=== PATIENT | male | born 1990 | race Caucasian/White ===

== ENCOUNTER 2021-06-29 15:40 | Emergency (ER) | payer OTHER, MEDICARE, SELFPAY ==
--- NOTE | ~2021-06-29 | XR_ITS ---
EXAMINATION: XR FOOT, LEFT CLINICAL INFORMATION: Subacute trauma with pain dorsal lateral foot COMPARISON: None TECHNIQUE: AP, lateral, and oblique views of the left foot. FINDINGS: The bones and soft tissues are normal. No fracture. Alignment is anatomic. Joint spaces are maintained. XR/XR foot LT min 3V IMPRESSION: Normal left foot.
[2021-06-29 17:43] VITALS: BP 135/65; PULSE 135; RESP 22; TEMP 36.6; O2SAT 98; BMI 28.5
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
[2021-06-29 18:33] LABS: MANUAL DIFF FLAG NO
[2021-06-29 18:53] LABS: Anion Gap 9 (12-20); Blood Urea Nitrogen 17 mg/dL (9-16); Calcium 9.1 mg/dL (8.4-10.2); Carbon Dioxide 27 mmol/L (22-29); Chloride 109 mmol/L (96-108); Creatinine Clr Calc Pharmacy 125.7; Estimated Glomerular Filt Rate > 60; Glucose Random 107 mg/dL (60-115); Potassium 3.5 mmol/L (3.3-5.1); Sodium 141 mmol/L (135-145)
[2021-06-29 18:56] LABS: Basophils Percent Auto 0.2 % (0-2); Eosinophils Absolute Auto 0.1 X10*3/uL (0.0-0.4); Eosinophils Percent Auto 0.4 % (0-4); Hematocrit 42.5 % (42.0-52.0); Hemoglobin 14.8 g/dl (14.0-18.0); Imm Gran Abs Auto 0.11 X10*3/uL (0.00-0.03); Imm Gran Pct Auto 0.8 % (0.0-0.4); Lymphocytes Absolute Auto 0.9 X10*3/uL (1.2-4.9); Lymphocytes Percent Auto 6.7 % (20-40); Mean Corpuscular HGB Conc 34.8 g/dl (31.0-36.0); Mean Corpuscular Hemoglobin 31.4 pg (27.0-33.0); Mean Corpuscular Volume 90.2 fL (80.0-98.0); Mean Platelet Volume 9.8 fL (9.4-12.4); Monocytes Absolute Auto 0.3 X10*3/uL (0.1-1.2); Neutrophils Absolute Auto 11.7 x10*3/uL (2.0-8.3); Neutrophils Percent Auto 89.9 % (45-73); Platelet Count 160 X10*3/uL (160-400); Red Blood Count 4.71 X10*6/uL (4.60-5.80); Red Cell Distribution Width 12.5 % (11.0-16.0); Troponin-I High Sensitivity < 3.5 ng/L (<3.5-35.0)
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
[2021-06-29 23:23] VITALS: BP 106/52; PULSE 95; RESP 15; TEMP 37.1; O2SAT 98
[2021-06-29] MEDS: 0.9 % Sodium Chloride 1,000 ML 999 ML IV (23:34)
[2021-06-29] MEDS: clonazePAM 1 MG TABLET PO (23:36)
[2021-06-30] LABS: COVID-19 Test Negative (Negative)
[2021-06-30 00:14] VITALS: BP 109/53; PULSE 95; RESP 18; O2SAT 96
== END 2021-06-30 01:36 | disposition home or self-care (01) ==
LOC: HO.ED 06-30 00:54
PROVIDERS: Emergency Provider Emergency Medicine
DX: S93.602A Unspecified sprain of left foot, initial encounter (principal); R11.0 Nausea; X58.XXXA Exposure to other specified factors, initial encounter; Y93.9 Activity, unspecified; Y92.9 Unspecified place or not applicable; Y99.9 Unspecified external cause status; Z79.899 Other long term (current) drug therapy; Z20.822 Contact with and (suspected) exposure to COVID-19
CPT/HCPCS: 36415; 73630; 80048; 82550; 84484; 85025; 87635; 93005; 96360; 99284; 99285

== ENCOUNTER 2023-10-17 09:22 | Emergency (ER) | payer OTHER, SELFPAY ==
--- NOTE | ~2023-10-17 | XR_ITS ---
EXAMINATION: XR ANKLE, LEFT CLINICAL INFORMATION: Left ankle injury and pain COMPARISON: None available. TECHNIQUE: AP, lateral, and mortise views of the left ankle. FINDINGS: BONES: A small avulsion fracture is seen at the tip of left medial malleolus. Additional vertical radiolucency is seen in anterior distal left tibia extending from the articular plafond into distal left tibial shaft. JOINTS: Alignment of joints is normal. SOFT TISSUE: Soft tissue is normal. No radiopaque foreign body or abnormal air collection is seen. XR/XR ankle LT min 3V IMPRESSION: 1. Small avulsion fracture at the tip of left medial malleolus. 2. Vertical radiolucency in anterior distal left tibia extending from the articular plafond into distal left tibial shaft. This may represent an additional fracture.
--- NOTE | ~2023-10-17 | XR_ITS ---
STUDY: Left tibia and fibula and left foot INDICATION: Left leg pain after jumping injury COMPARISON: Same day left ankle FINDINGS: Visualized knee joint is intact. No proximal or mid tibial or fibular fracture identified. Visualized tarsal bones are intact. Alignment is maintained. On AP view, medial malleolar whitening not excluded. Ankle soft tissues appear prominent. Medial malleolar and avulsion is partially visualized. Distal tibial fracture questioned on same day ankle radiograph not reproduced with certainty on current radiograph. XR/XR foot LT min 3V IMPRESSION: No additional fractures recognized. Please see separately reported same day left ankle study for description of ankle fractures.
--- NOTE | ~2023-10-17 | XR_ITS ---
STUDY: Left tibia and fibula and left foot INDICATION: Left leg pain after jumping injury COMPARISON: Same day left ankle FINDINGS: Visualized knee joint is intact. No proximal or mid tibial or fibular fracture identified. Visualized tarsal bones are intact. Alignment is maintained. On AP view, medial malleolar whitening not excluded. Ankle soft tissues appear prominent. Medial malleolar and avulsion is partially visualized. Distal tibial fracture questioned on same day ankle radiograph not reproduced with certainty on current radiograph. XR/XR tibia fibula LT 2V IMPRESSION: No additional fractures recognized. Please see separately reported same day left ankle study for description of ankle fractures.
[2023-10-17 09:45] VITALS: BP 142/77; PULSE 90; RESP 20; TEMP 36.5; O2SAT 98; BMI 28.2
--- NOTE | 2023-10-17 13:14 | ED.LOWEXIN ---
HPI - Extremity Injury (Lower) General Chief Complaint: Extremity Injury, Lower Stated Complaint: broken ankle ? Time Seen by Provider: 10/17/23 12:45 Source: patient and RN notes reviewed Mode of arrival: ambulatory Limitations: no limitations History of Present Illness HPI Narrative: This is a 33-year-old male, with no known medical problems, who presents emergency department with complaints of left foot and left ankle pain since last night. Patient states that he jumped off a porch, which was approximately 6 ft high, landed on his feet. He immediately felt pain in his left ankle. He states that the pain is much worse with ambulation. He denies hitting his head or loss of consciousness. He denies taking any medications prior to his arrival. Denies injuring this foot and ankle in the past. No other complaints or concerns at this time. MD complaint: ankle injury and foot injury Onset (ago): day(s) Place: home Severity: moderate Relieving factors: nothing Exacerbating factors: weight bearing, movement and palpation Context: fall Related Data Previous Rx's ?Medication ?Instructions ?Recorded ondansetron 4 mg disintegrating 4 mg PO Q6H PRN nausea and 06/30/21 tablet vomiting #10 tabs acetaminophen 500 mg tablet 500 mg PO Q6H PRN pain #30 tabs 10/17/23 (Tylenol Extra Strength) ibuprofen 600 mg tablet 600 mg PO Q6H PRN pain #30 tabs 10/17/23 morphine 15 mg immediate release 15 mg PO Q6H PRN pain #7 tabs 10/17/23 tablet Allergies Allergy/AdvReac Type Severity Reaction Status Date / Time No Known Allergies Allergy Unknown UNKNOWN Verified 10/17/23 09:47 [NO KNOWN ALLERGIES] Review of Systems Review of Systems: Yes all other systems are reviewed and are negative Constitutional: Constitutional: Reports as per [facility] Past Medical History Attestation statement: The following information was validated with the patient. Medical History PTSD (post-traumatic stress disorder) Anxiety Anxiety Social History Social History Alcohol intake: never Patient Tobacco Use Status: Current everyday Tobacco user Substance Use Type: Painkillers Physical Exam Vital Signs: Vital Signs: Last Vital Signs Temp 98.0 F 10/17/23 16:32 Pulse 71 10/17/23 16:32 Resp 18 10/17/23 16:32 BP 121/74 10/17/23 16:32 Pulse Ox 97 10/17/23 16:32 O2 Del Method Room Air 10/17/23 16:32 BMI result Body Mass Index 28.2 Const: General: cooperative, comfortable and no acute distress Orientation/consciousness: patient oriented x3 Limitations: no limitations HEENT: Head: Yes normal to inspection, Yes normocephalic and Yes atraumatic Ears: hearing grossly normal bilaterally General nose exam: Normal external nose present Face and sinus: Yes normal facial exam Mouth: Normal oral and palatal mucosa present, oropharynx normal and moist mucous membranes Throat: Yes posterior oropharynx normal Eyes: General: appearance normal, both eyes and all related structures Eyelids: Yes eyelids normal Conjunctivae: conjunctivae normal Sclerae: sclerae normal Pupils: Equal, round and reactive pupils present EOM: EOMs intact bilaterally Neck: Neck: Yes normal visual inspection, Yes full ROM and Yes no lymphadenopathy Lymphatic: no lymphadenopathy noted Chest: Chest palpation & inspection: normal inspection of the chest Resp: Effort & Inspection: normal respiratory effort and able to speak in complete sentences Auscultation: clear to auscultation bilaterally, no crackles, no rales, no rhonchi and no wheezes Cardio: Rate: regular rate Rhythm: regular rhythm Heart sounds: S1 normal heart sound present and S2 normal heart sound present GI: Inspection: Yes normal to inspection Skin: General skin exam: no rashes or lesions noted Trauma: no lacerations or abrasions Wounds: no wounds Neuro: General: patient oriented x3 and moves all extremities Cranial nerves: Yes Equal, round and reactive pupils present Extrem: Other: Left ankle with moderate edema and ecchymosis seen in the lateral aspect with tenderness palpation overlying the medial and lateral malleolus. Tenderness palpation along the mid tibia and distal tibia. DP pulse 2 +. No open wounds. Distal sensation circulation intact. Limited range of motion secondary to the pain. General: Yes normal to inspection Right upper extremity: normal to inspection Left upper extremity: normal to inspection Right lower extremity: normal to inspection Left lower extremity: normal to inspection Course Reevaluation(s) Reevaluation #1: X-rays were reviewed revealing motion fracture at the tip of the left medial malleolus as well as vertical radiolucency in the anterior distal left tibia extending from the articular plafond into distal left tibial shaft. Patient does have tenderness overlying this region, will treat as a fracture. Discussed case with orthopedic PA, recommending posterior and stirrup splint, nonweightbearing. Patient given orthopedic follow-up, advised on return precautions. He understands and agrees with plan. Patient stable for discharge. Medications Administered Discontinued Medications Generic Name Dose Route Start Last Admin Trade Name Jaylenq PRN Reason Stop Dose Admin Morphine Sulfate 15 mg 10/17/23 13:23 10/17/23 13:47 Morphine Sulfate Immed Release 15 Mg Tablet PO 10/17/23 13:24 15 mg ONCE ONE Administration Medical Decision Making Medical Decision Making MDM Narrative: This is a 33-year-old male, with no known medical problems, presents to the emergency department with complaints of left ankle pain since yesterday. Patient states that he jumped off a deck which was approximately 6 ft up and landed directly on his feet. He states that he immediately had pain in his left ankle and foot. Differential diagnoses include fracture, contusion, sprain, strain. On arrival, blood pressure mildly elevated 142/77. Physical exam findings concerning for fracture, obtain x-rays for further evaluation. Plan: X-ray Differential Diagnosis Differential Diagnoses: The differential diagnosis associated with the presentation includes See above Admission/Observation Consideration of admission/observation: Escalation of care including admission/observation considered Escalation of care including admission/observation considered however given workup today not warranted at this time. Consult Healthcare Provider Management of the patient was discussed with: Keyboard Instrument Repairer Aicha Jurado PA-C Radiology Impression Discussion of test interpretation with radiology: I have reviewed the radiologist's reading. Radiologist Impression: XR/XR ankle LT min 3V IMPRESSION: 1. Small avulsion fracture at the tip of left medial malleolus. 2. Vertical radiolucency in anterior distal left tibia extending from the articular plafond into distal left tibial shaft. This may represent an additional fracture. Dictated By: Lalo Proctor Signed By: <Electronically sign Procedures Orthopedic Splinting/Casting Injury #1: Side: left Lower Extremity Immobilizer: posterior splint and stirrup splint Other Orthopedic Equipment: crutches Discharge Plan Discharge Clinical Impression: Ankle fracture, right, Fracture of tibial plafond Patient Disposition: Home, Self-Care Instructions: Ankle Fracture (ED), Leg Fracture (ED), Crutch Instructions (ED) Additional Instructions: Your seen in the emergency department and you have a fracture along her medial malleolus (inner ankle) You also have a fracture along your distal tibia. Please wear splint until you follow-up with Orthopedics. Call today to make an appointment. Take ibuprofen and Tylenol as needed for pain. I am also prescribing her stronger pain medication also known as morphine. Only take this for severe pain only. We are unable to refill this medication from the emergency room. If any new or worsening symptoms occur including but not limited to severe pain, chest pain, shortness for breath, numbness and tingling into your toes, please return for re-evaluation. Prescriptions: New ibuprofen 600 mg tablet 600 mg PO Q6H PRN (Reason: pain) Qty: 30 0RF acetaminophen [Tylenol Extra Strength] 500 mg tablet 500 mg PO Q6H PRN (Reason: pain) Qty: 30 0RF morphine 15 mg tablet 15 mg PO Q6H PRN (Reason: pain) Qty: 7 0RF Rx Instructions: Partial Fill upon patient request. No Action ondansetron 4 mg tablet,disintegrating 4 mg PO Q6H PRN (Reason: nausea and vomiting) Qty: 10 0RF Referrals: [facility] [place] Orthopedic Surgeons [Provider Group] Interventions: ED Discharge Assessment Last Done: 10/17/23 16:32 Discharge Date/Time: 10/17/23 16:33 Print Language: [place]an
[2023-10-17] MEDS: Morphine Sulfate Immed Release 15 MG TABLET PO (13:47)
[2023-10-17 13:48] VITALS: BP 124/59; PULSE 59; RESP 18; TEMP 36.6; O2SAT 97
[2023-10-17 16:32] VITALS: BP 121/74; PULSE 71; RESP 18; TEMP 36.7; O2SAT 97
== END 2023-10-17 16:33 | disposition home or self-care (01) ==
PROVIDERS: Emergency Provider Emergency Medicine
DX: S82.891A Other fracture of right lower leg, initial encounter for closed fracture (principal); M79.605 Pain in left leg; M25.572 Pain in left ankle and joints of left foot; W01.0XXA Fall on same level from slipping, tripping and stumbling without subsequent striking against object, initial encounter; Y93.9 Activity, unspecified; Y92.9 Unspecified place or not applicable; Y99.8 Other external cause status
CPT/HCPCS: 29505; 73590; 73610; 73630; 99284

== ENCOUNTER 2023-10-26 08:37 | Outpatient (AMB) | payer OTHER, SELFPAY ==
--- NOTE | 2023-10-26 08:38 | MHC.OFFVIS ---
Vital Signs 10/26/23 08:43 Height 6 ft Weight 208 lb BMI 28.2 Intake Visit Reasons: F/C ED follow up RT ankle fx 10/17/23 Intake Note: Angelito a 33 year old male who presents today for an ER follow up of left ankle fracture, DOI 10/16/23. Patient states that he jumped off his porch, which was approximately 7 ft high, landing on his feet. He immediately felt pain in his left ankle, he presented to [facility] the following day where xrays were taken and placed in a splint. Currently his pain level is 7 out of 10. States throbbing pain and at times shooting pain up his leg. Denies numbness or tingling. Allergies No Known Allergies [NO KNOWN ALLERGIES] Allergy (Unknown, Verified 10/26/23 08:48) UNKNOWN Medication List - Last Reconciled 10/26/23 by XIOMARA Sweet-Daniel acetaminophen (Tylenol Extra Strength) 500 mg PO Q6H PRN dextroamphetamine-amphetamine 20 mg (Adderall) 40 mg PO DAILY ibuprofen 600 mg PO Q6H PRN morphine 15 mg PO Q6H PRN ondansetron 4 mg PO Q6H PRN HPI HPI F/C ED follow up RT ankle fx 10/17/23: Details: 33-year-old male who presents to the office today for an ED follow-up of right ankle injury after he jumped off a porch which was approx. 7 feet high and landing on his feet, 10/16/23. He reports he immediately felt pain in his left ankle and was presented to ED the following day where x-rays were performed and he was placed in a splint. He currently states he has throbbing pain in his ankle and experiences occasional throbbing pain up his leg. He rates the pain as 7 on the scale of 0-10. He denies any numbness or tingling. [facility] Medical History PTSD (post-traumatic stress disorder) Anxiety Anxiety Social History (Updated 10/26/23 @ 08:52 by DAVID Sosa) Alcohol intake: never Patient Tobacco Use Status: Former Tobacco user Substance Use Type: Painkillers Current occupational status: student Review of Systems Const All systems reviewed & are unremarkable except as noted in HPI and below Physical Exam Vital Signs: BMI result Body Mass Index 28.2 Const General: cooperative, healthy appearing, comfortable, no acute distress, well developed and alert Orientation/consciousness: patient oriented x3 HEENT Head: Yes normal to inspection, Yes normocephalic and Yes atraumatic Eyes General: appearance normal, both eyes and all related structures Resp Effort & Inspection: normal respiratory effort and able to speak in complete sentences Cardio Rate: regular rate Peripheral pulses: Peripheral pulses 2+ throughout GI Palpation (GI): Soft to palpation Skin Lesions: no lesions Rashes: no rashes Neuro General: patient oriented x3 Extrem Other: Left ankle: Normal to inspection. He does have some tenderness over the anterior aspect of the talus and also to the medial malleolus. No significant swelling, no ecchymosis. Sensation is intact pulses are present. Office Procedures Casting/Splints [id number] Leg Cast Application Procedure code (CPT) selection complete Results Reviewed Results Reviewed: X-rays of the left ankle obtained in the office today show an evulsion fracture through the medial malleolus and fracture through the anterior portion of the tibia which maybe extending to the articular surfaces. Assessment & Plan Assessment & Plan (1) Medial malleolar fracture: Code(s): S82.53XA - Displaced fracture of medial malleolus of unspecified tibia, initial encounter for closed fracture Category: Medical Qualifiers: Encounter type: initial encounter Fracture type: closed Fracture alignment: nondisplaced Laterality: left Qualified Code(s): S82.55XA - Nondisplaced fracture of medial malleolus of left tibia, initial encounter for closed fracture (2) Fracture of distal end of tibia: Code(s): S82.309A - Unspecified fracture of lower end of unspecified tibia, initial encounter for closed fracture Category: Medical Qualifiers: Encounter type: initial encounter Fracture type: closed Fracture morphology: unspecified fracture morphology Laterality: left Qualified Code(s): S82.302A - Unspecified fracture of lower end of left tibia, initial encounter for closed fracture Plan He was placed in a short leg cast. He will remain non weight bearing. A CT scan of the left ankle was ordered to further evaluate the extent of fracture. Once the scan is complete, he will see us back to discuss the next step in his treatment. Fracture code not billed at this time-will re-evaluate after CT scan Orders: Orders XR ankle LT min 3V Today M25.572 - Pain in left ankle and joints of left foot CT ankle LT wo IV con Today S82.53XA - Displaced fracture of medial malleolus of unspecified tibia, initial encounter for closed fracture, S92.102A - Unspecified fracture of left talus, initial encounter for closed fracture Patient Instructions: Scribed for Aicha Jurado PA-C, by Yousif Van medical technologist prn, on 10/26/2023 at 9:00 AM EST. IAicha PA-C, have personally reviewed and agree with the information entered by the scribe. Coding Level of Care Code New Pt Level 3 (82116) Diagnoses Closed nondisplaced fracture of medial malleolus of left tibia, initial encounter S82.55XA Encounter type: initial encounter Fracture type: closed Fracture alignment: nondisplaced Laterality: left Closed fracture of distal end of left tibia, unspecified fracture morphology, initial encounter S82.302A Encounter type: initial encounter Fracture type: closed Fracture morphology: unspecified fracture morphology Laterality: left CPT Codes Casting - CPT: 37343-Eaux[employer] Leg Cast Application ([id number])
[2023-10-26 08:43] VITALS: BMI 28.2
== END 2023-10-26 09:51 | disposition home or self-care (01) ==
PROVIDERS: Visit Provider Physician Assistant
DX: S82.55XA Nondisplaced fracture of medial malleolus of left tibia, initial encounter for closed fracture (principal)
CPT/HCPCS: 27760; 29405; 99203

== ENCOUNTER 2023-10-26 09:12 | Outpatient (REF) | payer OTHER, SELFPAY ==
--- NOTE | ~2023-10-26 | XR_ITS ---
EXAMINATION: XR ANKLE, LEFT CLINICAL INFORMATION: Pain in the left ankle and left foot. COMPARISON: None available. TECHNIQUE: AP, lateral, and mortise views of the left ankle. FINDINGS: Persistent intra-articular fracture the distal tibia nondisplaced or minimally displaced unchanged compared to prior. No effusion. [place] distal to the medial malleolus. Remaining bones and joints visualized are unremarkable. XR/XR ankle LT min 3V IMPRESSION: Persistent intra-articular fracture of the distal tibia unchanged compared to prior.
== END 2023-10-26 09:13 | disposition home or self-care (01) ==
LOC: HO.HOSX 09:12
PROVIDERS: Visit Provider Physician Assistant
DX: S82.55XA Nondisplaced fracture of medial malleolus of left tibia, initial encounter for closed fracture (principal); S92.102A Unspecified fracture of left talus, initial encounter for closed fracture; W13.8XXA Fall from, out of or through other building or structure, initial encounter; Y93.9 Activity, unspecified; Y92.9 Unspecified place or not applicable; Y99.9 Unspecified external cause status
CPT/HCPCS: 27760; 29405; 73610; 99202

== ENCOUNTER 2023-12-07 12:20 | Outpatient (REF) | payer OTHER, SELFPAY ==
--- NOTE | ~2023-12-07 | XR_ITS ---
EXAMINATION: XR ANKLE, LEFT CLINICAL INFORMATION: Pain in left ankle and joints of left foot. COMPARISON: 10/26/2023 left ankle, 10/17/2023 left ankle and foot. TECHNIQUE: AP, lateral, and mortise views of the left ankle. FINDINGS: Redemonstration of intra-articular fracture of the distal tibia with minimal displacement, alignment maintained. Fracture line is still visible, but less conspicuous suggesting some interval bridging callus formation. Redemonstration of ossicle distal to the medial malleolus. Decreased soft tissue swelling. XR/XR ankle LT min 3V IMPRESSION: Redemonstration of intra-articular fracture of the distal tibia with minimal displacement, alignment maintained. Fracture line is still visible, but less conspicuous suggesting some interval bridging callus formation. Redemonstration of ossicle distal to the medial malleolus.
== END 2023-12-07 12:21 | disposition home or self-care (01) ==
LOC: HO.HOSX 12:20
PROVIDERS: Visit Provider Physician Assistant
DX: S82.55XD Nondisplaced fracture of medial malleolus of left tibia, subsequent encounter for closed fracture with routine healing (principal)
CPT/HCPCS: 73610; 99212

== ENCOUNTER 2023-12-07 12:25 | Outpatient (AMB) | payer OTHER, SELFPAY ==
--- NOTE | 2023-12-07 12:56 | A.OFFVIS_ITS ---
Intake Visit Reasons: O/V FX of left talus, Medial malleolar fx 10/17/23 Intake Note: Angelito a 33 year old male who presents today for a CT review of his left ankle fracture, DOI 10/16/23. Patient reports his pain is mostly at night but he is taking ibuprofen that is helpful. Allergies No Known Allergies [NO KNOWN ALLERGIES] Allergy (Unknown, Verified 12/07/23 12:57) UNKNOWN HPI HPI O/V FX of left talus, Medial malleolar fx 10/17/23: Details: 33-year-old male who returns to the office today for a CT scan review of left ankle fracture, 10/16/23. He states he has improvement in his pain however he continues to have pain mostly at night. He finds relief with ibuprofen. [facility] Medical History PTSD (post-traumatic stress disorder) Anxiety Anxiety Social History (Updated 10/26/23 @ 08:52 by Candi Mathias [facility]) Alcohol intake: never Patient Tobacco Use Status: Former Tobacco user Substance Use Type: Painkillers Current occupational status: student Review of Systems Const All systems reviewed & are unremarkable except as noted in HPI and below Physical Exam Const General: cooperative, healthy appearing, comfortable, no acute distress, well d eveloped and alert Orientation/consciousness: patient oriented x3 HEENT Head: Yes normal to inspection, Yes normocephalic and Yes atraumatic Eyes General: appearance normal, both eyes and all related structures Resp Effort & Inspection: normal respiratory effort and able to speak in complete sentences Cardio Rate: regular rate Peripheral pulses: Peripheral pulses 2+ throughout GI Palpation (GI): Soft to palpation Skin Lesions: no lesions Rashes: no rashes Neuro General: patient oriented x3 Extrem Other: Left ankle: Normal to inspection. He does have some tenderness over the anterior aspect of the talus and also to the medial malleolus. No significant swelling, no ecchymosis. Sensation is intact pulses are present. Results Reviewed Results Reviewed: X-rays of the left ankle obtained in the office today show an evulsion fracture through the medial malleolus and fracture through the anterior portion of the tibia which may be extending to the articular surfaces. Assessment & Plan Assessment & Plan (1) Medial malleolar fracture: Code(s): S82.53XA - Displaced fracture of medial malleolus of unspecified tibia, initial encounter for closed fracture Category: Medical Qualifiers: Encounter type: initial encounter Fracture alignment: nondisplaced Fracture type: closed Laterality: left Qualified Code(s): S82.55XA - Nondisplaced fracture of medial malleolus of left tibia, initial encounter for closed fracture (2) Fracture of distal end of tibia: Code(s): S82.309A - Unspecified fracture of lower end of unspecified tibia, initial encounter for closed fracture Category: Medical Qualifiers: Encounter type: initial encounter Fracture morphology: unspecified fracture morphology Fracture type: closed Laterality: left Qualified Code(s): S82.302A - Unspecified fracture of lower end of left tibia, initial encounter for closed fracture Plan The skin was a bit macerated along the heel therefore we will hold off on cast at this time. He will be placed in a tall boot non weight bearing. I did explain the importance of non-weight bearing. He can get out of the boot for stretching exercises and allow the skin to dry out. If he has any concerns of skin breakdown, foul odor or infection, he will contact the office, otherwise he will see me back in 3 weeks with new x-rays, sooner if needed. Orders: Orders XR ankle LT min 3V Today M25.572 - Pain in left ankle and joints of left foot Patient Instructions: Scribed for Aicha Jurado PA-C, by Yousif Van medical genetics director, on 12/07/2023 at 12:30 PM EST.? I, Aicha Jurado PA-C, have personally reviewed and agree with the information entered by the scribe. Coding Level of Care Code Global (49735) Diagnoses Closed nondisplaced fracture of medial malleolus of left tibia, initial enco unter S82.55XA Encounter type: initial encounter Fracture alignment: nondisplaced Fracture type: closed Laterality: left Closed fracture of distal end of left tibia, unspecified fracture morphology, initial encounter S82.302A Encounter type: initial encounter Fracture morphology: unspecified fracture morphology Fracture type: closed Laterality: left
== END 2023-12-07 13:24 | disposition home or self-care (01) ==
PROVIDERS: Visit Provider Physician Assistant
DX: S82.55XA Nondisplaced fracture of medial malleolus of left tibia, initial encounter for closed fracture (principal); S82.302A Unspecified fracture of lower end of left tibia, initial encounter for closed fracture
CPT/HCPCS: 99024

== ENCOUNTER 2024-01-04 12:25 | Outpatient (REF) | payer OTHER, SELFPAY ==
--- NOTE | ~2024-01-04 | XR_ITS ---
EXAMINATION: XR ANKLE, LEFT CLINICAL INFORMATION: Pain in left ankle and joints of left foot. COMPARISON: December 07, 2023 TECHNIQUE: AP, lateral, and mortise views of the left ankle. FINDINGS: Intra-articular fracture of the distal fibula with minimal displacement redemonstrated. Fracture line is less visible suggesting interval bridging callus formation. Redemonstration of ossicle distal to the medial malleolus with possible mild interval bridging callus formation. XR/XR ankle LT min 3V IMPRESSION: 1. Intra-articular fracture of the distal fibula with minimal displacement redemonstrated. Fracture line is less visible suggesting interval bridging callus formation. 2. Redemonstration of ossicle distal to the medial malleolus with possible mild interval bridging callus formation.
== END 2024-01-04 12:26 | disposition home or self-care (01) ==
LOC: HO.HOSX 12:25
PROVIDERS: Visit Provider Physician Assistant
DX: M25.572 Pain in left ankle and joints of left foot (principal); S92.102D Unspecified fracture of left talus, subsequent encounter for fracture with routine healing; S82.55XD Nondisplaced fracture of medial malleolus of left tibia, subsequent encounter for closed fracture with routine healing; X58.XXXD Exposure to other specified factors, subsequent encounter
CPT/HCPCS: 73610; 99212

== ENCOUNTER 2024-01-04 13:22 | Outpatient (AMB) | payer OTHER, SELFPAY ==
--- NOTE | 2024-01-04 13:39 | MHC.OFFVIS ---
Vital Signs 01/04/24 13:44 Height 6 ft Weight 210 lb BMI 28.5 Intake Visit Reasons: OV- FX of left talus, Medial malleolar fx 10/17/23 Intake Note: Angelito is a 33 year old male who presents today ,using crutches, for a follow up s/p left ankle fracture, DOI 10/16/23. Patient reports he has been doing home exercises as ordered and staying off his foot as much as possible. He expresses improvement is his pain level and has no major concerns today. Allergies No Known Allergies [NO KNOWN ALLERGIES] Allergy (Unknown, Verified 01/04/24 13:45) UNKNOWN HPI HPI OV- FX of left talus, Medial malleolar fx 10/17/23: Details: 33-year-old male who returns to the office today with crutches for a follow-up of left foot fracture, 10/17/23. He states he has improvement in his pain and is doing well overall. He reports he has been doing home exercises as instructed and non-weight bearing as much as possible. He has no other concerns today. [facility] Medical History PTSD (post-traumatic stress disorder) Anxiety Anxiety Social History Alcohol intake: never Patient Tobacco Use Status: Former Tobacco user Substance Use Type: Painkillers Current occupational status: student Review of Systems Const All systems reviewed & are unremarkable except as noted in HPI and below Physical Exam Vital Signs: BMI result Body Mass Index 28.5 Const General: cooperative, healthy appearing, comfortable, no acute distress, well developed and alert Orientation/consciousness: patient oriented x3 HEENT Head: Yes normal to inspection, Yes normocephalic and Yes atraumatic Eyes General: appearance normal, both eyes and all related structures Resp Effort & Inspection: normal respiratory effort and able to speak in complete sentences Cardio Rate: regular rate Peripheral pulses: Peripheral pulses 2+ throughout GI Palpation (GI): Soft to palpation Skin Lesions: no lesions Rashes: no rashes Neuro General: patient oriented x3 Extrem Other: Left ankle: Normal to inspection. He does have some tenderness over the anterior aspect of the talus and . No significant swelling, no ecchymosis. Sensation is intact pulses are present. Results Reviewed Results Reviewed: X-rays of the left ankle obtained in the office today show an avulsion fracture through the medial malleolus and fracture through the anterior portion of the tibia which may be extending to the articular surfaces with interval healing and stability Assessment & Plan Assessment & Plan (1) Fracture of left talus: Code(s): S92.102A - Unspecified fracture of left talus, initial encounter for closed fracture Category: Medical Qualifiers: Encounter type: subsequent encounter Fracture type: closed Talus location: unspecified portion of talus Fracture alignment: nondisplaced Fracture healing: with routine healing Qualified Code(s): S92.102D - Unspecified fracture of left talus, subsequent encounter for fracture with routine healing (2) Medial malleolar fracture: Code(s): S82.53XA - Displaced fracture of medial malleolus of unspecified tibia, initial encounter for closed fracture Category: Medical Qualifiers: Encounter type: subsequent encounter Fracture alignment: nondisplaced Fracture type: closed Laterality: left Fracture healing: with routine healing Qualified Code(s): S82.55XD - Nondisplaced fracture of medial malleolus of left tibia, subsequent encounter for closed fracture with routine healing (3) Fracture of distal end of tibia: Code(s): S82.309A - Unspecified fracture of lower end of unspecified tibia, initial encounter for closed fracture Category: Medical Qualifiers: Encounter type: subsequent encounter Fracture morphology: unspecified fracture morphology Fracture type: closed Laterality: left Fracture healing: with routine healing Qualified Code(s): S82.302D - Unspecified fracture of lower end of left tibia, subsequent encounter for closed fracture with routine healing Plan He was transitioned to a lace up ankle brace weight bearing as tolerated. I strongly recommend he discontinues the boot along with the crutches. He will begin a course of physical therapy to work on ROM, gait training, strengthening and proprioceptive training. He will wear the brace when he is out and avoid impact activities for 4 weeks and he will gradually increase activities with physical therapy. If symptoms persist or worsen, patient will contact the office, otherwise follow-up as needed. Orders: Orders PT Evaluation and Treatment Today S82.302A - Unspecified fracture of lower end of left tibia, initial encounter for closed fracture, S82.55XA - Nondisplaced fracture of medial malleolus of left tibia, initial encounter for closed fracture, S92.102A - Unspecified fracture of left talus, initial encounter for closed fracture XR ankle LT min 3V Today M25.572 - Pain in left ankle and joints of left foot Patient Instructions: Scribed for Aicha Jurado PA-C, by Yousif Van lpn medical assistant, on 01/04/2024 at 1:15 PM EST.? I, Aicha Jurado PA-C, have personally reviewed and agree with the information entered by the scribe. Coding Level of Care Code Global (09679) Diagnoses Closed nondisplaced fracture of left talus with routine healing, unspecified portion of talus, subsequent encounter S92.102D Encounter type: subsequent encounter Fracture type: closed Talus location: unspecified portion of talus Fracture alignment: nondisplaced Fracture healing: with routine healing Closed nondisplaced fracture of medial malleolus of left tibia with routine healing, subsequent encounter S82.55XD Encounter type: subsequent encounter Fracture alignment: nondisplaced Fracture type: closed Laterality: left Fracture healing: with routine healing Closed fracture of distal end of left tibia with routine healing, unspecified fracture morphology, subsequent encounter S82.302D Encounter type: subsequent encounter Fracture morphology: unspecified fracture morphology Fracture type: closed Laterality: left Fracture healing: with routine healing
[2024-01-04 13:44] VITALS: BMI 28.5
== END 2024-01-04 14:14 | disposition home or self-care (01) ==
LOC: HO.HOS 13:22
PROVIDERS: Visit Provider Physician Assistant
DX: S92.102D Unspecified fracture of left talus, subsequent encounter for fracture with routine healing (principal); S82.55XD Nondisplaced fracture of medial malleolus of left tibia, subsequent encounter for closed fracture with routine healing; S82.302D Unspecified fracture of lower end of left tibia, subsequent encounter for closed fracture with routine healing
CPT/HCPCS: 99024

== ENCOUNTER 2024-04-08 01:10 | Emergency (ER) | payer OTHER, SELFPAY ==
[2024-04-08 01:17] VITALS: BP 178/80; PULSE 106; O2SAT 97
--- NOTE | 2024-04-08 01:21 | PC.NURSE ---
at pts side assessing pt. Per PD, pt is under the influence of an unknown substance and in protective custody. Per PD, pt is not able to leave until he gets a medical eval. Pt calm/cooperative, speaking full sentences. Denies any medical complaints.
--- NOTE | 2024-04-08 01:24 | ED_ITS ---
HPI - General Adult General Stated complaint: drug use Time Seen by Provider: 04/08/24 01:24 Source: patient, EMS and police Mode of arrival: EMS Limitations: no limitations History of Present Illness ED Provider: DR. Bhatia HPI narrative: 33-year-old male brought in by EMS and police for evaluation of possible drug use, as per police patient was agitating acting belligerent, patient in the emergency department is AAO x3, does not want to be in the emergency department, admitted to drinking 1 beer earlier today, able to walk steadily in the emergency department, no SI, no HI, no hallucination. Patient insisted to be discharged home, patent ambulated in the ED with a steady gait patient was offered to staple 06:00 and then discharge but he wanted to be discharged now to go back home patient will be walk-in to [place]. Related Data Home Medications ?Medication ?Instructions ?Recorded ?Confirmed dextroamphetamine-amphetamine 20 40 mg PO DAILY 10/26/23 10/26/23 mg tablet (Adderall) Previous Rx's ?Medication ?Instructions ?Recorded acetaminophen 500 mg tablet 500 mg PO Q6H PRN pain #30 tabs 10/17/23 (Tylenol Extra Strength) ibuprofen 600 mg tablet 600 mg PO Q6H PRN pain #30 tabs 10/17/23 Allergies Allergy/AdvReac Type Severity Reaction Status Date / Time No Known Allergies Allergy Unknown UNKNOWN Verified 01/04/24 13:45 [NO KNOWN ALLERGIES] Review of Systems Review of Systems: all other systems are reviewed and are negative Constitutional: Reports as per HPI and Reports no additional constitutional complaints Eyes: Reports as per HPI and Reports no additional eye complaints Reports system reviewed and no additional complaints, except as documented Cardiovascular: Reports as per HPI and Reports no additional cardiovascular complaints Respiratory: Reports as per HPI and Reports no additional respiratory complaints Gastrointestinal: Reports as per HPI and Reports no additional gastrointestinal complaints Genitourinary: Reports no additional female genitourinary complaints Musculoskeletal: Reports no additional musculoskeletal complaints Skin/Breast: Reports system reviewed and no additional complaints, except as docu Psychiatric: Reports no additional psychiatric complaints Endocrine: Reports no additional endocrine complaints Hematologic/Lymphatic: Reports no additional hematologic/lymphatic complaints Allergic/Immunologic: Reports no additional allergic/immunologic complaints Reports system reviewed and no additional complaints, except as documented and Reports Abnormal speech present [facility] Past Medical History Medical History PTSD (post-traumatic stress disorder) Anxiety Anxiety Social History Social History Alcohol intake: never Patient Tobacco Use Status: Former Tobacco user Substance Use Type: Painkillers Current occupational status: student Physical Exam ED Vital Signs: Vital signs have been reviewed and appear to be correct. Blood pressure elevated. Heart rate normal. Respiratory rate normal. Temperature normal. Oxygen saturation normal. Appearance: Alert. Oriented X3. No acute distress. Head: Normal external exam. Normocephalic. Atraumatic. No Seals signs noted. No raccoon eyes noted Eyes: PERRLA. EOMI. Conjunctiva and sclera normal. Eyelids normal. ENT: TM's Normal. Pharynx normal. Uvula midline. Moist mucous membranes. No trismus noted. No drooling noted. No muffled voice noted. Neck: Normal inspection. Neck supple. FROM. No adenopathy. Thyroid Normal. No meningeal signs. No neck mass noted. CVS: Normal heart rate and rhythm. Heart sound normal. No murmurs noted. Pulses normal throughout. Respiratory: No respiratory distress. Painless inspiration. Breath sounds nor mal. No wheezes/rales/rhonchi noted. Chest nontender. No accessory muscle usage noted or decreased air movement noted. Abdomen: Soft and nontender. Bowel sounds normal in all 4 quadrants. No distent ion noted. No organomegaly noted. No visible injury noted. Back: No CVA tenderness. Full range of motion noted. Skin: Skin warm and dry. Normal skin color. Normal skin turgor. No rashes/lesions/lacerations noted. Extremities: No lower extremity edema. Extremities exhibit normal range of motion. Extremities nontender. Neuro: Oriented X 3. Cranial nerve exam: II-XII are grossly intact No motor deficit. No sensory deficit. Reflexes normal. Patient Orientation: Person, Place, Time and Situation, okay hygiene and grooming. Fair eye contact, attentive, no tics or tremors. Level of Consciousness: Awake, Appropriate and Alert Patient Behavior: Appropriate, Guarded, Cooperative and Anxious Mood Description: Constricted, Blunted and Apprehensive Affect Description: Constricted, Blunted and Apprehensive Patient Cognition Impaired: No Ability to Follow Directions: Excellent Speech Pattern: Clear, Appropriate and Spontaneous Speech, nonpressured, spontaneous with regular rate and rhythm, normal volume and prosody. No dysarthria. Memory Description: Intact, Immediate Intact and Short Term Intact Hallucinations: None Delusions: Not Present Thought Process: Intact Thought Content: positive for Intact, positive for Logical, denies Suicidal Ideation and denies Homicidal Ideation. Depressive Symptoms: Not present. Judgement and Insight: Limited but adequate. Course Reevaluation(s) Reevaluation #1: AAO x3, no evidence of mental issue, patient is calm, polite, no SI, no HI, refused to be in the emergency department and insist to be discharged home. Time: 01:30 Medical Decision Making Differential Diagnosis Differential Diagnoses: The differential diagnosis associated with the presentation includes ( Medical screening exam.) Discharge Plan Discharge Clinical Impression: Encounter for medical screening examination Patient Disposition: Home, Self-Care Instructions: Normal Exam (ED) Prescriptions: No Action ibuprofen 600 mg tablet 600 mg PO Q6H PRN (Reason: pain) Qty: 30 0RF acetaminophen [Tylenol Extra Strength] 500 mg tablet 500 mg PO Q6H PRN (Reason: pain) Qty: 30 0RF dextroamphetamine-amphetamine [Adderall] 20 mg tablet 40 mg PO DAILY Print Language: Hungarian
[2024-04-08 01:34] VITALS: BP 157/87; PULSE 64; RESP 16; O2SAT 98; BMI 27.1
[2024-04-08 01:40] VITALS: BP 0/0; PULSE 0; RESP 0; TEMP -17.7; TEMP 0; O2SAT 0
== END 2024-04-08 01:40 | disposition home or self-care (01) ==
PROVIDERS: Emergency Provider Emergency Medicine
DX: F91.8 Other conduct disorders (principal); Z87.891 Personal history of nicotine dependence
CPT/HCPCS: 99282

== ENCOUNTER 2024-06-04 03:58 | Emergency (ER) | payer OTHER, SELFPAY ==
[2024-06-04 04:01] VITALS: BP 152/80; PULSE 125; O2SAT 98
[2024-06-04 04:04] VITALS: BMI 27.1
--- NOTE | 2024-06-04 04:17 | PC.NURSE ---
Pt states would like to be discharged. Not on a section.
[2024-06-04 04:18] VITALS: BP 147/83; PULSE 104; RESP 18; TEMP 36.9; O2SAT 96
--- NOTE | 2024-06-04 04:18 | ED_ITS ---
HPI - General Adult General Chief complaint: ETOH/Substance Use Stated complaint: ETOH, COCAINE USE Time Seen by Provider: 06/04/24 04:18 Source: patient and EMS Mode of arrival: EMS Limitations: no limitations History of Present Illness ED Provider: HPI narrative: Patient's history of cocaine alcohol abuse was at home using cocaine and alcohol patient's roommate called the EMS as he was breaking things and has hallucinating patient declines this on arrival patient is sober without any hallucinations or delusions patient does not want any detox Related Data Home Medications ?Medication ?Instructions ?Recorded ?Confirmed dextroamphetamine-amphetamine 20 40 mg PO DAILY 10/26/23 10/26/23 mg tablet (Adderall) Previous Rx's ?Medication ?Instructions ?Recorded acetaminophen 500 mg tablet 500 mg PO Q6H PRN pain #30 tabs 10/17/23 (Tylenol Extra Strength) ibuprofen 600 mg tablet 600 mg PO Q6H PRN pain #30 tabs 10/17/23 Allergies Allergy/AdvReac Type Severity Reaction Status Date / Time No Known Allergies Allergy Unknown UNKNOWN Verified 06/04/24 04:11 [NO KNOWN ALLERGIES] Review of Systems Review of Systems: Yes all other systems are reviewed and are negative PMF Past Medical History Medical History PTSD (post-traumatic stress disorder) Anxiety Anxiety Social History Social History Alcohol intake: current Patient Tobacco Use Status: Former Tobacco user Smoked in Last 30 Days: No Substance Use Type: Crack/Cocaine Advance Directives: No Do you have a plan to hurt others: No Plan Current occupational status: student Physical Exam ED Vital Signs: Vital Signs - 24 hr 06/04/24 04:18 06/04/24 04:40 Temperature 98.5 F 98.5 F Pulse Rate 104 H 104 H Respiratory Rate 18 18 Blood Pressure 147/83 H 147/83 H Pulse Oximetry 96 96 Oxygen Delivery Method Room Air Room Air BMI result Body Mass Index 27.1 Appearance: Alert. Oriented X3. No acute distress. Eyes: PERRLA, No Nystagmus ENT: Pharynx normal. Oral Mucosa moist Neck: Normal inspection. Neck supple. CVS: Normal heart rate and rhythm. Pulses normal. Respiratory: No respiratory distress. Equal air entry bilateral, no wheezing/rales/rhonchi Abdomen: Soft and nontender. Bowel sounds are present, no mass palpable, no CVA tenderness Skin: Skin warm and dry. Normal skin color. Normal skin turgor. Extremities: No lower extremity edema. No calf tenderness Neuro: Oriented X 3. No motor deficit. No sensory deficit.No cerebellar signs , cranial nerves II-XII intact Medical Decision Making Medical Decision Making MDM Narrative: Patient's polysubstance abuse alert oriented x3 with stable mood does not want any help will discharge patient home Discharge Plan Discharge Clinical Impression: Polysubstance abuse Patient Disposition: Home, Self-Care Instructions: Polysubstance Abuse (ED) Additional Instructions: Stop using cocaine alcohol Follow detox if needed Prescriptions: No Action ibuprofen 600 mg tablet 600 mg PO Q6H PRN (Reason: pain) Qty: 30 0RF acetaminophen [Tylenol Extra Strength] 500 mg tablet 500 mg PO Q6H PRN (Reason: pain) Qty: 30 0RF dextroamphetamine-amphetamine [Adderall] 20 mg tablet 40 mg PO DAILY Interventions: ED Discharge Assessment Last Done: 06/04/24 04:40 Discharge Date/Time: 06/04/24 04:41 Print Language: Marshallese
[2024-06-04 04:40] VITALS: BP 147/83; PULSE 104; RESP 18; TEMP 36.9; O2SAT 96
== END 2024-06-04 04:41 | disposition home or self-care (01) ==
PROVIDERS: Emergency Provider Internal Medicine
DX: F19.10 Other psychoactive substance abuse, uncomplicated (principal)
CPT/HCPCS: 99284

== ENCOUNTER 2024-10-05 19:23 | Inpatient (IN) | payer OTHER, SELFPAY ==
[2024-10-05] VITALS (7 sets, daily range): BP systolic 137–163; BP diastolic 74–80; PULSE 84–127; RESP 18–26; TEMP 36.6–38.4; O2SAT 95–99; BMI 29.2
--- NOTE | ~2024-10-05 | XR_ITS ---
CLINICAL HISTORY: pain, swelling 3 view right hand Comparison: None Findings: No fractures or dislocations. No significant arthritic change. No erosions. No radiopaque foreign body. IMPRESSION: 1. No acute osseous injury. No significant degenerative disease. This document has been electronically signed by: Logan Duffy MD on 10/05/2024 21:21:11
--- NOTE | 2024-10-05 19:51 | ED.GENADULT ---
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 [employer] does not remember anything injuring him at that time but noticed slight pain and when he woke up today pain got worse with increased swelling of the finger patient does have history of IVDU and MRSA no paresthesia pain is spreading from middle finger to the palm Related Data Home Medications ?Medication ?Instructions ?Recorded ?Confirmed dextroamphetamine-amphetamine 20 40 mg PO DAILY 10/26/23 10/26/23 mg tablet (Adderall) Previous Rx's ?Medication ?Instructions ?Recorded acetaminophen 500 mg tablet 500 mg PO Q6H PRN pain #30 tabs 10/17/23 (Tylenol Extra Strength) ibuprofen 600 mg tablet 600 mg PO Q6H PRN pain #30 tabs 10/17/23 Allergies Allergy/AdvReac Type Severity Reaction Status Date / Time No Known Allergies Allergy Unknown UNKNOWN Verified 10/05/24 19:55 [NO KNOWN ALLERGIES] Review of Systems Review of Systems: Yes all other systems are reviewed and are negative PMFSH Past Medical History Medical History Hepatitis C IVDU (intravenous drug user) PTSD (post-traumatic stress disorder) Anxiety Anxiety Social History Social History Alcohol intake: current Patient Tobacco Use Status: Former Tobacco user Use of substances other than those prescribed or required for medical reasons: Yes Substance Use Type: Heroin Substance Use Frequency: Chronic Longstanding Substance Use Frequency Other:: Patient states not using at this time Last Used Substance: Unknown Advance Directives: No Advance Directives Information Provided: Yes Do you have a plan to hurt others: No Plan Nutrition Risks: No Nutritional Risk Current occupational status: student Physical Exam ED Vital Signs: Vital Signs - 24 hr 10/05/24 19:52 10/05/24 20:00 10/05/24 21:16 Temperature 101.1 F H 98.8 F Pulse Rate 127 H 84 87 Respiratory Rate 18 18 26 H Blood Pressure 161/78 H 155/74 H 137/78 Pulse Oximetry 96 97 95 Oxygen Delivery Method Room Air Room Air Room Air 10/05/24 21:42 10/05/24 22:00 10/05/24 22:37 Temperature 100.1 F Pulse Rate 107 H 88 85 Respiratory Rate 20 20 20 Blood Pressure 163/79 H 147/80 H 150/75 H Pulse Oximetry 99 98 98 Oxygen Delivery Method Room Air Room Air Room Air 10/05/24 23:04 Temperature 97.9 F Pulse Rate 90 Respiratory Rate 20 Blood Pressure 153/74 H Pulse Oximetry 98 Oxygen Delivery Method Room Air BMI result Body Mass Index 29.2 Appearance: Alert. Oriented X3. In moderate distress Eyes: PERRLA, No Nystagmus ENT: Pharynx normal. Oral Mucosa moist Neck: Normal inspection. Neck supple. CVS: Normal heart rate and rhythm. Pulses normal. Respiratory: No respiratory distress. Equal air entry bilateral, no wheezing/rales/rhonchi Abdomen: Soft and nontender. Bowel sounds are present, no mass palpable, no CVA tenderness Skin: Skin warm and dry. Normal skin color. Normal skin turgor. Extremities: No lower extremity edema. No calf tenderness right middle finger swelling with oozing serous fluid on the medial aspect no foreign body palpable or seen pain is all the way to the palm Neuro: Oriented X 3. No motor deficit. No sensory deficit.No cerebellar signs , cranial nerves II-XII intact Course Course Course Narrative: RME performed by Laney Neely PA-C. Patient is a 34 year old assigned male at presenting to the emergency department with a right middle finger injury. Patient states he has a splinter from working at [employer] and his hand just progressively gotten more swollen. Patient states that he a history of IVDU and MRSA. 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 Labs and imaging ordered. 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 Medications Administered Generic Name Dose Route Start Last Admin Trade Name Freq PRN Reason Stop Dose Admin Vancomycin HCl 1,000 mg/ 270 mls @ 270 mls/hr 10/06/24 00:15 10/06/24 00:19 Sodium Chloride IV 10/06/24 01:14 270 mls/hr ONCE ONE Administration Oxycodone HCl 5 mg 10/05/24 23:35 10/06/24 00:32 Oxycodone Hcl Immed Release 5 Mg Tablet PO 5 mg Q6H PRN Administration Pain, Moderate(Pain Scale 4-6) Sodium Chloride 3 ml 10/06/24 00:00 10/06/24 00:19 0.9 % Sodium Chloride Flush 3 Ml Syringe IVFLUSH 3 ml QSHIFT SHANNEN Administration Discontinued Medications Generic Name Dose Route Start Last Admin Trade Name Freq PRN Reason Stop Dose Admin Hydromorphone HCl 2 mg 10/05/24 20:29 10/05/24 20:46 Hydromorphone Hcl 2 Mg/Ml Vial IVPUSH 10/05/24 20:30 2 mg ONCE ONE Administration Protocol Vancomycin HCl 1,000 mg/ 270 mls @ 270 mls/hr 10/05/24 20:10 10/05/24 22:26 Sodium Chloride IV 10/05/24 21:09 Infused ONCE ONE Infusion Piperacillin Sod/Tazobactam 50 mls @ 100 mls/hr 10/05/24 20:10 10/05/24 21:14 Sod 3.375 gm/ Sodium Chloride IV 10/05/24 20:39 Infused ONCE ONE Infusion Sodium Chloride 1,000 mls @ 999 mls/hr 10/05/24 20:29 10/05/24 21:12 Ns IV 10/05/24 21:29 Infused .Q1H1M ONE Infusion Sodium Chloride 1,000 mls @ 999 mls/hr 10/05/24 21:07 10/05/24 22:34 Ns IV 10/05/24 22:07 Infused .Q1H1M ONE Infusion Ketorolac Tromethamine 30 mg 10/05/24 23:25 10/05/24 23:30 Ketorolac Tromethamine 30 Mg/Ml Vial IVPUSH 10/05/24 23:26 30 mg ONCE ONE Administration Lidocaine HCl 5 ml 10/05/24 23:21 10/05/24 23:31 Lidocaine Hcl 1 % Mpf 5 Ml Vial INFILTRATI 10/05/24 23:22 5 ml ONCE ONE Administration Morphine Sulfate 4 mg 10/05/24 23:25 10/05/24 23:29 Morphine Sulfate 4 Mg/Ml Cartridge IVPUSH 10/05/24 23:26 4 mg ONCE ONE Administration Protocol Ondansetron HCl 4 mg 10/05/24 20:29 10/05/24 20:46 Ondansetron Hcl 4 Mg/2 Ml Vial IVPUSH 10/05/24 20:30 4 mg ONCE ONE Administration Procedures Abscess I/D Site: hand (Third finger) Side (if applicable): right Local Anesthetic: lidocaine 1% Amount of anesthesia used (mL): 5 Technique: needle aspiration Amount of fluid expressed (mL): 0 Medical Decision Making Medical Decision Making [facility] Narrative: Patient with increased swelling of the right middle finger from questionable splinter injury no foreign body seen me patient has a disproportionately increased pain as compared to the injury likely possible tenosynovitis no paresthesia pain is well swelling and pain is spreading to the palm Under finger block needle aspiration was done at 2 places on the palmar aspect of the right middle finger no pus drain no fluid drainage Case discussed with ortho XIOMARA Holcomb will see the patient in am Differential Diagnosis Differential Diagnoses: The differential diagnosis associated with the presentation includes Cellulitis/tenosynovitis Admission/Observation Consideration of admission/observation: Escalation of care including admission/observation considered Consult Healthcare Provider Management of the patient was discussed with: Hospitalist Lab Data [facility] Lab Attestation statement: I reviewed the patient's lab results. 10/05/24 20:06 10/05/24 20:06 Labs: Lab Results 10/05/24 Range/Units 20:06 WBC 24.0 H (4.8-10.8) X10*3/uL RBC 4.99 (4.60-5.80) X10*6/uL Hgb 15.6 (14.0-18.0) g/dl Hct 44.2 (42.0-52.0) % MCV 88.6 (80.0-98.0) fL MCH 31.3 (27.0-33.0) pg MCHC 35.3 (31.0-36.0) g/dl RDW 13.1 (11.0-16.0) % Plt Count 260 D (160-400) X10*3/uL MPV 9.8 (9.4-12.4) fL Immature Gran % (Auto) 0.6 H (0.0-0.4) % Neut % (Auto) 85.7 H (45-73) % Lymph % (Auto) 5.7 L (20-40) % [place] % (Auto) 7.7 (2-11) % Eos % (Auto) 0.0 (0-4) % Baso % (Auto) 0.3 (0-2) % Lymph # (Auto) 1.4 (1.2-4.9) X10*3/uL [place] # (Auto) 1.9 H (0.1-1.2) X10*3/uL Eos # (Auto) 0.0 (0.0-0.4) X10*3/uL Baso # (Auto) 0.1 (0.0-0.2) X10*3/uL Abs Immat Gran (auto) 0.14 H (0.00-0.03) X10*3/uL Absolute Neuts (auto) 20.5 H (2.0-8.3) x10*3/uL Absolute Nucleated RBC 0.000 (0.0-0.012) X10*3/uL Nucleated RBC % (auto) 0.0 (0.0-0.2) /100WBC Smear Tech's Comments VERIFIED ESR 2 (0-15) MM/HR Sodium 135 (135-145) mmol/L Potassium 3.9 (3.3-5.1) mmol/L Chloride 102 (96-108) mmol/L Carbon Dioxide 22 (22-29) mmol/L Anion Gap 15 (12-20) BUN 20 H (9-16) mg/dL Creatinine 1.24 (0.5-1.4) mg/dL Estim Creat Clear Calc 100.7 Estimated GFR > 60 Random Glucose 124 H (60-115) mg/dL Lactic Acid 1.1 (0.5-2.0) mmol/L Calcium 9.4 (8.4-10.2) mg/dL Magnesium 1.8 (1.6-2.6) mg/dL Total Bilirubin 0.5 (0.0-1.0) mg/dL AST 55 H (5-37) U/L ALT 44 H (0-40) U/L Alkaline Phosphatase 82 (39-117) U/L C-Reactive Protein 7.28 H (< or = 0.50) mg/dL Total Protein 7.7 (6.5-8.0) g/dL Albumin 4.4 (3.5-5.0) g/dL Discharge Plan Discharge Clinical Impression: Tenosynovitis of fingers Patient Disposition: Admitted As Inpatient
[2024-10-05] MEDS: 0.9 % Sodium Chloride 1,000 ML 999 ML IV ×2 (20:08→21:13)
--- OUTSIDE RECORDS SUMMARY | 2024-10-05 20:15 | XMS_ITS | Clinical Summary ---
Author Organization [facility] Facility Address [address] [address] Care Team Providers Care Biological Inspector Name Role Phone Nelda Lawson MD Primary Care Provider + [phone] Social History Tobacco Use Types Packs/Day Years Used Date Smoking Tobacco: Never Assessed Sex and Gender Information Value Date Recorded Sex Assigned at Not on file Legal Sex Male 10:25 AM EDT Gender Identity Not on file Sexual Orientation Not on file Plan of Treatment Health Maintenance Due Date Last Done Comments Hepatitis B Vaccine (1 of 3 - 19+ 3-dose series) 2008 Influenza Vaccine (Season Ended) 2025 Pneumococcal Vaccine: Pediat rics (0 to 5 Years) and At-Risk Patients (6 to 64 Years) Aged Out No longer eligi ble based on patient's age to complete this topic [place] [address] [address] [address] [employer] 1,2,3 (VAC[employer]) Care Teams Biological Inspector Relationship Specialty Start Date End Date Nelda Lawson MD [address] [place] [id number] PCP - General Family Medicine 01/23/22
[2024-10-05 20:20] LABS: Basophils Absolute Auto 0.1 X10*3/uL (0.0-0.2); Basophils Percent Auto 0.3 % (0-2); Hematocrit 44.2 % (42.0-52.0); Hemoglobin 15.6 g/dl (14.0-18.0); Imm Gran Abs Auto 0.14 X10*3/uL (0.00-0.03); Imm Gran Pct Auto 0.6 % (0.0-0.4); Lymphocytes Absolute Auto 1.4 X10*3/uL (1.2-4.9); Lymphocytes Percent Auto 5.7 % (20-40); MANUAL DIFF FLAG SCAN; Mean Corpuscular HGB Conc 35.3 g/dl (31.0-36.0); Mean Corpuscular Hemoglobin 31.3 pg (27.0-33.0); Mean Corpuscular Volume 88.6 fL (80.0-98.0); Mean Platelet Volume 9.8 fL (9.4-12.4); Monocytes Absolute Auto 1.9 X10*3/uL (0.1-1.2); Monocytes Percent Auto 7.7 % (2-11); Neutrophils Absolute Auto 20.5 x10*3/uL (2.0-8.3); Neutrophils Percent Auto 85.7 % (45-73); Platelet Count 260 X10*3/uL (160-400); Red Blood Count 4.99 X10*6/uL (4.60-5.80); Red Cell Distribution Width 13.1 % (11.0-16.0); SCAN SMEAR FLAG 1
[2024-10-05] MEDS: Piperacillin Sodium/Tazobactam 3.375 GM in 0.9 % Sodium Chloride 50 ML IV (20:31)
[2024-10-05 20:37] LABS: Lactic Acid 1.1 mmol/L (0.5-2.0)
[2024-10-05 20:41] LABS: Alanine Aminotransferase 44 U/L (0-40); Albumin Level 4.4 g/dL (3.5-5.0); Alkaline Phosphatase 82 U/L (39-117); Anion Gap 15 (12-20); Aspartate Amino Transferase 55 U/L (5-37); Bilirubin Total 0.5 mg/dL (0.0-1.0); Blood Urea Nitrogen 20 mg/dL (9-16); C Reactive Protein 7.28 mg/dL (< or = 0.50); Calcium 9.4 mg/dL (8.4-10.2); Carbon Dioxide 22 mmol/L (22-29); Chloride 102 mmol/L (96-108); Creatinine Clr Calc Pharmacy 100.7; Estimated Glomerular Filt Rate > 60; Glucose Random 124 mg/dL (60-115); Magnesium 1.8 mg/dL (1.6-2.6); Potassium 3.9 mmol/L (3.3-5.1); SLIDE REVIEW VERIFIED; Sodium 135 mmol/L (135-145); Total Protein 7.7 g/dL (6.5-8.0)
[2024-10-05] MEDS: HYDROmorphone HCl 2 MG/ML VIAL IVPUSH (20:46)
[2024-10-05] MEDS: ondansetron HCL 4 MG/2 ML VIAL IVPUSH (20:46)
[2024-10-05] MEDS: vancomycin HCL 1,000 MG in 0.9 % Sodium Chloride 250 ML 270 MG IV (21:15)
[2024-10-05 21:18] LABS: Erythrocyte Sedimentation Rate 2 MM/HR (0-15)
[2024-10-05] MEDS: Morphine Sulfate 4 MG/ML CARTRIDGE IVPUSH (23:29)
[2024-10-05] MEDS: Ketorolac Tromethamine 30 MG/ML VIAL IVPUSH (23:30)
[2024-10-05] MEDS: Lidocaine HCl 1 % MPF 5 ML VIAL INFILTRATI (23:31)
[2024-10-06] VITALS (12 sets, daily range): BP systolic 123–160; BP diastolic 56–76; PULSE 69–85; RESP 14–20; TEMP 36.4–37.1; O2SAT 95–100
[2024-10-06] MEDS: 0.9 % Sodium Chloride Flush 3 ML SYRINGE IVFLUSH ×3 (00:19→18:10)
[2024-10-06] MEDS: vancomycin HCL 1,000 MG in 0.9 % Sodium Chloride 250 ML 270 MG IV (00:19)
[2024-10-06] MEDS: oxyCODONE HCl Immed Release 5 MG TABLET PO ×2 (00:32→11:19)
--- NOTE | 2024-10-06 00:45 | P.HPHOSP_ITS ---
History of Present Illness Date of Service: 10/05/24 Attending physician on admission: Josue Ramos Chief Complaint: right hand pain Patient is a 34-year-old male with a past medical history significant for history IV drug use, MRSA, mood disorder and hepatitis-C, who presented to the ED due to right middle finger swelling, redness and streaking. He reports that he works at [employer] and last night splinting his finger on something, possibly would or fiberglass. Afterwards it felt sore but he continued to work. This morning he woke with severe pain in the right middle finger with redness and streaking down the forearm. He reported 7/10 pain however now is 4/10 after some pain management and numbing. He reports it was draining earlier today, purulent fluid. He has had chills and a fever but denies any nausea or vomiting. Review of Systems 2 Constitutional: Constitutional: Denies body ache(s), Reports chills, Denies fatigue, Reports fever(s) and Denies headache(s) Eyes: Eyes: Denies change in vision and Denies photophobia ENT: Denies headache(s), Denies nasal congestion, Denies nasal discharge and Denies sore throat Cardiovascular: Cardiovascular: Denies chest pain, Denies rapid heart rate, Denies leg edema, Denies lightheadedness and Denies dyspnea Respiratory: Respiratory: Denies chest congestion, Denies cough, Denies dyspnea and Denies wheezing Gastrointestinal: Gastrointestinal: Denies abdominal pain, Denies diarrhea, Denies nausea and Denies vomiting Genitourinary: Genitourinary: Denies dysuria, Denies urinary hesitancy and Denies urinary urgency Musculoskeletal: Musculoskeletal: Reports as per HPI and Reports myalgias Integumentary/Breasts: Skin/Breast: Reports as per HPI Neurologic: Denies confusion and Denies headache(s) Psychiatric: Psychiatric: Denies confusion Endocrine: Endocrine: Denies fatigue Hematologic/Lymphatic: Hematologic/Lymphatic: Denies easy bleeding and Denies easy bruising Allergic/Immunologic: Allergic/Immunologic: Denies wheezing PMFSH Medical History Hepatitis C IVDU (intravenous drug user) PTSD (post-traumatic stress disorder) Anxiety Anxiety Functional capacity: independent ambulation Social History Alcohol intake: current Patient Tobacco Use Status: Former Tobacco user Use of substances other than those prescribed or required for medical reasons: Yes Substance Use Type: Heroin Substance Use Frequency: Chronic Longstanding Substance Use Frequency Other:: Patient states not using at this time Last Used Substance: Unknown Advance Directives: No Advance Directives Information Provided: Yes Do you have a plan to hurt others: No Plan Nutrition Risks: No Nutritional Risk Current occupational status: student Narrative: No smoking or alcohol. On methadone, rare additional IV drug use, last used about 1 month ago. Meds Allergies Allergy/AdvReac Type Severity Reaction Status Date / Time No Known Allergies Allergy Unknown UNKNOWN Verified 10/05/24 19:55 [NO KNOWN ALLERGIES] Active Medications: Current Medications Acetaminophen (Acetaminophen 325 Mg Tablet) 975 mg PO Q6H PRN PRN Reason: Pain, Mild 1-3,fever,headache Calcium Carbonate (Calcium Carbonate 750 Mg Tab.Chew) 750 mg PO Q4H PRN PRN Reason: Heartburn Piperacillin Sod/Tazobactam (Sod 3.375 gm/ Sodium Chloride) 50 mls @ 100 mls/hr IV Q6H SHANNEN Vancomycin HCl 1,000 mg/ (Sodium Chloride) 270 mls @ 270 mls/hr IV ONCE ONE Stop: 10/06/24 01:14 Last Admin: 10/06/24 00:19 Dose: 270 mls/hr Magnesium Hydroxide (Milk Of Magnesia 30 Ml Oral.Susp) 30 ml PO DAILY PRN PRN Reason: Constipation Melatonin (Melatonin 3 Mg Tablet) 6 mg PO BEDTIME PRN PRN Reason: Insomnia Morphine Sulfate (Morphine Sulfate 4 Mg/Ml Cartridge) 2 mg IVPUSH Q4H PRN; Protocol PRN Reason: Pain, Severe (Pain Scale 7-10) Ondansetron HCl (Ondansetron Hcl 4 Mg/2 Ml Vial) 4 mg IVPUSH Q8H PRN PRN Reason: Nausea and Vomiting Oxycodone HCl (Oxycodone Hcl Immed Release 5 Mg Tablet) 5 mg PO Q6H PRN PRN Reason: Pain, Moderate(Pain Scale 4-6) Last Admin: 10/06/24 00:32 Dose: 5 mg Pharmacy Consult (Consult Rx Vancomycin Dosing) 1 each MISCELLANE DAILY PRN PRN Reason: Consult order Sodium Chloride (0.9 % Sodium Chloride Flush 3 Ml Syringe) 3 ml IVFLUSH QSHIFT SHANNEN Last Admin: 10/06/24 00:19 Dose: 3 ml Home Medications ?Medication ?Instructions ?Recorded ?Confirmed ?Last Taken ?Type dextroamphetamine-amphetamine 20 40 mg PO DAILY 10/26/23 10/26/23 Unknown History mg tablet (Adderall) Physical Exam 2 Vital Signs and Narrative: Vital Signs: Last Vital Signs Temp 98.4 F 10/06/24 00:00 Pulse 85 10/06/24 00:00 Resp 20 10/06/24 00:00 BP 150/68 H 10/06/24 00:00 Pulse Ox 100 10/06/24 00:00 O2 Del Method Room Air 10/06/24 00:00 BMI result Body Mass Index 29.2 General: AOx3, no acute distress Resp: CTA bilaterally CVS: RRR +murmur GI: +BS, NT, no distention Skin: Warm, dry. erythema and edema right middle finger with streaking down the forearm Neuro: Cranial nerves II-XII grossly intact bilaterally. Motor grossly intact bilaterally Extremities: No LE edema Psych: Appropriate affect Const: General: No confusion Orientation/consciousness: No confusion Eyes: Direct Ophthalmoscopy: No photophobia Neuro: General: No confusion Results Labs 10/05/24 20:06 10/05/24 20:06 Labs: Laboratory Results - last 24 hr 10/05/24 20:06 MCV 88.6 MCH 31.3 MCHC 35.3 RDW 13.1 Plt Count 260 D MPV 9.8 Immature Gran % (Auto) 0.6 H Neut % (Auto) 85.7 H Lymph % (Auto) 5.7 L [place] % (Auto) 7.7 Eos % (Auto) 0.0 Baso % (Auto) 0.3 Lymph # (Auto) 1.4 [place] # (Auto) 1.9 H Eos # (Auto) 0.0 Baso # (Auto) 0.1 Abs Immat Gran (auto) 0.14 H Absolute Neuts (auto) 20.5 H Absolute Nucleated RBC 0.000 Nucleated RBC % (auto) 0.0 Smear Tech's Comments VERIFIED ESR 2 Anion Gap 15 Estim Creat Clear Calc 100.7 Estimated GFR > 60 Random Glucose 124 H Lactic Acid 1.1 Calcium 9.4 Magnesium 1.8 Total Bilirubin 0.5 AST 55 H ALT 44 H Alkaline Phosphatase 82 C-Reactive Protein 7.28 H Total Protein 7.7 Albumin 4.4 Assessment and Plan (1) Sepsis: Status: Acute (2) Flexor tenosynovitis of finger: Status: Acute (3) Elevated LFTs: Status: Acute Plan Patient is a 34-year-old male with a past medical history significant for history IV drug use, MRSA, mood disorder and hepatitis-C, who presented to the ED due to right middle finger swelling, redness and streaking. Sepsis secondary to flexor tenosynovitis right middle finger - WBC 24.0, fever 101.1, tachycardic, lactic acid normal, blood cultures x2 pending, not severe sepsis - CRP elevated at 7.28 - started on vancomycin and Zosyn in ED, continue - given 2 L NS in ED - ortho and ID consults - NPO - monitor CBC and BMP elevated LFTs - secondary to hepatitis C - continue outpatient follow-up mood disorder - continue home meds Substance use disorder - followed outpatient, on methadone full code VTE prophylaxis: pneumoboots pending possible surgery tomorrow patient with sepsis secondary to flexor tenosynovitis right middle finger, requiring admission for at least 2 midnights stay for IV antibiotics, ortho consultation and possible surgery. Quality Stroke Does the patient have a stroke diagnosis?: No VTE Prior VTE?: No VTE Risk Level:: Medical - moderate - high VTE Device Contraindication: N/A - Device Ordered VTE Drug Contraindication: Treatment Not Indicated
[2024-10-06] MEDS: Piperacillin Sodium/Tazobactam 3.375 GM in 0.9 % Sodium Chloride 50 ML IV ×3 (02:03→19:21)
[2024-10-06] MEDS: Morphine Sulfate 4 MG/ML CARTRIDGE 2 MG IVPUSH ×3 (04:24→18:07)
[2024-10-06] MEDS: clonazePAM 0.5 MG TABLET PO (05:06)
[2024-10-06] MEDS: Acetaminophen 325 MG TABLET 975 MG PO (05:06)
--- NOTE | 2024-10-06 05:08 | PC.NURSE ---
pt medicated per MAR for anxiety, pain and low grade fever 99.9, c/o fever and chills.
[2024-10-06 05:27] LABS: Anion Gap 10 (12-20); Blood Urea Nitrogen 16 mg/dL (9-16); Calcium 8.2 mg/dL (8.4-10.2); Carbon Dioxide 24 mmol/L (22-29); Chloride 104 mmol/L (96-108); Creatinine Clr Calc Pharmacy 130.1; Estimated Glomerular Filt Rate > 60; Glucose Random 97 mg/dL (60-115); Potassium 3.8 mmol/L (3.3-5.1); Sodium 134 mmol/L (135-145)
[2024-10-06 05:45] LABS: Basophils Absolute Auto 0.1 X10*3/uL (0.0-0.2); Basophils Percent Auto 0.3 % (0-2); Eosinophils Absolute Auto 0.1 X10*3/uL (0.0-0.4); Eosinophils Percent Auto 0.6 % (0-4); Hematocrit 39.7 % (42.0-52.0); Hemoglobin 13.8 g/dl (14.0-18.0); Imm Gran Abs Auto 0.08 X10*3/uL (0.00-0.03); Imm Gran Pct Auto 0.4 % (0.0-0.4); Lymphocytes Absolute Auto 2.4 X10*3/uL (1.2-4.9); Lymphocytes Percent Auto 11.8 % (20-40); Mean Corpuscular HGB Conc 34.8 g/dl (31.0-36.0); Mean Corpuscular Hemoglobin 31.4 pg (27.0-33.0); Mean Corpuscular Volume 90.2 fL (80.0-98.0); Mean Platelet Volume 9.6 fL (9.4-12.4); Monocytes Absolute Auto 2.1 X10*3/uL (0.1-1.2); Monocytes Percent Auto 10.1 % (2-11); Neutrophils Absolute Auto 15.8 x10*3/uL (2.0-8.3); Neutrophils Percent Auto 76.8 % (45-73); Platelet Count 214 X10*3/uL (160-400); Red Cell Distribution Width 13.2 % (11.0-16.0); SCAN SMEAR FLAG 1; White Blood Count 20.6 X10*3/uL (4.8-10.8)
[2024-10-06 05:47] LABS: MANUAL DIFF FLAG SCAN
[2024-10-06 06:06] LABS: SLIDE REVIEW VERIFIED
--- NOTE | 2024-10-06 06:59 | PHA.PROG ---
Admission Date/Time: October 05, 2024 23:35 Indication: skin Weight in k.8 kg Adjusted body weight in K.68 [place] body weight in K.6 Obesity Dosing Indication % IBW: 29.2 Serum Creatinine - Last 168 Hours 10/05/24 10/06/24 20:06 05:00 Creatinine 1.24 0.96 Estimated CrCl and GFR - Last 168 Hours 10/05/24 10/06/24 20:06 05:00 Estim Creat Clear Calc 100.7 130.1 Estimated GFR > 60 > 60 Vancomycin Loading Dose: 2000 mg Current Vancomycin Dosing Regimen: 1500 q12 Vancomycin Monitoring using AUC goal of 400 - 600 range with trough as surrogate marker 560/17.1: Date and Time for next Vancomycin Level to be drawn: 10/07 @0900 Pharmacist Comments on Vancomycin Plan: load given as 2 1 gram doses in ED on 10/05 and 10/06 Vancomycin dosing will take advantage of [employer] as a clinical decision support tool that uses Bayesian modeling to calculate individual patient's pharmacokinetic parameters and forecast the patient's drug concentration time course with the target goal AUC 24 range of 400 - 600 mg/L/hr.
--- NOTE | 2024-10-06 08:41 | PHA.MEDREC ---
Pharmacy Consult ? Medication Reconciliation Pharmacy has completed the medication reconciliation. Patient knew medications. Adderall matched claim history. Patient said Clonazepam 1mg bid prn but not shown on claim history but patient was sure of it so added to list. Patient also takes methadone 150mg daily
--- NOTE | 2024-10-06 08:48 | PM.CNOR ---
History of Present Illness HPI Consult date: 10/06/24 Chief complaint: Sepsis, flexor tenosynovitis Narrative: 34-year-old male with a past medical history significant for history IV drug use, MRSA, mood disorder and hepatitis-C, who presented to the ED due to right middle finger swelling, redness and streaking. He reports that he works at [employer] and 2 nights ago he developed pain and swelling in the finger possibly wood or fiberglass. Afterwards it felt sore but he continued to work. T his pain worsen in the right middle finger with redness and streaking down the forearm which prompted him to be seen in the emergency department. He denies active drug use. States he is on methadone. Patient appears to be having withdrawals at the time of interview. Review of Systems Review of Systems: Yes all other systems are reviewed and are negative PMFSH Past Medical History Medical History Hepatitis C IVDU (intravenous drug user) PTSD (post-traumatic stress disorder) Anxiety Anxiety Social History Social History Household Members: Significant Other Housing: House Do you presently have visiting nurse or other home services: No Alcohol intake: current Patient Tobacco Use Status: Current everyday Tobacco user Smoked in Last 30 Days: Yes e-Cigarette/Vaping Use: Currently Using Frequency of e-Cigarette/Vaping Use: Daily Patient Interested in Nicotine Replacement: No Use of substances other than those prescribed or required for medical reasons: Yes Substance Use Type: Marijuana Substance Use Frequency: Daily Substance Use Frequency Other:: Patient states not using at this time Last Used Substance: Unknown Currently Displaying Signs/Symptoms of Drug Intoxication Withdrawal: No Any prior treatment program specific to substance use: No Have you been hit, kicked, punched, or otherwise hurt by someone within the past year? If so, by whom?: No Do you feel safe in your current relationship?: Yes Is there a partner from a previous relationship who is making you feel unsafe now?: No Are you made to feel afraid or neglected: No Advance Directives: No Advance Directives Information Provided: Yes Do you have a plan to hurt others: No Plan Recently lost weight without trying: No Eating poorly because of decreased appetite: No Nutrition Risks: No Nutritional Risk Poor oral hygiene: No Current occupational status: student [employer] Allergies Allergy/AdvReac Type Severity Reaction Status Date / Time No Known Allergies Allergy Unknown UNKNOWN Verified 10/05/24 19:55 [NO KNOWN ALLERGIES] Active Medications: Current Medications Acetaminophen (Acetaminophen 325 Mg Tablet) 975 mg PO Q6H PRN PRN Reason: Pain, Mild 1-3,fever,headache Last Admin: 10/06/24 05:06 Dose: 975 mg Calcium Carbonate (Calcium Carbonate 750 Mg Tab.Chew) 750 mg PO Q4H PRN PRN Reason: Heartburn Piperacillin Sod/Tazobactam (Sod 3.375 gm/ Sodium Chloride) 50 mls @ 100 mls/hr IV Q6H [facility] Last Infusion: 10/06/24 08:05 Dose: Infused Vancomycin HCl 1,500 mg/ (Sodium Chloride) 500 mls @ 333.333 mls/hr IV Q12H [facility] Magnesium Hydroxide (Milk Of Magnesia 30 Ml Oral.Susp) 30 ml PO DAILY PRN PRN Reason: Constipation Melatonin (Melatonin 3 Mg Tablet) 6 mg PO BEDTIME PRN PRN Reason: Insomnia Morphine Sulfate (Morphine Sulfate 4 Mg/Ml Cartridge) 2 mg IVPUSH Q4H PRN; Protocol PRN Reason: Pain, Severe (Pain Scale 7-10) Last Admin: 10/06/24 08:34 Dose: 2 mg Ondansetron HCl (Ondansetron Hcl 4 Mg/2 Ml Vial) 4 mg IVPUSH Q8H PRN PRN Reason: Nausea and Vomiting Oxycodone HCl (Oxycodone Hcl Immed Release 5 Mg Tablet) 5 mg PO Q6H PRN PRN Reason: Pain, Moderate(Pain Scale 4-6) Last Admin: 10/06/24 00:32 Dose: 5 mg Pharmacy Consult (Consult Rx Vancomycin Dosing) 1 each MISCELLANE DAILY PRN PRN Reason: Consult order Sodium Chloride (0.9 % Sodium Chloride Flush 3 Ml Syringe) 3 ml IVFLUSH [facility] Last Admin: 10/06/24 07:21 Dose: 3 ml Home Medications ?Medication ?Instructions ?Recorded ?Confirmed ?Last Taken ?Type dextroamphetamine-amphetamine 20 40 mg PO DAILY 10/26/23 10/06/24 10/04/24 History mg tablet (Adderall) clonazepam 1 mg tablet 1 mg PO BID PRN Anxiety 10/06/24 10/06/24 10/04/24 History methadone 10 mg/mL oral concentrate 150 mg PO DAILY 10/06/24 10/04/24 History Physical Exam Vital Signs: Vital Signs: Last Vital Signs Temp 98.1 F 10/06/24 08:00 Pulse 77 10/06/24 08:00 Resp 18 10/06/24 08:00 BP 141/72 H 10/06/24 08:00 Pulse Ox 99 10/06/24 08:00 O2 Del Method Room Air 10/06/24 08:00 BMI result Body Mass Index 29.2 Const: General: cooperative and no acute distress Orientation/consciousness: patient oriented x3 Resp: Effort & Inspection: normal respiratory effort and able to speak in complete sentences Cardio: Peripheral pulses: Peripheral pulses 2+ throughout Neuro: General: patient oriented x3 Extrem: Other: Right index finger significantly swollen and tender to palpation along the flexor tendon into the deep spaces of the palm. No open wounds or active drainage. He has significant pain with passive extension. Difficulty with flexion. Sensation intact capillary refill brisk. Results Labs 10/06/24 05:41 10/06/24 05:00 Labs: Abnormal lab results 10/05/24 10/06/24 10/06/24 Range/Units 20:06 05:00 05:41 WBC 24.0 H 20.6 H (4.8-10.8) X10*3/uL RBC 4.40 L (4.60-5.80) X10*6/uL Hgb 13.8 L (14.0-18.0) g/dl Hct 39.7 L (42.0-52.0) % Immature Gran % (Auto) 0.6 H (0.0-0.4) % Neut % (Auto) 85.7 H 76.8 H (45-73) % Lymph % (Auto) 5.7 L 11.8 L (20-40) % [place] # (Auto) 1.9 H 2.1 H (0.1-1.2) X10*3/uL Abs Immat Gran (auto) 0.14 H 0.08 H (0.00-0.03) X10*3/uL Absolute Neuts (auto) 20.5 H 15.8 H (2.0-8.3) x10*3/uL Sodium 134 L (135-145) mmol/L Anion Gap 10 L (12-20) BUN 20 H (9-16) mg/dL Random Glucose 124 H (60-115) mg/dL Calcium 8.2 L D (8.4-10.2) mg/dL AST 55 H (5-37) U/L ALT 44 H (0-40) U/L C-Reactive Protein 7.28 H (< or = 0.50) mg/dL H & H 10/05/24 10/06/24 Range/Units 20:06 05:41 Hgb 15.6 13.8 L (14.0-18.0) g/dl Hct 44.2 39.7 L (42.0-52.0) % All other labs normal. Diagnostic results Wrist/Hand x-ray: image reviewed (IMPRESSION: 1. No acute osseous injury. No significant degenerative disease.) Assessment and Plan (1) Flexor tenosynovitis of finger: Status: Acute Plan I discussed with the patient the extent of his condition. I explained he may have active infection in the flexor tendon region of the finger which could possibly extend into the palmar aspect of the hand. At this time we will continue to keep him NPO in the setting he may benefit from incision and drainage of the right index finger with Dr. Velez. I discussed with him the risks benefits and alternatives to this procedure. Risks including but not limited to ongoing infection, pain, stiffness, injury to surrounding nerves and tissues. The patient is content with this plan and will proceed accordingly pending evaluation by Dr. Velez. Procedures Date of Service Date of Service: 10/06/24
--- NOTE | 2024-10-06 09:44 | MHC.CM.PN ---
Patient sustained a hand injury at work. He reports that he was able to remove a splinter. The next day ss of infection developed. He lives with his S.O. He is independent with all functional mobility. Pt is prescribed methadone. His community clinic is [facility]. DP will be dependent on the need for IV ABX. SNF for IV ABX vs Home self care. His S.O. will provide transportation home. Blood cultures are pending.
--- NOTE | 2024-10-06 10:41 | HE.PHANOTE ---
re methadone dosing: doses of 150 mg given as take home dosing from [facility] (14 doses given on 09/26/24). last dose taken 10/04/24 per pt.
--- NOTE | 2024-10-06 11:19 | HO.PM.IMPN ---
Subjective Subjective Date of Service: 10/06/24 Interval History: Complaining of severe right middle finger pain with radiation to forearm, complaining of headache, denies fever, denies shakiness, no tremors, no nausea, no vomiting. Review of Systems All other system reviewed and are negative Physical Exam Vital Signs: Vital Signs: Last Vital Signs Temp 98.1 F 10/06/24 08:00 Pulse 77 10/06/24 08:00 Resp 18 10/06/24 08:00 BP 141/72 H 10/06/24 08:00 Pulse Ox 99 10/06/24 08:00 O2 Del Method Room Air 10/06/24 08:00 BMI result Body Mass Index 29.2 Const: Other: General: AOx3, no acute distress Resp: CTA bilaterally CVS: RRR GI: Soft, nontender bowel sounds audible Skin: Warm, dry. right middle finger swollen, tender to palpation, no foreign body noted , two small puncture wounds with no drainage with streaking extending towards axilla, significant tenderness with flexion and extension Neuro: Non focal Extremities: No LE edema Psych: Appropriate affect Objective Data Active Medications Acetaminophen (Acetaminophen 325 Mg Tablet) 975 mg PO Q6H PRN PRN Reason: Pain, Mild 1-3,fever,headache Last Admin: 10/06/24 05:06 Dose: 975 mg Documented By: FANNIE Amphetamine/Dextroamphetamine (Amphetamine Mixed Salts 20 Mg Tablet) 40 mg PO DAILY SHANNEN Calcium Carbonate (Calcium Carbonate 750 Mg Tab.Chew) 750 mg PO Q4H PRN PRN Reason: Heartburn Clonazepam (Clonazepam 1 Mg Tablet) 1 mg PO BID PRN PRN Reason: Anxiety Piperacillin Sod/Tazobactam (Sod 3.375 gm/ Sodium Chloride) 50 mls @ 100 mls/hr IV Q6H SHANNEN Last Infusion: 10/06/24 08:05 Dose: Infused Documented By: NOHEMY Vancomycin HCl 1,500 mg/ (Sodium Chloride) 500 mls @ 333.333 mls/hr IV Q12H [facility] Magnesium Hydroxide (Milk Of Magnesia 30 Ml Oral.Susp) 30 ml PO DAILY PRN PRN Reason: Constipation Melatonin (Melatonin 3 Mg Tablet) 6 mg PO BEDTIME PRN PRN Reason: Insomnia Methadone HCl (Methadone Hcl 20 Mg/2 Ml Oral.Conc) 150 mg PO DAILY SHANNEN Morphine Sulfate (Morphine Sulfate 4 Mg/Ml Cartridge) 2 mg IVPUSH Q4H PRN; Protocol PRN Reason: Pain, Severe (Pain Scale 7-10) Last Admin: 10/06/24 08:34 Dose: 2 mg Documented By: STERLING Ondansetron HCl (Ondansetron Hcl 4 Mg/2 Ml Vial) 4 mg IVPUSH Q8H PRN PRN Reason: Nausea and Vomiting Oxycodone HCl (Oxycodone Hcl Immed Release 5 Mg Tablet) 5 mg PO Q6H PRN PRN Reason: Pain, Moderate(Pain Scale 4-6) Last Admin: 10/06/24 00:32 Dose: 5 mg Documented By: FANNIE Pharmacy Consult (Consult Rx Vancomycin Dosing) 1 each MISCELLANE DAILY PRN PRN Reason: Consult order Sodium Chloride (0.9 % Sodium Chloride Flush 3 Ml Syringe) 3 ml IVFLUSH QSHIFT [facility] Last Admin: 10/06/24 07:21 Dose: 3 ml Documented By: KENDELL Labs 10/06/24 05:41 10/06/24 05:00 Labs: Laboratory Results - last 24 hr 10/05/24 10/06/24 10/06/24 20:06 05:00 05:41 MCV 88.6 90.2 MCH 31.3 31.4 MCHC 35.3 34.8 RDW 13.1 13.2 Plt Count 260 D 214 MPV 9.8 9.6 Immature Gran % (Auto) 0.6 H 0.4 Neut % (Auto) 85.7 H 76.8 H Lymph % (Auto) 5.7 L 11.8 L [place] % (Auto) 7.7 10.1 Eos % (Auto) 0.0 0.6 Baso % (Auto) 0.3 0.3 Lymph # (Auto) 1.4 2.4 [place] # (Auto) 1.9 H 2.1 H Eos # (Auto) 0.0 0.1 Baso # (Auto) 0.1 0.1 Abs Immat Gran (auto) 0.14 H 0.08 H Absolute Neuts (auto) 20.5 H 15.8 H Absolute Nucleated RBC 0.000 0.000 Nucleated RBC % (auto) 0.0 0.0 Smear Tech's Comments VERIFIED VERIFIED ESR 2 Anion Gap 15 10 L Estim Creat Clear Calc 100.7 130.1 Estimated GFR > 60 > 60 Random Glucose 124 H 97 Lactic Acid 1.1 Calcium 9.4 8.2 L D Magnesium 1.8 Total Bilirubin 0.5 AST 55 H ALT 44 H Alkaline Phosphatase 82 C-Reactive Protein 7.28 H Total Protein 7.7 Albumin 4.4 Assessment and Plan (1) Elevated LFTs: Status: Acute (2) Flexor tenosynovitis of finger: Status: Acute (3) Sepsis: Status: Acute Plan 34-year-old male with a past medical history significant for history IV drug use, MRSA, mood disorder and hepatitis-C, who presented to the ED due to right middle finger swelling, redness and streaking. Sepsis secondary to flexor tenosynovitis right middle finger - WBC 24.0, fever 101.1, tachycardic, lactic acid normal, blood cultures x2 pending, not severe sepsis - CRP elevated at 7.28 - WBC trending down, no recurrent fevers - on iv vancomycin and Zosyn started for 6th Seen by ortho, kept NPO - monitor CBC, blood culture and BMP - add IV Toradol, IV Dilaudid and adjust dose of oxycodone for pain control elevated LFTs - secondary to hepatitis C, no abdominal pain - continue outpatient follow-up mood disorder - continue home meds Substance use disorder - resume methadone, check U tox full code VTE prophylaxis: pneumoboots patient with sepsis secondary to flexor tenosynovitis right middle finger, requiring continued inpatient hospitalization for IV antibiotics, and expert consultation Quality Stroke Does the patient have a stroke diagnosis?: No VTE Prior VTE?: No VTE Risk Level:: Medical - moderate - high VTE Device Contraindication: N/A - Device Ordered VTE Drug Contraindication: Treatment Not Indicated
[2024-10-06] MEDS: methADONE HCl 20 MG/2 ML ORAL.CONC 150 MG PO (11:20)
[2024-10-06] MEDS: vancomycin HCL 1,500 MG in 0.9 % Sodium Chloride 500 ML 333.33 MG IV ×2 (11:23→22:39)
[2024-10-06] MEDS: Amphetamine Mixed Salts 20 MG TABLET 40 MG PO (11:24)
--- NOTE | 2024-10-06 11:59 | PM.CNOR ---
History of Present Illness HPI Consult date: 10/06/24 Chief complaint: Sepsis, flexor tenosynovitis Narrative: Patient is a 34-year-old man with an IV drug use history. He works at [employer] and thinks he might have gotten a splinter into his right middle finger. He began to have pain only about 2 days ago with rapid worsening of pain swelling and redness. He was seen last night in the emergency department and admitted to the hospitalist service on IV antibiotics. FORMERLY [facility], [facility] Past Medical History Medical History Hepatitis C IVDU (intravenous drug user) PTSD (post-traumatic stress disorder) Anxiety Anxiety Social History Social History Household Members: Significant Other Housing: House Do you presently have visiting nurse or other home services: No Alcohol intake: current Patient Tobacco Use Status: Current everyday Tobacco user Smoked in Last 30 Days: Yes e-Cigarette/Vaping Use: Currently Using Frequency of e-Cigarette/Vaping Use: Daily Patient Interested in Nicotine Replacement: No Use of substances other than those prescribed or required for medical reasons: Yes Substance Use Type: Marijuana Substance Use Frequency: Daily Substance Use Frequency Other:: Patient states not using at this time Last Used Substance: Unknown Currently Displaying Signs/Symptoms of Drug Intoxication Withdrawal: No Any prior treatment program specific to substance use: No Have you been hit, kicked, punched, or otherwise hurt by someone within the past year? If so, by whom?: No Do you feel safe in your current relationship?: Yes Is there a partner from a previous relationship who is making you feel unsafe now?: No Are you made to feel afraid or neglected: No Advance Directives: No Advance Directives Information Provided: Yes Do you have a plan to hurt others: No Plan Recently lost weight without trying: No Eating poorly because of decreased appetite: No Nutrition Risks: No Nutritional Risk Poor oral hygiene: No Current occupational status: student Meds Allergies Allergy/AdvReac Type Severity Reaction Status Date / Time No Known Allergies Allergy Unknown UNKNOWN Verified 10/05/24 19:55 [NO KNOWN ALLERGIES] Active Medications: Current Medications Acetaminophen (Acetaminophen 325 Mg Tablet) 975 mg PO Q6H PRN PRN Reason: Pain, Mild 1-3,fever,headache Last Admin: 10/06/24 05:06 Dose: 975 mg Amphetamine/Dextroamphetamine (Amphetamine Mixed Salts 20 Mg Tablet) 40 mg PO DAILY [facility] Last Admin: 10/06/24 11:24 Dose: 40 mg Calcium Carbonate (Calcium Carbonate 750 Mg Tab.Chew) 750 mg PO Q4H PRN PRN Reason: Heartburn Clonazepam (Clonazepam 1 Mg Tablet) 1 mg PO BID PRN PRN Reason: Anxiety Hydromorphone HCl (Hydromorphone Hcl 0.5 Mg/0.5 Ml Syringe) 0.5 mg IVPUSH Q4H PRN; Protocol PRN Reason: Pain, Severe (Pain Scale 7-10) Piperacillin Sod/Tazobactam (Sod 3.375 gm/ Sodium Chloride) 50 mls @ 100 mls/hr IV Q6H [facility] Last Infusion: 10/06/24 08:05 Dose: Infused Vancomycin HCl 1,500 mg/ (Sodium Chloride) 500 mls @ 333.333 mls/hr IV Q12H [facility] Last Admin: 10/06/24 11:23 Dose: 333.33 mls/hr Ketorolac Tromethamine (Ketorolac Tromethamine 15 Mg/Ml Vial) 15 mg IVPUSH Q6H [facility] Magnesium Hydroxide (Milk Of Magnesia 30 Ml Oral.Susp) 30 ml PO DAILY PRN PRN Reason: Constipation Melatonin (Melatonin 3 Mg Tablet) 6 mg PO BEDTIME PRN PRN Reason: Insomnia Methadone HCl (Methadone Hcl 20 Mg/2 Ml Oral.Conc) 150 mg PO DAILY [facility] Last Admin: 10/06/24 11:20 Dose: 150 mg Morphine Sulfate (Morphine Sulfate 4 Mg/Ml Cartridge) 2 mg IVPUSH Q4H PRN; Protocol PRN Reason: Pain, Severe (Pain Scale 7-10) Last Admin: 10/06/24 08:34 Dose: 2 mg Ondansetron HCl (Ondansetron Hcl 4 Mg/2 Ml Vial) 4 mg IVPUSH Q8H PRN PRN Reason: Nausea and Vomiting Oxycodone HCl (Oxycodone Hcl Immed Release 5 Mg Tablet) 5 mg PO Q4H PRN PRN Reason: Pain, Moderate(Pain Scale 4-6) Pharmacy Consult (Consult Rx Vancomycin Dosing) 1 each MISCELLANE DAILY PRN PRN Reason: Consult order Sodium Chloride (0.9 % Sodium Chloride Flush 3 Ml Syringe) 3 ml IVFLUSH QSHIFT [facility] Last Admin: 10/06/24 07:21 Dose: 3 ml Home Medications ?Medication ?Instructions ?Recorded ?Confirmed ?Last Taken ?Type dextroamphetamine-amphetamine 20 40 mg PO DAILY 10/26/23 10/06/24 10/04/24 History mg tablet (Adderall) clonazepam 1 mg tablet 1 mg PO BID PRN Anxiety 10/06/24 10/06/24 10/04/24 History methadone 10 mg/mL oral concentrate 150 mg PO DAILY 10/06/24 10/06/24 10/04/24 History Physical Exam Vital Signs: Vital Signs: Last Vital Signs Temp 98.1 F 10/06/24 08:00 Pulse 77 10/06/24 08:00 Resp 18 10/06/24 08:00 BP 141/72 H 10/06/24 08:00 Pulse Ox 99 10/06/24 08:00 O2 Del Method Room Air 10/06/24 08:00 BMI result Body Mass Index 29.2 Extrem: Other: The patient was alert oriented and in no acute distress, though he is visibly uncomfortable. He has swelling particularly of the right middle finger and it is held in a slightly flexed position. Significant pain with any attempted passive extension. He is most tender to palpation over the flexor side of the right middle finger from about the D IP joint to just proximal to the A1 trinity. He is better able to actively flex and extend the index ring and small fingers, and they can be brought into passive extension without evidence of discomfort. No tenderness about the thumb or more proximally in the palm. Cap refill brisk Results Labs 10/06/24 05:41 10/06/24 05:00 Labs: Abnormal lab results 10/05/24 10/06/24 10/06/24 Range/Units 20:06 05:00 05:41 WBC 24.0 H 20.6 H (4.8-10.8) X10*3/uL RBC 4.40 L (4.60-5.80) X10*6/uL Hgb 13.8 L (14.0-18.0) g/dl Hct 39.7 L (42.0-52.0) % Immature Gran % (Auto) 0.6 H (0.0-0.4) % Neut % (Auto) 85.7 H 76.8 H (45-73) % Lymph % (Auto) 5.7 L 11.8 L (20-40) % Sharp # (Auto) 1.9 H 2.1 H (0.1-1.2) X10*3/uL Abs Immat Gran (auto) 0.14 H 0.08 H (0.00-0.03) X10*3/uL Absolute Neuts (auto) 20.5 H 15.8 H (2.0-8.3) x10*3/uL Sodium 134 L (135-145) mmol/L Anion Gap 10 L (12-20) BUN 20 H (9-16) mg/dL Random Glucose 124 H (60-115) mg/dL Calcium 8.2 L D (8.4-10.2) mg/dL AST 55 H (5-37) U/L ALT 44 H (0-40) U/L C-Reactive Protein 7.28 H (< or = 0.50) mg/dL H & H 10/05/24 10/06/24 Range/Units 20:06 05:41 Hgb 15.6 13.8 L (14.0-18.0) g/dl Hct 44.2 39.7 L (42.0-52.0) % All other labs normal. Assessment and Plan (1) Flexor tenosynovitis of finger: Status: Acute Plan Assessment and plan: 1. Right middle finger flexor tenosynovitis Onset about 2 days ago Possible puncture wound with the wooden splinter. I educated the patient about this condition and we discussed operative and non operative treatment options. I am recommending surgery The risks and benefits of operative treatment were discussed with the patient and the patient wishes to proceed with surgery. These risks include, but are not limited to risk of damage to blood vessels, nerves, tendons, infection, recurrence, incomplete relief of preoperative symptoms, persistent pain, possible need for further surgery and the risks associated with regional blocks and anesthesia. The plan is to take the patient to the operating room today for the following procedures: 1. Right middle finger and hand I&D All of the preoperative paperwork including the consent was filled out today. All the patient's questions were answered. After surgery he will then be treated with IV antibiotics on the floor until we see some improvement in symptoms. Procedures Date of Service Date of Service: 10/06/24
--- NOTE | 2024-10-06 12:04 | W.PM.OPN ---
Operative Note Operative Note Date of Service: 10/06/24 Narrative: Operative Note Narrative: Preop diagnosis: Right middle finger flexor tenosynovitis Postop diagnosis: Same Procedure: 1. Right middle finger I and D of flexor tendon sheath Surgeon: Nadira Velez MD Director Construction Services: None Anesthesia: General Anesthesia Findings: Creamy yellow purulence found over the volar aspect of the middle finger just distal to the A2 trinity. And within the flexor tendon sheath. Minimal purulence found over the A1 trinity and proximal to the A4 trinity. Implants: Tourniquet time: 32 minutes EBL: 5.0 ml Specimen: Cultures times 3 Drains: None Complications: None Disposition: Brought to the recovery room in stable condition Plan: Admit back to floor for IV antibiotics Wound checkand dressing change tomorrow. Daily dressing changes after that Consider OT to work on range of motion exercises in 2-3 days if some improvement in symptoms Adjust antibiotics based on culture results. Follow-up in less than a week after discharge for wound check, suture removal and to check cultures Indications: The patient is a 34 year old man with right middle finger flexor tenosynovitis . The risks and benefits of operative treatment, including but not limited to risk of damage to blood vessels, nerves, tendons, infection, recurrence, persistent pain or numbness, incomplete resolution of preoperative symptoms, or need for further surgery were discussed with the patient and they wished to proceed with surgery. Procedure: Once consent was obtained patient was brought back to the operating suite and placed in the operating table in a supine position. . Perioperative antibiotics and anesthesia was administered by the anesthesia team. A tourniquet was applied to the proximal aspect of the right upper extremity and the limb was prepped and draped in a standard surgical fashion. The limb was elevated exsanguinated with Esmarch bandage and the tourniquet inflated to 250 mm of mercury for a total tourniquet time of 32 minutes. A 2 cm oblique incision was made over the right middle finger A1 trinity. I then dissected down to the level of the A1 trinity using tenotomy scissors. I made a longitudinal incision in the A1 trinity 1st using a 15. Blade and then using tenotomy and iris scissors under direct visualization. There was significant swelling in this area with only minimal obvious purulence A 2nd oblique incision was made over the volar aspect of the middle finger middle phalanx. The incision was made with a 15. Blade through the skin to the subcutaneous tissues . I then dissected down to the level of the flexor tendon sheath using tenotomy scissors. I made a longitudinal incision in the flexor tendon sheath through the A3 trinity. Again in this area there was quite a bit of swelling and fluid, but only a small amount obvious purulence. Our 1st culture was taken from this area A 3rd oblique incision was made over the volar aspect of the proximal phalanx just proximal to the PIP flexion crease. The incision was made through the skin the subcutaneous tissues using a 15. Blade. I then dissected down to the level of the flexor tendon sheath. In this area we encountered a significant amount of creamy yellow purulence. Neck is extended all the way down to and within the flexor tendon sheath just distal to the A2 trinity. Our 2nd and 3rd cultures were taken from this area. All 3 wounds were copiously irrigated with normal saline. I then placed an Angiocath within the flexor tendon sheath at the A1 trinity area and copiously irrigated from proximal to distal through the flexor tendon sheath with good flow through the wound at the proximal phalanx and some flow through the more distal wound. Once satisfied with that I then moved the Angiocath more distally to the area just distal to the A2 trinity. I then copiously irrigated and we had good flow coming out just proximal to the A4 trinity. I opened up to dorsal blisters with a 15. Blade and copiously irrigated these wounds as well At this point the tourniquet was deflated and hemostasis obtained with a brief period of local pressure. The wounds were again copiously irrigated with normal saline. The skin edges were loosely reapproximated with 5-0 nylon suture. The wound was infiltrated with some 0.5% plain ropivacaine for postop pain control and a sterile dressing was applied. The patient appears to have tolerated the procedure well and with no complications. All digits were well vascularized conclusion of the case.
[2024-10-06] MEDS: Lactated Ringers 1,000 ML 80 ML IVCONT ×2 (13:15→19:52)
--- NOTE | 2024-10-06 14:43 | HO.ANESPROP2 ---
HPI - Anesthesia Eval Consult details Narrative: 34yo male patient for I&D middle finger Right hand PMFSH Active Problems Active Problems: All Active Problems (Updated 10/06/24 @ 00:50 by Marion Bonilla PA-C) Elevated LFTs (Acute) Flexor tenosynovitis of finger (Acute) Sepsis (Acute) Hepatitis C (Acute) IVDU (intravenous drug user) (Acute) Tenosynovitis of fingers (Acute) Fracture of distal end of tibia (Acute) Medial malleolar fracture (Acute) Fracture of left talus (Acute) Past Medical History Medical History Hepatitis C IVDU (intravenous drug user) PTSD (post-traumatic stress disorder) Anxiety Anxiety Functional capacity: independent ambulation Family History Family history of problems with anesthesia: No Surgical History History of Problems with Anesthesia: No Social History Social History Household Members: Significant Other Housing: House Do you presently have visiting nurse or other home services: No Alcohol intake: current Alcohol intake frequency: does not drink Comment: counts correct Patient Tobacco Use Status: Current everyday Tobacco user Tobacco use type: Cigarette e-Cigarette/Vaping Use: Currently Using Second Hand Smoke Exposure: No Substance Use Type: Marijuana Current occupational status: student Meds Allergies Allergy/AdvReac Type Severity Reaction Status Date / Time No Known Allergies Allergy Unknown UNKNOWN Verified 10/05/24 19:55 [NO KNOWN ALLERGIES] Active Medications: Current Medications Acetaminophen (Acetaminophen 325 Mg Tablet) 975 mg PO Q6H PRN PRN Reason: Pain, Mild 1-3,fever,headache Last Admin: 10/06/24 05:06 Dose: 975 mg Amphetamine/Dextroamphetamine (Amphetamine Mixed Salts 20 Mg Tablet) 40 mg PO DAILY [facility] Last Admin: 10/06/24 11:24 Dose: 40 mg Calcium Carbonate (Calcium Carbonate 750 Mg Tab.Chew) 750 mg PO Q4H PRN PRN Reason: Heartburn Clonazepam (Clonazepam 1 Mg Tablet) 1 mg PO BID PRN PRN Reason: Anxiety Hydromorphone HCl (Hydromorphone Hcl 0.5 Mg/0.5 Ml Syringe) 0.5 mg IVPUSH Q4H PRN; Protocol PRN Reason: Pain, Severe (Pain Scale 7-10) Piperacillin Sod/Tazobactam (Sod 3.375 gm/ Sodium Chloride) 50 mls @ 100 mls/hr IV Q6H [facility] Last Infusion: 10/06/24 08:05 Dose: Infused Vancomycin HCl 1,500 mg/ (Sodium Chloride) 500 mls @ 333.333 mls/hr IV Q12H [facility] Last Admin: 10/06/24 11:23 Dose: 333.33 mls/hr Lactated Ringer's (Lr) 1,000 mls @ 80 mls/hr IVCONT .[id number] [facility] Last Admin: 10/06/24 13:15 Dose: 80 mls/hr Ketorolac Tromethamine (Ketorolac Tromethamine 15 Mg/Ml Vial) 15 mg IVPUSH Q6H [facility] Last Admin: 10/06/24 12:38 Dose: Not Given Magnesium Hydroxide (Milk Of Magnesia 30 Ml Oral.Susp) 30 ml PO DAILY PRN PRN Reason: Constipation Melatonin (Melatonin 3 Mg Tablet) 6 mg PO BEDTIME PRN PRN Reason: Insomnia Methadone HCl (Methadone Hcl 20 Mg/2 Ml Oral.Conc) 150 mg PO DAILY [facility] Last Admin: 10/06/24 11:20 Dose: 150 mg Morphine Sulfate (Morphine Sulfate 4 Mg/Ml Cartridge) 2 mg IVPUSH Q4H PRN; Protocol PRN Reason: Pain, Severe (Pain Scale 7-10) Last Admin: 10/06/24 08:34 Dose: 2 mg Ondansetron HCl (Ondansetron Hcl 4 Mg/2 Ml Vial) 4 mg IVPUSH Q8H PRN PRN Reason: Nausea and Vomiting Oxycodone HCl (Oxycodone Hcl Immed Release 5 Mg Tablet) 5 mg PO Q4H PRN PRN Reason: Pain, Moderate(Pain Scale 4-6) Pharmacy Consult (Consult Rx Vancomycin Dosing) 1 each MISCELLANE DAILY PRN PRN Reason: Consult order Sodium Chloride (0.9 % Sodium Chloride Flush 3 Ml Syringe) 3 ml IVFLUSH QSHIFT [facility] Last Admin: 10/06/24 07:21 Dose: 3 ml Home Medications ?Medication ?Instructions ?Recorded ?Confirmed ?Last Taken ?Type dextroamphetamine-amphetamine 20 40 mg PO DAILY 10/26/23 10/06/24 10/04/24 History mg tablet (Adderall) clonazepam 1 mg tablet 1 mg PO BID PRN Anxiety 10/06/24 10/06/24 10/04/24 History methadone 10 mg/mL oral concentrate 150 mg PO DAILY 10/06/24 10/06/24 10/04/24 History Exam Height,Weight and Vital Signs: Height 6 ft Weight 97.8 kg Last Vital Signs Temp 98.7 F 10/06/24 12:20 Pulse 78 10/06/24 12:20 Resp 16 10/06/24 12:20 BP 142/70 H 10/06/24 12:20 Pulse Ox 98 10/06/24 12:20 O2 Del Method Room Air 10/06/24 12:20 Pertinent Lab Results Pertinent Lab Results: Laboratory Tests 10/05/24 10/06/24 10/06/24 20:06 05:00 05:41 WBC 24.0 H 20.6 H RBC 4.99 4.40 L Hgb 15.6 13.8 L Hct 44.2 39.7 L MCV 88.6 90.2 MCH 31.3 31.4 MCHC 35.3 34.8 RDW 13.1 13.2 Plt Count 260 D 214 MPV 9.8 9.6 Immature Gran % (Auto) 0.6 H 0.4 Neut % (Auto) 85.7 H 76.8 H Lymph % (Auto) 5.7 L 11.8 L Pick[place] % (Auto) 7.7 10.1 Eos % (Auto) 0.0 0.6 Baso % (Auto) 0.3 0.3 Lymph # (Auto) 1.4 2.4 [place] # (Auto) 1.9 H 2.1 H Eos # (Auto) 0.0 0.1 Baso # (Auto) 0.1 0.1 Abs Immat Gran (auto) 0.14 H 0.08 H Absolute Neuts (auto) 20.5 H 15.8 H Absolute Nucleated RBC 0.000 0.000 Nucleated RBC % (auto) 0.0 0.0 Smear Tech's Comments VERIFIED VERIFIED ESR 2 Sodium 135 134 L Potassium 3.9 3.8 Chloride 102 104 Carbon Dioxide 22 24 Anion Gap 15 10 L BUN 20 H 16 Creatinine 1.24 0.96 Estim Creat Clear Calc 100.7 130.1 Estimated GFR > 60 > 60 Random Glucose 124 H 97 Lactic Acid 1.1 Calcium 9.4 8.2 L D Magnesium 1.8 Total Bilirubin 0.5 AST 55 H ALT 44 H Alkaline Phosphatase 82 C-Reactive Protein 7.28 H Total Protein 7.7 Albumin 4.4 Airway Mallampati Class: III TM Dist: >3cm Neck ROM: Full Loose/Missing/Broken Teeth: No (Temporary crown. Denies broken, loose or missing teeth) Heart: RRR Lungs: CTAB Assessment and Plan Assessment Anesthesia Assessment: Anesthesia Plan Discussed and Chart Reviewed Final Anesthetic Review Family History of Problems with Anesthesia: No History of Problems with Anesthesia: No NPO: Yes ASA Class: III and Emergency Final Preanesthetic Review: No Changes in Pt Med Stat, Meds/Allgs Chart Reviewed, Consent Obtained/Reviewed and Anes Risks/Benef Reviewed Patient Risk: Intermediate Procedure Risk: Low Assessment/Block/Sedation in SS: Assess/Block/Sedation-SS Anesthetic Plan Anesthetic Plan: GA Disposition: Standard PACU
[2024-10-06] MEDS: Ketorolac Tromethamine 15 MG/ML VIAL IVPUSH ×2 (18:07→22:38)
[2024-10-06] MEDS: Melatonin 3 MG TABLET 6 MG PO (19:27)
[2024-10-06] MEDS: clonazePAM 1 MG TABLET PO (19:27)
[2024-10-07] MEDS: Piperacillin Sodium/Tazobactam 3.375 GM in 0.9 % Sodium Chloride 50 ML IV ×4 (01:02→19:32)
[2024-10-07] MEDS: oxyCODONE HCl Immed Release 5 MG TABLET PO (01:05)
[2024-10-07 04:00] VITALS: BP 140/63; PULSE 63; RESP 18; TEMP 36.5; O2SAT 99
[2024-10-07] MEDS: Morphine Sulfate 4 MG/ML CARTRIDGE 2 MG IVPUSH ×3 (04:29→21:29)
[2024-10-07] MEDS: Ketorolac Tromethamine 15 MG/ML VIAL IVPUSH ×4 (04:31→22:33)
[2024-10-07 06:33] LABS: Anion Gap 11 (12-20); Blood Urea Nitrogen 16 mg/dL (9-16); Calcium 8.3 mg/dL (8.4-10.2); Carbon Dioxide 24 mmol/L (22-29); Chloride 106 mmol/L (96-108); Creatinine Clr Calc Pharmacy 154.2; Estimated Glomerular Filt Rate > 60; Glucose Random 122 mg/dL (60-115); Potassium 3.7 mmol/L (3.3-5.1); Sodium 137 mmol/L (135-145)
[2024-10-07] MEDS: Amphetamine Mixed Salts 20 MG TABLET 40 MG PO (07:08)
[2024-10-07] MEDS: clonazePAM 1 MG TABLET PO (07:08)
[2024-10-07] MEDS: methADONE HCl 20 MG/2 ML ORAL.CONC 150 MG PO (07:09)
--- NOTE | 2024-10-07 07:26 | HO.POSTANES ---
Post Anesthesia Evaluation Post Anesthesia Evaluation Date of Service: 10/07/24 Vital Signs: Vital Signs Temp Pulse Resp BP Pulse Ox O2 Del Method 10/07/24 04:00 97.7 F 63 18 140/63 H 99 Room Air 10/06/24 23:16 97.7 F 69 17 160/74 H 97 Room Air Anesthesia: General LMA Mental Status: Awake Pain Control: Satisfactory Nausea/Vomiting: None Hydration: Adequate Anesthesia-Related Issues: No Anes. Related Issues
[2024-10-07 07:30] VITALS: BP 146/79; PULSE 72; RESP 17; TEMP 36.9; O2SAT 99
--- NOTE | 2024-10-07 08:17 | PM.PNORT ---
Subjective Subjective Date of Service: 10/07/24 Interval history: Postop day 1 status post I and D of right middle finger flexor tendon Resting comfortably in bed this morning Pain well managed No acute events overnight Expresses concern about dressing change and pain No other acute complaints or concerns at this time Physical Exam Vital Signs: Vital Signs: Last Vital Signs Temp 98.4 F 10/07/24 07:30 Pulse 72 10/07/24 07:30 Resp 17 10/07/24 07:30 BP 146/79 H 10/07/24 07:30 Pulse Ox 99 10/07/24 07:30 O2 Del Method Room Air 10/07/24 07:30 O2 Flow Rate 6 10/06/24 15:12 BMI result Body Mass Index 29.2 Extrem: Other: Patient is alert, oriented, and in no acute distress. Neuro: Normal sensation of the tips of all digits of the right hand at this time Vascular: Cap refill brisk Pain: Patient does have some tenderness about the right middle finger when dressing is being changed, but patient reports that pain is significantly improved from prior to surgery ROM: Patient is able to get approximately a [address] to making a closed fist, restricted due to both dressing and pain Skin: Loosely approximated incisions noted over the A1 trinity, middle phalanx, and proximal phalanx of the right middle finger, on the volar aspect. No evidence of active drainage at this time General: No ecchymosis, erythema, or evidence of infection. Psych: Appears grossly normal Affect normal Attitude cooperative Procedures Date of Service Date of Service: 10/07/24 Progress Note: A&P Assessment and plan (1) Flexor tenosynovitis of finger: Status: Acute Plan 1. Flexor tenosynovitis of right middle finger Status post I and D DOS 10/06/2024 Patient appears to be recovering well postoperatively Patient is educated about the typical recovery course Dressing changed today Daily dressing changes with Xeroform, gauze, Jose De Jesus bandage Dressing changes as needed due to saturation Patient is educated to keep the hand moving Continue IV antibiotics per Medicine Continue with all other recommendations per Medicine Time Spent With Patient Time: Total time managing care of this patient today ____ minutes. Quality Stroke Does the patient have a stroke diagnosis?: No VTE Prior VTE?: No VTE Risk Level:: Medical - moderate - high VTE Device Contraindication: N/A - Device Ordered VTE Drug Contraindication: Treatment Not Indicated
[2024-10-07 09:50] LABS: Vancomycin Trough 5.9 mcg/mL (10.0-20.0)
--- NOTE | 2024-10-07 09:57 | HE.PHANOTE ---
Re: Vanco Pt has good and improving renal function. Trough returned at 5.9. Dose increased to 1,500mg q8h with predicted AUC 502, predicted trough 11.7. Next trough 10/08 @ 0900.
[2024-10-07] MEDS: vancomycin HCL 1,500 MG in 0.9 % Sodium Chloride 500 ML 333.33 MG IV (11:22)
[2024-10-07 11:25] VITALS: BP 150/81; PULSE 95; RESP 18; TEMP 37.4; O2SAT 96
--- NOTE | 2024-10-07 13:55 | P.PNIM_ITS ---
Subjective Subjective Date of Service: 10/07/24 Interval History: Being followed for sepsis due to right middle finger flexor tenosynovitis status post I and D. Feeling better this morning less pain and swelling, no fevers, no chills, tolerating diet with no nausea, no vomiting, no abdominal pain no diarrhea, no acute events overnight. Review of Systems All other system reviewed and are negative. Physical Exam 2 Vital Signs: Vital Signs: Last Vital Signs Temp 99.4 F 10/07/24 11:25 Pulse 95 10/07/24 11:25 Resp 18 10/07/24 11:25 BP 150/81 H 10/07/24 11:25 Pulse Ox 96 10/07/24 11:25 O2 Del Method Room Air 10/07/24 11:25 O2 Flow Rate 6 10/06/24 15:12 BMI result Body Mass Index 29.2 Const: Other: General: AOx3, no acute distress Resp: CTA bilaterally CVS: RRR GI: Soft, non tender ,bowel sounds audible. Skin: Warm, dry. right middle finger dressing in place, less swelling noted left hand. Neuro: Non focal Extremities: No LE edema Psych: Appropriate affect Objective Data Active Medications Acetaminophen (Acetaminophen 325 Mg Tablet) 975 mg PO Q6H PRN PRN Reason: Pain, Mild 1-3,fever,headache Last Admin: 10/06/24 05:06 Dose: 975 mg Documented By: FANNIE Amphetamine/Dextroamphetamine (Amphetamine Mixed Salts 20 Mg Tablet) 40 mg PO DAILY [facility] Last Admin: 10/07/24 07:08 Dose: 40 mg Documented By: MICHAEL Calcium Carbonate (Calcium Carbonate 750 Mg Tab.Chew) 750 mg PO Q4H PRN PRN Reason: Heartburn Clonazepam (Clonazepam 1 Mg Tablet) 1 mg PO BID PRN PRN Reason: Anxiety Last Admin: 10/07/24 07:08 Dose: 1 mg Documented By: MICHAEL Hydromorphone HCl (Hydromorphone Hcl 0.5 Mg/0.5 Ml Syringe) 0.5 mg IVPUSH Q4H PRN; Protocol PRN Reason: Pain, Severe (Pain Scale 7-10) Piperacillin Sod/Tazobactam (Sod 3.375 gm/ Sodium Chloride) 50 mls @ 100 mls/hr IV Q6H [facility] Last Infusion: 10/07/24 08:05 Dose: Infused Documented By: MICHAEL Vancomycin HCl 1,500 mg/ (Sodium Chloride) 500 mls @ 333.333 mls/hr IV Q8H [facility] Last Infusion: 10/07/24 12:58 Dose: Infused Documented By: MICHAEL Ketorolac Tromethamine (Ketorolac Tromethamine 15 Mg/Ml Vial) 15 mg IVPUSH Q6H [facility] Last Admin: 10/07/24 11:34 Dose: 15 mg Documented By: MICHAEL Magnesium Hydroxide (Milk Of Magnesia 30 Ml Oral.Susp) 30 ml PO DAILY PRN PRN Reason: Constipation Melatonin (Melatonin 3 Mg Tablet) 6 mg PO BEDTIME PRN PRN Reason: Insomnia Last Admin: 10/06/24 19:27 Dose: 6 mg Documented By: CARMEN Methadone HCl (Methadone Hcl 20 Mg/2 Ml Oral.Conc) 150 mg PO DAILY [facility] Last Admin: 10/07/24 07:09 Dose: 150 mg Documented By: MICHAEL Co-signed By: JAVY Morphine Sulfate (Morphine Sulfate 4 Mg/Ml Cartridge) 2 mg IVPUSH Q4H PRN; Protocol PRN Reason: Pain, Severe (Pain Scale 7-10) Last Admin: 10/07/24 11:51 Dose: 2 mg Documented By: MICHAEL Naloxone HCl (Naloxone Hcl 0.4 Mg/Ml Vial) 0.04 mg IVPUSH Q5M PRN PRN Reason: Excessive sedation or RR < 8 Ondansetron HCl (Ondansetron Hcl 4 Mg/2 Ml Vial) 4 mg IVPUSH Q8H PRN PRN Reason: Nausea and Vomiting Oxycodone HCl (Oxycodone Hcl Immed Release 5 Mg Tablet) 5 mg PO Q4H PRN PRN Reason: Pain, Moderate(Pain Scale 4-6) Last Admin: 10/07/24 01:05 Dose: 5 mg Documented By: CARMEN Pharmacy Consult (Consult Rx Vancomycin Dosing) 1 each MISCELLANE DAILY PRN PRN Reason: Consult order Sodium Chloride (0.9 % Sodium Chloride Flush 3 Ml Syringe) 3 ml IVFLUSH QSHIFT [facility] Last Admin: 10/07/24 06:41 Dose: Not Given Documented By: MICHAEL Non-Admin Reason: IV Running Labs 10/06/24 05:41 10/07/24 05:35 Labs: Laboratory Results - last 24 hr 10/07/24 10/07/24 05:35 09:17 Hold Purple Top SEE NOTE Anion Gap 11 L Estim Creat Clear Calc 154.2 Estimated GFR > 60 Random Glucose 122 H Calcium 8.3 L Vancomycin Trough 5.9 L Microbiology Microbiology Results: Microbiology 10/06/24 Unknown Gram Stain - Final Finger Right Middle Routine Culture - Preliminary Streptococcus pyogenes (Grp A) 10/06/24 Unknown Gram Stain - Final Finger Right Middle Routine Culture - Preliminary Streptococcus pyogenes (Grp A) 10/06/24 Unknown Gram Stain - Final Finger Right Middle Routine Culture - Preliminary Streptococcus pyogenes (Grp A) 10/05/24 20:06 Blood Culture - Preliminary Blood - Venous No growth after 24 hours. 10/05/24 20:06 Blood Culture - Preliminary Blood - Venous No growth after 24 hours. Assessment and Plan (1) Flexor tenosynovitis of finger: Status: Acute (2) Elevated LFTs: Status: Acute (3) Sepsis: Status: Acute (4) Hepatitis C: Status: Acute Plan 34-year-old male with a past medical history significant for history IV drug use, MRSA, mood disorder and hepatitis-C, who presented to the ED due to right middle finger swelling, redness and streaking. Sepsis secondary to flexor tenosynovitis right middle finger - WBC trending down, fever resolved , CRP elevated at 7.28 - on iv vancomycin and Zosyn started for Underwent I and D 10/06 by orthopedic surgeon, dressing changed with Xeroform, gauze and Jose De Jesus bandage today - monitor CBC, blood culture x2 negative , wound culture growing Streptococcus pyogenes - continue IV Toradol, IV Dilaudid and oxycodone for pain control - DC IV vancomycin and continue IV Zosyn, transitioned to by mouth if noted to have continued improvement. elevated LFTs - secondary to hepatitis C, no abdominal pain - continue outpatient follow-up mood disorder - continue home meds Substance use disorder - continue methadone full code VTE prophylaxis: pneumoboots patient with sepsis secondary to flexor tenosynovitis right middle finger, requiring continued inpatient hospitalization for IV antibiotics, and expert consultation Quality Stroke Does the patient have a stroke diagnosis?: No VTE Prior VTE?: No VTE Risk Level:: Medical - moderate - high VTE Device Contraindication: N/A - Device Ordered VTE Drug Contraindication: Treatment Not Indicated
--- NOTE | 2024-10-07 14:02 | PC.NURSE ---
pt refusing urine toxicology screen pt states due to work, and states he doesnt want them to find out hes on methadone
[2024-10-07] MEDS: 0.9 % Sodium Chloride Flush 3 ML SYRINGE IVFLUSH ×2 (15:09→21:29)
[2024-10-07 15:40] VITALS: BP 156/68; PULSE 91; RESP 17; TEMP 36.6; O2SAT 94
[2024-10-07] MEDS: Acyclovir 5 % Oint 15 GM TUBE TOPICAL (19:33)
[2024-10-07] MEDS: LORazepam 0.5 MG TABLET PO (19:35)
[2024-10-07] MEDS: Milk of Magnesia 30 ML ORAL.SUSP PO (19:41)
[2024-10-07 20:00] VITALS: BP 173/81; PULSE 96; RESP 16; TEMP 37.3; O2SAT 95
[2024-10-07] MEDS: Melatonin 3 MG TABLET 6 MG PO (20:12)
[2024-10-08] MEDS: Piperacillin Sodium/Tazobactam 3.375 GM in 0.9 % Sodium Chloride 50 ML IV ×3 (01:12→13:13)
[2024-10-08] MEDS: LORazepam 0.5 MG TABLET PO ×3 (01:15→10:17)
[2024-10-08] MEDS: Morphine Sulfate 4 MG/ML CARTRIDGE 2 MG IVPUSH ×3 (01:48→12:52)
[2024-10-08 02:54] VITALS: BP 136/90; PULSE 85; RESP 18; TEMP 36.7; O2SAT 95
[2024-10-08] MEDS: Acyclovir 5 % Oint 15 GM TUBE TOPICAL (03:17)
[2024-10-08] MEDS: Ketorolac Tromethamine 15 MG/ML VIAL IVPUSH ×2 (05:30→11:50)
[2024-10-08 07:03] LABS: Hematocrit 38.7 % (42.0-52.0); Hemoglobin 12.8 g/dl (14.0-18.0); Mean Corpuscular HGB Conc 33.1 g/dl (31.0-36.0); Mean Corpuscular Hemoglobin 30.6 pg (27.0-33.0); Mean Corpuscular Volume 92.6 fL (80.0-98.0); Platelet Count 251 X10*3/uL (160-400); Red Blood Count 4.18 X10*6/uL (4.60-5.80); Red Cell Distribution Width 13.4 % (11.0-16.0); White Blood Count 9.5 X10*3/uL (4.8-10.8)
[2024-10-08 07:14] LABS: Anion Gap 9 (12-20); Blood Urea Nitrogen 10 mg/dL (9-16); C Reactive Protein 4.12 mg/dL (< or = 0.50); Calcium 8.4 mg/dL (8.4-10.2); Carbon Dioxide 27 mmol/L (22-29); Chloride 106 mmol/L (96-108); Creatinine Clr Calc Pharmacy 140.3; Estimated Glomerular Filt Rate > 60; Glucose Random 127 mg/dL (60-115); Potassium 3.6 mmol/L (3.3-5.1); Sodium 138 mmol/L (135-145)
[2024-10-08] MEDS: Amphetamine Mixed Salts 20 MG TABLET 40 MG PO (07:21)
[2024-10-08] MEDS: methADONE HCl 20 MG/2 ML ORAL.CONC 150 MG PO (07:21)
[2024-10-08 07:22] VITALS: BP 138/68; PULSE 67; RESP 18; TEMP 36.6; O2SAT 96
[2024-10-08] MEDS: 0.9 % Sodium Chloride Flush 3 ML SYRINGE IVFLUSH (07:22)
--- NOTE | 2024-10-08 11:27 | PM.DS ---
DS: Providers Provider Date of Service: 10/08/24 Date of admission: 10/05/24 23:35 Date of discharge: 10/08/24 Primary care physician: Alexis Ware MD Consults: 10/05/24 23:35 Consult to Orthopedics Routine Consulting Provider: [facility] Reason for consultation: flexor tenosynovitis Has provider been notified: Yes 10/05/24 23:41 Consult to Infectious Diseases Routine Consulting Provider: [facility] Reason for consultation: flexor tenosynovitis Has provider been notified: No DS: Diagnosis Discharge Diagnosis (1) Flexor tenosynovitis of finger: Status: Acute (2) Elevated LFTs: Status: Acute (3) Sepsis: Status: Acute (4) Hepatitis C: Status: Acute DS: Summary Hospital Course Hospital Course: History of presenting illness Date of Service: 10/05/24 Attending physician on admission: Josue Ramos Chief Complaint: right hand pain Patient is a 34-year-old male with a past medical history significant for history IV drug use, MRSA, mood disorder and hepatitis-C, who presented to the ED due to right middle finger swelling, redness and streaking. He reports that he works at [employer] and thinks he might have gotten a splinter into his right middle finger he began to have pain 2 days ago with rapid worsening of pain and swelling This morning he woke with severe pain in the right middle finger with redness and streaking down the forearm. He reported 7/10 pain however now is 4/10 after some pain management and numbing. He reports it was draining earlier today, purulent fluid. He has had chills and a fever but denies any nausea or vomiting. Hospital course: 34-year-old male with a past medical history significant for history IV drug use, MRSA, mood disorder and hepatitis-C, who presented to the ED due to right middle finger swelling, redness and streaking. Sepsis secondary to flexor tenosynovitis right middle finger, treated with IV vancomycin and Zosyn, all features of sepsis resolved underwent I and D 10/06 by orthopedic surgeon, dressing changed with Xeroform, gauze and Jose De Jesus bandage ,blood culture x2 negative , wound culture growing Streptococcus pyogenes, will discharge home on 1 week of Augmentin and doxycycline recommend to take ibuprofen and oxycodone for pain control, outpatient occupational therapy, recommend daily wound change and outpatient follow-up with Orthopedic surgery in 1 week time Elevated LFTs - secondary to hepatitis C, no abdominal pain, continue outpatient follow-up. Mood disorder - continue home meds. Substance use disorder - continue methadone. Time Attestation Discharge Coordination Time (in mins): 40 Quality: Safe Use of Opioids Does Pt have an Active Cancer Diagnosis on the Problem List?: No Quality: Stroke Does the patient have a stroke diagnosis?: No Physical Exam Vital Signs: Vital Signs: Last Vital Signs Temp 97.9 F 10/08/24 07:22 Pulse 67 10/08/24 07:22 Resp 18 10/08/24 07:22 BP 138/68 10/08/24 07:22 Pulse Ox 96 10/08/24 07:22 O2 Del Method Room Air 10/08/24 07:22 O2 Flow Rate 6 10/06/24 15:12 BMI result Body Mass Index 29.2 Const: Other: General: AOx3, no acute distress Resp: CTA bilaterally CVS: RRR GI: Soft, non tender ,bowel sounds audible. Skin: Warm, dry. right middle finger Loosely approximated incisions noted over the A1 trinity, middle phalanx, and proximal phalanx of the right middle finger, on the volar aspect. No evidence of active drainage at this time swelling improving. Neuro: Non focal Extremities: No LE edema Psych: Appropriate affect DS: Data Data Completed and Pending Labs on day of discharge: Laboratory Results - last 24 hr 10/08/24 06:08 WBC 9.5 RBC 4.18 L Hgb 12.8 L Hct 38.7 L MCV 92.6 MCH 30.6 MCHC 33.1 RDW 13.4 Plt Count 251 MPV 10.0 Absolute Nucleated RBC 0.000 Nucleated RBC % (auto) 0.0 Sodium 138 Potassium 3.6 Chloride 106 Carbon Dioxide 27 Anion Gap 9 L BUN 10 Creatinine 0.89 Estim Creat Clear Calc 140.3 Estimated GFR > 60 Random Glucose 127 H Calcium 8.4 C-Reactive Protein 4.12 H Preliminary micro results at discharge 10/05/24 20:06 Blood Culture - Preliminary Blood - Venous No growth after 48 hours. 10/05/24 20:06 Blood Culture - Preliminary Blood - Venous No growth after 48 hours. Discharge Plan Discharge Anticipated Discharge Date/Time: 10/08/24 14:49 Patient Disposition: Home, Self-Care Discharge Diagnosis: Sepsis secondary to right middle finger tenosynovitis Referrals: Benny Fields PA [Physician Floor Covering Layer] - 1 Week (10/13/24 14:15 [facility] Surgeons Benny Fields PA) Alexis Ware MD [Primary Care Provider] - 1 Week Discharge Medications: New doxycycline monohydrate 100 mg capsule 100 mg PO BID Qty: 14 0RF amoxicillin-pot clavulanate 875-125 mg tablet 1 tab PO BID Qty: 14 0RF oxycodone 5 mg Tablet 5 mg PO Q4H PRN (Reason: Pain, Moderate(Pain Scale 4-6)) Qty: 20 0RF Rx Instructions: Partial Fill upon patient request. ibuprofen 600 mg tablet 600 mg PO TID Qty: 30 0RF Continued clonazepam 1 mg Tablet 1 mg PO BID PRN (Reason: Anxiety) methadone 10 mg/mL Concentrate 150 mg PO DAILY dextroamphetamine-amphetamine [Adderall] 20 mg tablet 40 mg PO DAILY Discharge Orders: Discharge Order (Routine); Ordered 10/08/24 Ordered By: June Najera Diet: Advance to usual diet Activity on Discharge: As tolerated Stand Alone Forms: Patient Portal Discharge page, Work/School Release Print Language: Nepali Activity Restrictions/Additional Instructions: Daily dressing change with Xeroform, gauze, Jose De Jesus bandage Keep incision sites clean, dry, intact Follow-up in orthopedic office with Dr. Nadira Avila's in one-week Care Plan Goals: Take by mouth antibiotic Augmentin and doxycycline 1 tablet twice daily for 1 week Outpatient occupational therapy Health Concerns: Take all home medications Plan of Treatment: Outpatient follow-up with orthopedic surgeon Dr. Nadira Velez in 1 week Assessment: As above
[2024-10-08] MEDS: oxyCODONE HCl Immed Release 5 MG TABLET PO (11:53)
--- NOTE | 2024-10-08 14:16 | MHC.CM.PN ---
Patient is discharged to home with family assist. He will have outpatient O.T. because he is not homebound. He has arranged for transporation home.
== END 2024-10-08 15:19 | disposition home or self-care (01) | DRG 854 ==
LOC: HO.ED 20:43 → HO.EDOVER 23:44 → HO.S3 10-06 07:11
PROVIDERS: Orthopaedic Surgery; Physician Assistant Medical; Admitting Provider Physician Assistant; Emergency Provider Internal Medicine; PCP Internal Medicine; Visit Provider Hospitalist
PROC: 0L970ZZ Drainage of Right Hand Tendon, Open Approach (ICD-10-PCS; principal; 2024-10-06 13:00)
DX: A41.9 Sepsis, unspecified organism (principal); F11.20 Opioid dependence, uncomplicated; M65.141 Other infective (teno)synovitis, right hand; F17.210 Nicotine dependence, cigarettes, uncomplicated; B95.0 Streptococcus, group A, as the cause of diseases classified elsewhere; F39 Unspecified mood [affective] disorder; Z86.19 Personal history of other infectious and parasitic diseases; Z71.6 Tobacco abuse counseling; Z86.14 Personal history of Methicillin resistant Staphylococcus aureus infection; Z79.899 Other long term (current) drug therapy
CPT/HCPCS: 36415; 73130; 80048; 80053; 80202; 83605; 83735; 85025; 85027; 85652; 86140; 87040; 87070; 87147; 87205; 97165; 99285; J0131; J1100; J1171; J1885; J2003; J2004; J2270; J2405; J2543; J2704; J2795; J3010; J3370; J3371; J7120

== ENCOUNTER → 2024-10-05 19:53 | Outpatient (BNV) | payer OTHER, SELFPAY | PROVIDERS: Emergency Provider Internal Medicine; PCP Obstetrics & Gynecology; Visit Provider Student in an Organized Health Care Education/Training Program | DX: M79.641 Pain in right hand (principal); R22.31 Localized swelling, mass and lump, right upper limb | CPT/HCPCS: 73130 ==

== ENCOUNTER → 2024-10-05 23:35 | Outpatient (BNV) | payer OTHER, SELFPAY | PROVIDERS: Admitting Provider Physician Assistant; Emergency Provider Internal Medicine; PCP Obstetrics & Gynecology; Visit Provider Hospitalist | DX: M65.949 Unspecified synovitis and tenosynovitis, unspecified hand (principal); R79.89 Other specified abnormal findings of blood chemistry; A41.9 Sepsis, unspecified organism; B19.20 Unspecified viral hepatitis C without hepatic coma | CPT/HCPCS: 99233; 99239 ==

== ENCOUNTER → 2024-10-05 23:35 | Outpatient (BNV) | payer OTHER, SELFPAY | PROVIDERS: Admitting Provider Physician Assistant; Emergency Provider Internal Medicine; PCP Obstetrics & Gynecology; Visit Provider Physician Assistant | DX: M65.841 Other synovitis and tenosynovitis, right hand (principal); Z48.89 Encounter for other specified surgical aftercare | CPT/HCPCS: 26020; 99024; 99223 ==

== ENCOUNTER 2024-10-10 08:06 | Outpatient (REF) | payer OTHER, SELFPAY ==
--- OUTSIDE RECORDS SUMMARY | 2024-10-13 08:27 | XMS_ITS | Clinical Summary ---
Author Organization [facility] Facility Address [address] [address] Care Team Providers Care Certified Recreational Therapist Name Role Phone Nelda Lawson MD Primary Care Provider + [phone] Social History Tobacco Use Types Packs/Day Years [...] Influenza Vaccine (Season Ended) 2025 Pneumococcal Vaccine: Peds ( 0 to 5 Years) and At-Risk Patients (6 to 49 Years) Aged Out No longer eligible b ased on patient's age to complete this topic [place] [address] [place] [address] Regions 1,2,3 (VACCN) Care Teams Certified Recreational Therapist Relationship Specialty Start Date End Date Nelda Lawson MD [address] [place] [id number] PCP - General Family Medicine 01/23/22
== END 2024-10-10 08:07 | disposition home or self-care (01) ==
LOC: HO.HOSX 08:06
PROVIDERS: Visit Provider Physician Assistant
DX: Z13.89 Encounter for screening for other disorder (principal)

== ENCOUNTER 2024-10-15 10:38 | Outpatient (AMB) | payer OTHER, SELFPAY ==
--- NOTE | 2024-10-15 10:39 | A.OFFVIS_ITS ---
Intake Visit Reasons: PO:Lt middle finger I&D 10/06/26 AR Intake Note: Angelito is a 34 year old right hand dominant male who presents today for a post operative visit s/p Right middle finger I&D of flexor tendon sheath DOS: 10/06/[address] Nadira Velez. Patient reports that he is doing well and has continued to take his antibiotics. He has kept the wound covered with bandaids and lisbeth wrap The wound looks swollen and there are some healing blisters on the side of the middle finger. Allergies No Known Allergies [NO KNOWN ALLERGIES] Allergy (Unknown, Verified 10/15/24 10:39) UNKNOWN HPI HPI PO:Lt middle finger I&D 10/06/26 AR: Details: Angelito is a 34 year old right hand dominant male who presents today for a post operative visit s/p Right middle finger I&D of flexor tendon sheath DOS: 10/06/[address] Nadira Velez. Patient reports that he is doing well and has continued to take his antibiotics. He has kept the wound covered with bandaids and lisbeth wrap The wound looks swollen and there are some healing blisters on the side of the middle finger. [facility] Medical History Hepatitis C IVDU (intravenous drug user) PTSD (post-traumatic stress disorder) Anxiety Anxiety Social History Household Members: Significant Other Housing: House Do you presently have visiting nurse or other home services: No Alcohol intake: current Alcohol intake frequency: does not drink Comment: counts correct Patient Tobacco Use Status: Current everyday Tobacco user Tobacco use type: Cigarette e-Cigarette/Vaping Use: Currently Using Second Hand Smoke Exposure: No Substance Use Type: Marijuana Current occupational status: student Review of Systems Const All systems reviewed & are unremarkable except as noted in HPI and below Physical Exam Vital Signs: Last Vital Signs Temp 98.4 F 10/07/24 07:30 Pulse 72 10/07/24 07:30 Resp 17 10/07/24 07:30 BP 146/79 H 10/07/24 07:30 Pulse Ox 99 10/07/24 07:30 O2 Del Method Room Air 10/07/24 07:30 O2 Flow Rate 6 10/06/24 15:12 BMI result Body Mass Index 29.2 Extrem Other: Patient is alert, oriented, and in no acute distress. Neuro: Normal sensation of the tips of all digits of the right hand at this time Vascular: Cap refill brisk Pain: No further tenderness about the right middle finger Very minimal discomfort with range of motion of the right middle finger ROM: Patient is able to get close to making a closed fist with the right middle finger Skin: Loosely approximated incisions noted over the A1 trinity, middle phalanx, and proximal phalanx of the right middle finger, on the volar aspect. No evidence of active drainage at this time There is some dried skin that has from the underlying skin tissue, likely represents blister that has drained General: No ecchymosis, erythema, or evidence of infection. Psych: Appears grossly normal Affect normal Attitude cooperative Assessment & Plan Assessment & Plan (1) Flexor tenosynovitis of finger: Code(s): M65.949 - Unspecified synovitis and tenosynovitis, unspecified hand Category: Medical Plan 1. Flexor tenosynovitis of right middle finger status post I and D DOS 10/06/2024 Patient appears to be recovering well postoperatively Patient is educated about the typical recovery course At this time, patient was informed he needs to finish his current course of antibiotics Continue with daily dressing changes Sutures to be removed in 1 week Patient was amenable to this plan Follow-up in 1 week for suture removal, sooner with any acute concerns Coding Level of Care Code Global (14580) Diagnoses Flexor tenosynovitis of finger M65.949
--- OUTSIDE RECORDS SUMMARY | 2024-10-15 12:34 | XMS_ITS | Clinical Summary ---
Author Organization [facility] Facility Address [address] [address] Care Team Providers Care Threshing Department Supervisor Name Role Phone Nelda Lawson MD Primary Care Provider + [phone] Social History Tobacco Use Types Packs/Day Years [...] patient's age to complete this topic [place] [address] [place] [address] Regions 1,2,3 (VACCN) Care Teams Threshing Department Supervisor Relationship Specialty Start Date End Date Nelda Lawson MD [address] [place] [id number] PCP - General Family Medicine 01/23/22
== END 2024-10-15 11:01 | disposition home or self-care (01) ==
PROVIDERS: PCP Internal Medicine
DX: M65.949 Unspecified synovitis and tenosynovitis, unspecified hand (principal)
CPT/HCPCS: 99024

== ENCOUNTER → 2024-10-15 10:38 | Outpatient (BNVA) | payer OTHER, SELFPAY | PROVIDERS: PCP Internal Medicine | DX: M65.949 Unspecified synovitis and tenosynovitis, unspecified hand (principal) | CPT/HCPCS: 99212 ==

== ENCOUNTER 2024-10-22 10:35 | Outpatient (AMB) | payer OTHER, SELFPAY ==
--- NOTE | 2024-10-22 10:36 | MHC.OFFVIS ---
Intake Visit Reasons: PO:RT middle finger I&D 10/06/26 AR-follow up Intake Note: Angelito is a 34 year old right hand dominant male who presents today for a post operative visit s/p Right middle finger I&D of flexor tendon sheath DOS: 10/06/[address] Nadira Velez. Patient reports that he is doing well, he has concerns abut the incision pulling apart. Overall no signs of swelling, redness or drainage at incision site. He has not yet started OT, he reports that he has not yet been called. Allergies No Known Allergies [NO KNOWN ALLERGIES] Allergy (Unknown, Verified 10/22/24 10:58) UNKNOWN HPI HPI PO:RT middle finger I&D 10/06/26 AR-follow up: Details: Angelito is a 34 year old right hand dominant male who presents today for a post operative visit s/p Right middle finger I&D of flexor tendon sheath DOS: 10/06/[address] Nadira Velez. Patient reports that he is doing well, he has concerns abut the incision pulling apart. Overall no signs of swelling, redness or drainage at incision site. He has not yet started OT, he reports that he has not yet been called. [facility] Medical History Hepatitis C IVDU (intravenous drug user) PTSD (post-traumatic stress disorder) Anxiety Anxiety Social History Household Members: Significant Other Housing: House Do you presently have visiting nurse or other home services: No Alcohol intake: current Alcohol intake frequency: does not drink Comment: counts correct Patient Tobacco Use Status: Current everyday Tobacco user Tobacco use type: Cigarette e-Cigarette/Vaping Use: Currently Using Second Hand Smoke Exposure: No Substance Use Type: Marijuana Current occupational status: student Review of Systems Const All systems reviewed & are unremarkable except as noted in HPI and below Physical Exam Vital Signs: Last Vital Signs Temp 98.4 F 10/07/24 07:30 Pulse 72 10/07/24 07:30 Resp 17 10/07/24 07:30 BP 146/79 H 10/07/24 07:30 Pulse Ox 99 10/07/24 07:30 O2 Del Method Room Air 10/07/24 07:30 O2 Flow Rate 6 10/06/24 15:12 BMI result Body Mass Index 29.2 Extrem Other: Patient is alert, oriented, and in no acute distress. Neuro: Normal sensation of the tips of all digits of the right hand at this time Vascular: Cap refill brisk Pain: No further tenderness about the right middle finger Very minimal discomfort with range of motion of the right middle finger ROM: Patient is able to get close to making a closed fist with the right middle finger Skin: Loosely approximated incisions noted over the A1 trinity, middle phalanx, and proximal phalanx of the right middle finger, on the volar aspect. No evidence of active drainage at this time There is some dried skin that has from the underlying skin tissue appears to have General: No ecchymosis, erythema, or evidence of infection. Psych: Appears grossly normal Affect normal Attitude cooperative Assessment & Plan Assessment & Plan (1) Flexor tenosynovitis of finger: Code(s): M65.949 - Unspecified synovitis and tenosynovitis, unspecified hand Category: Medical Plan 1. Flexor tenosynovitis of right middle finger status post I and D DOS 10/06/2024 Patient appears to be recovering well postoperatively Patient is educated about the typical recovery course Abx refilled Continue with daily dressing changes Sutures to be removed in 1 week Patient was amenable to this plan Follow-up in 1-2 weeks, sooner with any acute concerns Medications: Refilled amoxicillin-pot clavulanate 875-125 mg 1 tab PO BID 14 tabs 0RF doxycycline monohydrate 100 mg PO BID 14 caps 0RF Coding Level of Care Code Global (32864) Diagnoses Flexor tenosynovitis of finger M65.949
--- OUTSIDE RECORDS SUMMARY | 2024-10-22 12:30 | XMS_ITS | Clinical Summary ---
Author Organization [facility] Facility Address [address] [address] Care Team Providers Care Epic [facility] Name Role Phone Nelda Lawson MD Primary Care Provider + [phone] Social History Tobacco Use Types Packs/Day Years [...] patient's age to complete this topic Insurance [place] [address] Regions 1,2,3 (VACCN) Care Teams Epic [facility] Relationship Specialty Start Date End Date Nelda Lawson MD [address] [place] [id number] PCP - General Family Medicine 01/23/22
== END 2024-10-22 11:07 | disposition home or self-care (01) ==
LOC: HO.HOS 10:36
PROVIDERS: PCP Internal Medicine
DX: M65.949 Unspecified synovitis and tenosynovitis, unspecified hand (principal)
CPT/HCPCS: 99024

== ENCOUNTER → 2024-10-22 10:35 | Outpatient (BNVA) | payer OTHER, SELFPAY | PROVIDERS: PCP Internal Medicine | DX: Z47.89 Encounter for other orthopedic aftercare (principal); Z98.890 Other specified postprocedural states | CPT/HCPCS: 99212 ==

== ENCOUNTER 2024-10-29 14:39 | Outpatient (AMB) | payer OTHER, SELFPAY ==
--- NOTE | 2024-10-29 14:52 | A.OFFVIS_ITS ---
Intake Visit Reasons: PO:RT middle finger I&D 10/06/26 AR Intake Note: Angelito is a 34 year old right hand dominant male who presents today for a post operative visit s/p Right middle finger I&D of flexor tendon sheath DOS: 10/06/[address] Nadira Velez. At his last visit his antibiotics were refilled. Allergies No Known Allergies [NO KNOWN ALLERGIES] Allergy (Unknown, Verified 10/22/24 10:58) UNKNOWN HPI HPI PO:RT middle finger I&D 10/06/26 AR: Details: Angelito is a 34 year old right hand dominant male who presents today for a post operative visit s/p Right middle finger I&D of flexor tendon sheath DOS: 10/06/[address] Nadira Velez. At his last visit his antibiotics were refilled. Patient reports his pain has all but resolved, and then he has no ongoing concerns. [facility] Medical History Hepatitis C IVDU (intravenous drug user) PTSD (post-traumatic stress disorder) Anxiety Anxiety Social History Household Members: Significant Other Housing: House Do you presently have visiting nurse or other home services: No Alcohol intake: current Alcohol intake frequency: does not drink Comment: counts correct Patient Tobacco Use Status: Current everyday Tobacco user Tobacco use type: Cigarette e-Cigarette/Vaping Use: Currently Using Second Hand Smoke Exposure: No Substance Use Type: Marijuana Current occupational status: student Review of Systems Const All systems reviewed & are unremarkable except as noted in HPI and below Physical Exam Vital Signs: Last Vital Signs Temp 98.4 F 10/07/24 07:30 Pulse 72 10/07/24 07:30 Resp 17 10/07/24 07:30 BP 146/79 H 10/07/24 07:30 Pulse Ox 99 10/07/24 07:30 O2 Del Method Room Air 10/07/24 07:30 O2 Flow Rate 6 10/06/24 15:12 BMI result Body Mass Index 29.2 Extrem Other: Patient is alert, oriented, and in no acute distress. Neuro: Normal sensation of the tips of all digits of the right hand at this time Vascular: Cap refill brisk Pain: No further tenderness about the right middle finger Very minimal discomfort with range of motion of the right middle finger ROM: Patient is able to get close to making a closed fist with the right middle finger Skin: Loosely approximated incisions noted over the A1 trinity, middle phalanx, and proximal phalanx of the right middle finger, on the volar aspect. No evidence of active drainage at this time Dried skin has resolved General: No ecchymosis, erythema, or evidence of infection. Psych: Appears grossly normal Affect normal Attitude cooperative Assessment & Plan Assessment & Plan (1) Flexor tenosynovitis of finger: Code(s): M65.949 - Unspecified synovitis and tenosynovitis, unspecified hand Category: Medical Plan 1. Flexor tenosynovitis of right middle finger status post I and D DOS 10/06/2024 Patient appears to be recovering well postoperatively Patient is educated about the typical recovery course Abx refilled Continue with daily dressing changes Sutures removed without issue Patient was amenable to this plan It follow-up in 2 weeks, sooner with any acute concerns Coding Level of Care Code Global (77113) Diagnoses Flexor tenosynovitis of finger M65.949
--- OUTSIDE RECORDS SUMMARY | 2024-10-29 15:52 | XMS_ITS | Clinical Summary ---
Author Organization [facility] Facility Address [address] [address] Care Team Providers Care Concessions Manager Name Role Phone Nelda Lawson MD Primary Care Provider + [phone] Social History Tobacco Use Types Packs/Day Years [...] patient's age to complete this topic [place] [address] [place] [address] Regions 1,2,3 ([employer]) Care Teams Concessions Manager Relationship Specialty Start Date End Date Nelda Lwason MD [address] [place] [id number] PCP - General Family Medicine 01/23/22
== END 2024-10-29 14:59 | disposition home or self-care (01) ==
LOC: HO.HOS 14:39
PROVIDERS: PCP Internal Medicine
DX: M65.949 Unspecified synovitis and tenosynovitis, unspecified hand (principal)
CPT/HCPCS: 99024

== ENCOUNTER → 2024-10-29 14:39 | Outpatient (BNVA) | payer OTHER, SELFPAY | PROVIDERS: PCP Internal Medicine | DX: Z47.89 Encounter for other orthopedic aftercare (principal) | CPT/HCPCS: 99212 ==

== ENCOUNTER 2024-11-12 13:23 | Outpatient (AMB) | payer OTHER, SELFPAY ==
--- NOTE | 2024-11-12 13:23 | A.OFFVIS_ITS ---
Vital Signs 11/12/24 13:27 Height 6 ft Weight 215 lb BMI 29.2 Intake Visit Reasons: PO:RT middle finger I&D 10/06/26 AR Intake Note: Angelito is a 34 year old right hand dominant male who presents today for a post operative visit s/p right middle finger I&D of flexor tendon sheath DOS: 10/06/[address] Nadira Velez. During his last post-operative visit sutures were removed and antibiotics were refilled. Patient reports he is generally doing well. Patient is no longer taking antibiotics. Patient states he is unable to make a full fist with his right middle finger. Allergies No Known Allergies [NO KNOWN ALLERGIES] Allergy (Unknown, Verified 11/12/24 13:27) UNKNOWN HPI HPI PO:RT middle finger I&D 10/06/26 AR: Details: Angelito is a 34 year old right hand dominant male who presents today for a post operative visit s/p right middle finger I&D of flexor tendon sheath DOS: 10/06/[address] Nadira Velez. During his last post-operative visit sutures were removed and antibiotics were refilled. Patient reports he is generally doing well. Patient is no longer taking antibiotics. Patient states he is unable to make a full fist with his right middle finger. [facility] Medical History Hepatitis C IVDU (intravenous drug user) PTSD (post-traumatic stress disorder) Anxiety Anxiety Social History Household Members: Significant Other Housing: House Do you presently have visiting nurse or other home services: No Alcohol intake: current Alcohol intake frequency: does not drink Comment: counts correct Patient Tobacco Use Status: Current everyday Tobacco user Tobacco use type: Cigarette e-Cigarette/Vaping Use: Currently Using Second Hand Smoke Exposure: No Substance Use Type: Marijuana Current occupational status: student Review of Systems Const All systems reviewed & are unremarkable except as noted in HPI and below Physical Exam Vital Signs: BMI result Body Mass Index 29.2 Last Vital Signs Temp 98.4 F 10/07/24 07:30 Pulse 72 10/07/24 07:30 Resp 17 10/07/24 07:30 BP 146/79 H 10/07/24 07:30 Pulse Ox 99 10/07/24 07:30 O2 Del Method Room Air 10/07/24 07:30 O2 Flow Rate 6 10/06/24 15:12 BMI result Body Mass Index 29.2 Extrem Other: Patient is alert, oriented, and in no acute distress. Neuro: Normal sensation of the tips of all digits of the right hand at this time Vascular: Cap refill brisk Pain: No further tenderness about the right middle finger No discomfort with range of motion of the right middle finger ROM: Patient is able to make a closed fist with the right middle finger and all of the digits of the right hand Skin: Incisions on right middle finger are well healed at this time General: No ecchymosis, erythema, or evidence of infection. Psych: Appears grossly normal Affect normal Attitude cooperative Assessment & Plan Assessment & Plan (1) Flexor tenosynovitis of finger: Code(s): M65.949 - Unspecified synovitis and tenosynovitis, unspecified hand Category: Medical Plan 1. Flexor tenosynovitis of right middle finger status post I and D DOS 10/06/2024 Patient appears to be recovering well postoperatively Patient is educated about the typical recovery course No further antibiotic therapy indicated No further dressing indicated Patient was amenable to this plan Follow-up as needed Coding Level of Care Code Global (89979) Diagnoses Flexor tenosynovitis of finger M65.949
[2024-11-12 13:27] VITALS: BMI 29.2
--- OUTSIDE RECORDS SUMMARY | 2024-11-12 13:33 | XMS_ITS | Clinical Summary ---
Author Organization [facility] Facility Address [address] [address] Care Team Providers Care Patent Clerk Name Role Phone Nelda Lawson MD Primary Care Provider + [phone] Social History Tobacco Use Types Packs/Day Years [...] patient's age to complete this topic [place] [address] [place] [address] Regions 1,2,3 ([employer]) Care Teams Patent Clerk Relationship Specialty Start Date End Date Nelda Lawson MD [address] [place] [id number] PCP - General Family Medicine 01/23/22
== END 2024-11-12 13:38 | disposition home or self-care (01) ==
LOC: HO.HOS 13:23
PROVIDERS: PCP Internal Medicine
DX: M65.949 Unspecified synovitis and tenosynovitis, unspecified hand (principal)
CPT/HCPCS: 99024

== ENCOUNTER → 2024-11-12 13:23 | Outpatient (BNVA) | payer OTHER, SELFPAY | PROVIDERS: PCP Internal Medicine | DX: M65.941 Unspecified synovitis and tenosynovitis, right hand (principal); Z98.890 Other specified postprocedural states | CPT/HCPCS: 99212 ==

== ENCOUNTER 2025-03-24 18:55 | Inpatient (IN) | payer OTHER, SELFPAY ==
[2025-03-24] VITALS (12 sets, daily range): BP systolic 94–162; BP diastolic 39–66; PULSE 61–168; RESP 12–45; TEMP 31–38.8; O2SAT 95–100; BMI 27.2
--- NOTE | ~2025-03-24 | CT_ITS ---
CLINICAL HISTORY: ams CT head without contrast Comparison: None provided Findings: No intra-axial mass, midline shift, hydrocephalus, or acute hemorrhage. No significant atrophy-like change or white matter disease. The visualized paranasal sinuses and mastoid air cells are normal. The orbits are unremarkable. There is no acute fracture. IMPRESSION: 1. No acute intracranial findings. This document has been electronically signed by: Dami Sanchez MD on 03/24/2025 22:57:11
--- NOTE | ~2025-03-24 | CT_ITS ---
CLINICAL HISTORY: neck pain CT cervical spine without contrast Comparison: None provided Findings: Vertebral alignment is within normal limits. No significant degenerative change. No acute fractures or dislocations. No acute findings on limited view of the intracranial contents. Soft tissues of the neck are normal. Lung apices are clear. Endotracheal tube present. IMPRESSION: 1. No acute cervical spine injury. 2. Endotracheal tube present. This document has been electronically signed by: Dami Sanchez MD on 03/24/2025 22:57:00
--- NOTE | ~2025-03-24 | XR_ITS ---
EXAMINATION: XR CHEST CLINICAL INFORMATION: s/p NGT placement COMPARISON: CT from one day ago TECHNIQUE: Frontal view of the chest was obtained. FINDINGS: ET tube tip is in the upper thoracic trachea Since the prior, NG tube has been placed. There is a loop visible in the upper chest. The side port is in the distal esophagus, just proximal to the GE junction. The tip is in the stomach. Lungs are clear. Heart size is unremarkable. XR/XR chest 1V IMPRESSION: ET tube in the upper thoracic trachea and could be advanced 3-4 cm. NG tubing is looped in the upper esophagus. The side port is in the distal esophagus proximal to the GE junction. The tip is in the stomach. Electronically signed by: Kel Watson MD 03/25/2025 10:36 AM EDT
--- NOTE | ~2025-03-24 | CT_ITS ---
CLINICAL HISTORY: abd pain CT abdomen and pelvis with contrast Comparison: None provided Findings: Bibasilar dependent subsegmental atelectasis. Unremarkable gallbladder and solid organs. No urolithiasis. There is diffuse fecal material seen throughout the colon. Prostate is within normal limits. The appendix is within normal limits. Martines catheter in bladder. The bones are intact. IMPRESSION: 1. No acute intraabdominal or pelvic pathology. 2. Bibasilar dependent subsegmental atelectasis. 3. Constipation. This document has been electronically signed by: Dami Sanchez MD on 03/24/2025 23:15:15
--- NOTE | ~2025-03-24 | CT_ITS ---
CLINICAL HISTORY: chest trauma CT chest with contrast Comparison: None provided Findings: The heart is normal size. The visualized thyroid and mediastinum are unremarkable. Endotracheal tube tip 4 cm above the zack. Bibasilar dependent subsegmental atelectasis. The visualized upper abdomen is unremarkable. No acute fractures. IMPRESSION: 1. No acute intrathoracic findings. 2. Endotracheal tube tip 4 cm above the zack. 3. Bibasilar dependent subsegmental atelectasis. This document has been electronically signed by: Dami Sanchez MD on 03/24/2025 23:06:29
[2025-03-24] MEDS: diazePAM 10 MG/2 ML CARTRIDGE 5 MG IM (19:00)
[2025-03-24] MEDS: dexmedeTOMIDine HCL/NS 400 MCG/100 ML PLAST..BAG 22.73 MCG IVCONT (19:43)
[2025-03-24] MEDS: fentaNYL citrate/NS 1,000 MCG/100 ML PLAST..BAG 2.5 MCG IVCONT (19:44)
--- NOTE | 2025-03-24 19:48 | ECG_ITS ---
Test Reason : AMS Blood Pressure : */* mmHG Vent. Rate : 98 BPM Atrial Rate : 98 BPM P-R Int : 146 ms QRS Dur : 96 ms QT Int : 336 ms P-R-T Axes : 42 37 30 degrees QTcB Int : 428 ms Normal sinus rhythm Nonspecific T wave abnormality Abnormal ECG When compared with ECG of 29-Jun-2021 18:20, No significant change was found Referred By: Amara Dos Santos Electronically Signed By: Shaq Fletcher
--- NOTE | 2025-03-24 20:14 | ED_ITS ---
HPI - General Adult General Stated complaint: drug use Time Seen by Provider: 03/24/25 20:04 Source: EMS Mode of arrival: EMS Limitations: altered mental status History of Present Illness ED Provider: [email or web address] Dos Santos HPI narrative: 34-year-old male history of IV drug use, hepatitis-C, recently released from incarceration presenting to the emergency department via ambulance with police and EMS for erratic behavior. Patient's neighbors called the police after he was running around outside yelling for his dog and his ex. He then ran into the hunt, stumbled, fell. Patient is far too altered to provide a history. Very combative, very very very violent. Patient spitting, biting, swinging at multiple staff members unfortunately. Police also helping with this patient since patient arrived to the department there was at least 8-10 people helping hold him down at all times. He is quite agitated and very combative Related Data Home Medications ?Medication ?Instructions ?Recorded ?Confirmed dextroamphetamine-amphetamine 20 40 mg PO DAILY 10/06/24 mg tablet (Adderall) clonazepam 1 mg tablet 1 mg PO BID PRN Anxiety 01/2310/06/24 methadone 10 mg/mL oral concentrate 150 mg PO DAILY 10/06/24 Previous Rx's ?Medication ?Instructions ?Recorded ibuprofen 600 mg tablet 600 mg PO TID Pain moderate 4-6 10/08/24 #30 tabs Allergies Allergy/AdvReac Type Severity Reaction Status Date / Time No Known Allergies (NO KNOWN Allergy Unknown UNKNOWN Verified 11/12/24 13:27 ALLERGIES) Review of Systems 2 Review of Systems: Yes all other systems are reviewed and are negative PMFSH Past Medical History Attestation statement: The following information was validated with the patient. Source: old records reviewed and nursing notes reviewed Medical History Hepatitis C IVDU (intravenous drug user) PTSD (post-traumatic stress disorder) Anxiety Anxiety Social History Social History Household Members: Significant Other Housing: House Do you presently have visiting nurse or other home services: No Alcohol intake: current Alcohol intake frequency: does not drink Comment: counts correct Patient Tobacco Use Status: Current everyday Tobacco user Tobacco use type: Cigarette e-Cigarette/Vaping Use: Currently Using Second Hand Smoke Exposure: No Substance Use Type: Marijuana Advance Directives: No Advance Directives Information Provided: No Current occupational status: student Physical Exam ED Exam Exam: Appearance: Alert.? Oriented X0.? Head: Normocephalic, atraumatic, no step-offs or deformities Eyes: Pupils equal, round and reactive to light.? Neck: Normal inspection.? Neck supple.? CVS: Normal heart rate and rhythm.? Pulses normal.? Respiratory: No respiratory distress.? Breath sounds normal.? Abdomen: Soft and nontender.? Skin: Skin warm and dry.? Normal skin color.? Normal skin turgor.? Extremities: No lower extremity edema.? No calf ttp. 5/5 strength to bilateral upper and lower extremities Neuro: Oriented X 0.? No motor deficit.? No sensory deficit. Unable to preform CN exam Vital Signs: Vital Signs - 24 hr 03/24/25 20:25 03/24/25 21:03 Temperature 99.8 F Fraction of Inspired Oxygen 100 BMI result Body Mass Index 27.2 vss Course Reevaluation(s) Reevaluation #1: Despite multiple paralytics, patient continues to wake up in his chewing on the vent. Will add propofol I did reach out to the ICU for help on management of sedatives as patient is fighting sedation Patient's core temperature is elevated significantly this is likely secondary to rhabdo/acute agitation. Ice packs and cooling blanket placed. Time: 20:25 Reevaluation #2: CBC with leukocytosis and left shift. I suspect this is secondary to agitation/reactive however will cover with antibiotics. Chemistry pending. Imaging pending Plan is ICU admission. ICU has seen this patient however we shall message them when imaging is back Time: 20:58 Medications Administered Generic Name Dose Route Start Last Admin Trade Name Freq PRN Reason Stop Dose Admin Dexmedetomidine HCl 400 mcg in 100 mls @ 0 mls/hr 03/24/25 19:45 03/24/25 21:02 Precedex IVCONT Infused .Q0M SHANNEN Titration Protocol Per Protocol Fentanyl 1,000 mcg in 100 mls @ 0 mls/hr 03/24/25 19:45 03/24/25 20:10 Sublimaze/Ns IVCONT 50 mcg/hr .Q0M SHANNEN 5 mls/hr Protocol Titration Per Protocol Propofol 1,000 mg in 100 mls @ 0 mls/hr 03/24/25 20:15 03/24/25 20:28 Diprivan IVCONT 30 mcg/kg/min .Q0M SHANNEN 16.36 mls/hr Protocol Administration Per Protocol Sodium Chloride 2,727 mls @ 2,727 mls/hr 03/24/25 20:30 03/24/25 20:36 Ns 30 ml/kg infuse over 1 hr (2727 ml) 03/24/25 21:29 2,727 mls/hr IV Administration .Q1H STA Discontinued Medications Generic Name Dose Route Start Last Admin Trade Name Freq PRN Reason Stop Dose Admin Diazepam 5 mg 03/24/25 19:41 03/24/25 19:00 Diazepam 10 Mg/2 Ml Cartridge IM 03/24/25 19:42 5 mg STAT STA Administration Diphenhydramine HCl 50 mg 03/24/25 19:41 03/24/25 19:00 Diphenhydramine Hcl 50 Mg/Ml Vial IM 03/24/25 19:42 50 mg ONCE ONE Administration Famotidine 20 mg 03/24/25 20:39 03/24/25 20:59 Famotidine/Pf 20 Mg/2 Ml Vial IVPUSH 03/24/25 20:40 20 mg ONCE ONE Administration Haloperidol Lactate 5 mg 03/24/25 19:41 03/24/25 19:00 Haloperidol Lactate 5 Mg/Ml Vial IM 03/24/25 19:42 5 mg STAT STA Administration Haloperidol Lactate 5 mg 03/24/25 19:41 03/24/25 19:07 Haloperidol Lactate 5 Mg/Ml Vial IM 03/24/25 19:42 5 mg ONCE ONE Administration Haloperidol Lactate 5 mg 03/24/25 19:41 03/24/25 19:10 Haloperidol Lactate 5 Mg/Ml Vial IM 03/24/25 19:42 5 mg ONCE ONE Administration Acetaminophen 1,000 mg in 100 mls @ 400 mls/hr 03/24/25 19:49 03/24/25 21:02 Ofirmev IV 03/24/25 20:03 Infused ONCE ONE Infusion Piperacillin Sod/Tazobactam 50 mls @ 100 mls/hr 03/24/25 20:30 03/24/25 20:42 Sod 3.375 gm/ Sodium Chloride IV 03/24/25 20:59 100 mls/hr ONCE ONE Administration Ketamine HCl 100 mg 03/24/25 19:41 03/24/25 19:16 Ketamine Hcl 500 Mg/5 Ml Vial IM 03/24/25 19:42 100 mg ONCE ONE Administration Ketamine HCl 100 mg 03/24/25 19:41 03/24/25 19:17 Ketamine Hcl 500 Mg/5 Ml Vial IM 03/24/25 19:42 100 mg ONCE ONE Administration Rocuronium [place] 50 mg 03/24/25 20:52 03/24/25 20:58 Rocuronium [place] 50 Mg/5 Ml Vial IVPUSH 03/24/25 20:53 50 mg ONCE ONE Administration Procedures Intubation Intubation Type:: Endotracheal Tube Insertion Intubation Date:: 03/24/25 Time out performed: Yes sedative: Ketamine (200 mg IM prior ) paralytic: Rocuronium Mg Given: 50 Laryngoscope: fiber optic video scope Assist Device Used: fiber optic device ET Tube Size: 7.5 ET Tube Uncuffed: No Tube Secured Depth (cm): 21 Tube Secured Location: lips Tube Placement Confirmation: visualized tube passing through cords, equal breath sounds bilaterally, no breath sounds over epigastrium and confirmation by capnometry Patient Tolerated Procedure: well Intubation Complications: none Additional Comments: Dr. Mcfarlane available p.r.n. Medical Decision Making Medical Decision Making MDM Narrative: 2019 34-year-old male presents with very combative behavior. Very aggressive. Physical exam patient extremely combative. Danger to self and others History and physical exam concerning for polysubstance abuse with drug-induced psychosis and aggressive behavior. Will rule out metabolic derangements. Patient is a likely in rhabdomyolysis. Will rule out traumatic injuries to head, neck, chest, abdomen and pelvis as he was found in the [facility]. Plan labs, imaging. Due to patient being extremely combative not responding to IM medications the decision was made with my attending to proceed with intubation for airway protection and for safety of patient and others. Again at all times there is approximately 8-10 people assisting by holding patient down for his safety. Please see nursing notes for times and medications given Intubation was performed by this PA-C without any complications. I was able to visualize the cords without difficulty. 7.5 tube 21 at the lips with positive color metric. Will start fentanyl and Precedex. Differential Diagnosis Differential Diagnoses: The differential diagnosis associated with the presentation includes (History and physical exam concerning for polysubstance abuse with drug-induced psychosis and aggressive behavior. Will rule out metabolic derangements. Patient is a likely in rhabdomyolysis. Will rule out traumatic injuries to head, neck, chest, abdomen and pelvis as he was found in the [facility].) Admission/Observation Consideration of admission/observation: Escalation of care including admission/observation considered Lab Data MDM Lab Attestation statement: I reviewed the patient's lab results. 03/24/25 20:39 03/24/25 20:39 Labs: Lab Results 03/24/25 03/24/25 03/24/25 Range/Units 20:37 20:39 20:39 WBC 13.2 H 13.0 H (4.8-10.8) X10*3/uL RBC 4.18 L (4.60-5.80) X10*6/uL Hgb (14.0-18.0) g/dl Hct (42.0-52.0) % MCV (80.0-98.0) fL MCH (27.0-33.0) pg MCHC (31.0-36.0) g/dl RDW (11.0-16.0) % Plt Count (160-400) X10*3/uL MPV (9.4-12.4) fL Immature Gran % (Auto) (0.0-0.4) % Neut % (Auto) (45-73) % Lymph % (Auto) (20-40) % [place] % (Auto) (2-11) % Eos % (Auto) (0-4) % Baso % (Auto) (0-2) % Lymph # (Auto) (1.2-4.9) X10*3/uL [place] # (Auto) (0.1-1.2) X10*3/uL Eos # (Auto) (0.0-0.4) X10*3/uL Baso # (Auto) (0.0-0.2) X10*3/uL Abs Immat Gran (auto) (0.00-0.03) X10*3/uL Absolute Neuts (auto) (2.0-8.3) x10*3/uL Absolute Nucleated RBC (0.0-0.012) X10*3/uL Nucleated RBC % (auto) (0.0-0.2) /100WBC O2 Saturation 100.0 % ABG pH at Pt Temp 7.51 H (7.35-7.45) ABG pCO2 at Pt Temp 35 (32-45) mmHg ABG pO2 at Pt Temp 206 H (83-108) mmHg ABG HCO3 28 H (22-26) mmol/L ABG Base Excess (Actual) 6.0 mmol/L Sodium (135-145) mmol/L Potassium (3.3-5.1) mmol/L Chloride (96-108) mmol/L Carbon Dioxide (22-29) mmol/L Anion Gap (12-20) BUN (9-16) mg/dL Creatinine (0.5-1.4) mg/dL Estim Creat Clear Calc Estimated GFR Random Glucose (60-115) mg/dL Lactic Acid (0.5-2.0) mmol/L Calcium (8.4-10.2) mg/dL Magnesium (1.6-2.6) mg/dL Total Bilirubin (0.0-1.0) mg/dL AST (5-37) U/L ALT (0-40) U/L Alkaline Phosphatase (39-117) U/L Total Creatine Kinase (38-174) U/L Total Protein (6.5-8.0) g/dL Albumin (3.5-5.0) g/dL 03/24/25 03/24/25 03/24/25 Range/Units 20:39 20:39 20:39 WBC (4.8-10.8) X10*3/uL RBC 4.09 L (4.60-5.80) X10*6/uL Hgb 12.9 L 13.0 L (14.0-18.0) g/dl Hct 38.5 L 37.4 L (42.0-52.0) % MCV 92.1 (80.0-98.0) fL MCH (27.0-33.0) pg MCHC (31.0-36.0) g/dl RDW (11.0-16.0) % Plt Count (160-400) X10*3/uL MPV (9.4-12.4) fL Immature Gran % (Auto) (0.0-0.4) % Neut % (Auto) (45-73) % Lymph % (Auto) (20-40) % [place] % (Auto) (2-11) % Eos % (Auto) (0-4) % Baso % (Auto) (0-2) % Lymph # (Auto) (1.2-4.9) X10*3/uL [place] # (Auto) (0.1-1.2) X10*3/uL Eos # (Auto) (0.0-0.4) X10*3/uL Baso # (Auto) (0.0-0.2) X10*3/uL Abs Immat Gran (auto) (0.00-0.03) X10*3/uL Absolute Neuts (auto) (2.0-8.3) x10*3/uL Absolute Nucleated RBC (0.0-0.012) X10*3/uL Nucleated RBC % (auto) (0.0-0.2) /100WBC O2 Saturation % ABG pH at Pt Temp (7.35-7.45) ABG pCO2 at Pt Temp (32-45) mmHg ABG pO2 at Pt Temp (83-108) mmHg ABG HCO3 (22-26) mmol/L ABG Base Excess (Actual) mmol/L Sodium (135-145) mmol/L Potassium (3.3-5.1) mmol/L Chloride (96-108) mmol/L Carbon Dioxide (22-29) mmol/L Anion Gap (12-20) BUN (9-16) mg/dL Creatinine (0.5-1.4) mg/dL Estim Creat Clear Calc Estimated GFR Random Glucose (60-115) mg/dL Lactic Acid (0.5-2.0) mmol/L Calcium (8.4-10.2) mg/dL Magnesium (1.6-2.6) mg/dL Total Bilirubin (0.0-1.0) mg/dL AST (5-37) U/L ALT (0-40) U/L Alkaline Phosphatase (39-117) U/L Total Creatine Kinase (38-174) U/L Total Protein (6.5-8.0) g/dL Albumin (3.5-5.0) g/dL 03/24/25 03/24/25 03/24/25 Range/Units 20:39 20:39 20:39 WBC (4.8-10.8) X10*3/uL RBC (4.60-5.80) X10*6/uL Hgb (14.0-18.0) g/dl Hct (42.0-52.0) % MCV 91.4 (80.0-98.0) fL MCH 30.9 31.8 (27.0-33.0) pg MCHC 33.5 34.8 (31.0-36.0) g/dl RDW 14.7 (11.0-16.0) % Plt Count (160-400) X10*3/uL MPV (9.4-12.4) fL Immature Gran % (Auto) (0.0-0.4) % Neut % (Auto) (45-73) % Lymph % (Auto) (20-40) % [place] % (Auto) (2-11) % Eos % (Auto) (0-4) % Baso % (Auto) (0-2) % Lymph # (Auto) (1.2-4.9) X10*3/uL [place] # (Auto) (0.1-1.2) X10*3/uL Eos # (Auto) (0.0-0.4) X10*3/uL Baso # (Auto) (0.0-0.2) X10*3/uL Abs Immat Gran (auto) (0.00-0.03) X10*3/uL Absolute Neuts (auto) (2.0-8.3) x10*3/uL Absolute Nucleated RBC (0.0-0.012) X10*3/uL Nucleated RBC % (auto) (0.0-0.2) /100WBC O2 Saturation % ABG pH at Pt Temp (7.35-7.45) ABG pCO2 at Pt Temp (32-45) mmHg ABG pO2 at Pt Temp (83-108) mmHg ABG HCO3 (22-26) mmol/L ABG Base Excess (Actual) mmol/L Sodium (135-145) mmol/L Potassium (3.3-5.1) mmol/L Chloride (96-108) mmol/L Carbon Dioxide (22-29) mmol/L Anion Gap (12-20) BUN (9-16) mg/dL Creatinine (0.5-1.4) mg/dL Estim Creat Clear Calc Estimated GFR Random Glucose (60-115) mg/dL Lactic Acid (0.5-2.0) mmol/L Calcium (8.4-10.2) mg/dL Magnesium (1.6-2.6) mg/dL Total Bilirubin (0.0-1.0) mg/dL AST (5-37) U/L ALT (0-40) U/L Alkaline Phosphatase (39-117) U/L Total Creatine Kinase (38-174) U/L Total Protein (6.5-8.0) g/dL Albumin (3.5-5.0) g/dL 03/24/25 03/24/25 03/24/25 Range/Units 20:39 20:39 20:39 WBC (4.8-10.8) X10*3/uL RBC (4.60-5.80) X10*6/uL Hgb (14.0-18.0) g/dl Hct (42.0-52.0) % MCV (80.0-98.0) fL MCH (27.0-33.0) pg MCHC (31.0-36.0) g/dl RDW 14.6 (11.0-16.0) % Plt Count 280 271 (160-400) X10*3/uL MPV 9.7 9.6 (9.4-12.4) fL Immature Gran % (Auto) 0.6 H (0.0-0.4) % Neut % (Auto) (45-73) % Lymph % (Auto) (20-40) % [place] % (Auto) (2-11) % Eos % (Auto) (0-4) % Baso % (Auto) (0-2) % Lymph # (Auto) (1.2-4.9) X10*3/uL [place] # (Auto) (0.1-1.2) X10*3/uL Eos # (Auto) (0.0-0.4) X10*3/uL Baso # (Auto) (0.0-0.2) X10*3/uL Abs Immat Gran (auto) (0.00-0.03) X10*3/uL Absolute Neuts (auto) (2.0-8.3) x10*3/uL Absolute Nucleated RBC (0.0-0.012) X10*3/uL Nucleated RBC % (auto) (0.0-0.2) /100WBC O2 Saturation % ABG pH at Pt Temp (7.35-7.45) ABG pCO2 at Pt Temp (32-45) mmHg ABG pO2 at Pt Temp (83-108) mmHg ABG HCO3 (22-26) mmol/L ABG Base Excess (Actual) mmol/L Sodium (135-145) mmol/L Potassium (3.3-5.1) mmol/L Chloride (96-108) mmol/L Carbon Dioxide (22-29) mmol/L Anion Gap (12-20) BUN (9-16) mg/dL Creatinine (0.5-1.4) mg/dL Estim Creat Clear Calc Estimated GFR Random Glucose (60-115) mg/dL Lactic Acid (0.5-2.0) mmol/L Calcium (8.4-10.2) mg/dL Magnesium (1.6-2.6) mg/dL Total Bilirubin (0.0-1.0) mg/dL AST (5-37) U/L ALT (0-40) U/L Alkaline Phosphatase (39-117) U/L Total Creatine Kinase (38-174) U/L Total Protein (6.5-8.0) g/dL Albumin (3.5-5.0) g/dL 03/24/25 03/24/25 03/24/25 Range/Units 20:39 20:39 20:39 WBC (4.8-10.8) X10*3/uL RBC (4.60-5.80) X10*6/uL Hgb (14.0-18.0) g/dl Hct (42.0-52.0) % MCV (80.0-98.0) fL MCH (27.0-33.0) pg MCHC (31.0-36.0) g/dl RDW (11.0-16.0) % Plt Count (160-400) X10*3/uL MPV (9.4-12.4) fL Immature Gran % (Auto) 0.8 H (0.0-0.4) % Neut % (Auto) 80.9 H 80.3 H (45-73) % Lymph % (Auto) 10.8 L 11.0 L (20-40) % [place] % (Auto) 6.8 (2-11) % Eos % (Auto) (0-4) % Baso % (Auto) (0-2) % Lymph # (Auto) (1.2-4.9) X10*3/uL [place] # (Auto) (0.1-1.2) X10*3/uL Eos # (Auto) (0.0-0.4) X10*3/uL Baso # (Auto) (0.0-0.2) X10*3/uL Abs Immat Gran (auto) (0.00-0.03) X10*3/uL Absolute Neuts (auto) (2.0-8.3) x10*3/uL Absolute Nucleated RBC (0.0-0.012) X10*3/uL Nucleated RBC % (auto) (0.0-0.2) /100WBC O2 Saturation % ABG pH at Pt Temp (7.35-7.45) ABG pCO2 at Pt Temp (32-45) mmHg ABG pO2 at Pt Temp (83-108) mmHg ABG HCO3 (22-26) mmol/L ABG Base Excess (Actual) mmol/L Sodium (135-145) mmol/L Potassium (3.3-5.1) mmol/L Chloride (96-108) mmol/L Carbon Dioxide (22-29) mmol/L Anion Gap (12-20) BUN (9-16) mg/dL Creatinine (0.5-1.4) mg/dL Estim Creat Clear Calc Estimated GFR Random Glucose (60-115) mg/dL Lactic Acid (0.5-2.0) mmol/L Calcium (8.4-10.2) mg/dL Magnesium (1.6-2.6) mg/dL Total Bilirubin (0.0-1.0) mg/dL AST (5-37) U/L ALT (0-40) U/L Alkaline Phosphatase (39-117) U/L Total Creatine Kinase (38-174) U/L Total Protein (6.5-8.0) g/dL Albumin (3.5-5.0) g/dL 03/24/25 03/24/25 03/24/25 Range/Units 20:39 20:39 20:39 WBC (4.8-10.8) X10*3/uL RBC (4.60-5.80) X10*6/uL Hgb (14.0-18.0) g/dl Hct (42.0-52.0) % MCV (80.0-98.0) fL MCH (27.0-33.0) pg MCHC (31.0-36.0) g/dl RDW (11.0-16.0) % Plt Count (160-400) X10*3/uL MPV (9.4-12.4) fL Immature Gran % (Auto) (0.0-0.4) % Neut % (Auto) (45-73) % Lymph % (Auto) (20-40) % [place] % (Auto) 7.0 (2-11) % Eos % (Auto) 0.5 0.6 (0-4) % Baso % (Auto) 0.4 0.3 (0-2) % Lymph # (Auto) 1.4 (1.2-4.9) X10*3/uL [place] # (Auto) (0.1-1.2) X10*3/uL Eos # (Auto) (0.0-0.4) X10*3/uL Baso # (Auto) (0.0-0.2) X10*3/uL Abs Immat Gran (auto) (0.00-0.03) X10*3/uL Absolute Neuts (auto) (2.0-8.3) x10*3/uL Absolute Nucleated RBC (0.0-0.012) X10*3/uL Nucleated RBC % (auto) (0.0-0.2) /100WBC O2 Saturation % ABG pH at Pt Temp (7.35-7.45) ABG pCO2 at Pt Temp (32-45) mmHg ABG pO2 at Pt Temp (83-108) mmHg ABG HCO3 (22-26) mmol/L ABG Base Excess (Actual) mmol/L Sodium (135-145) mmol/L Potassium (3.3-5.1) mmol/L Chloride (96-108) mmol/L Carbon Dioxide (22-29) mmol/L Anion Gap (12-20) BUN (9-16) mg/dL Creatinine (0.5-1.4) mg/dL Estim Creat Clear Calc Estimated GFR Random Glucose (60-115) mg/dL Lactic Acid (0.5-2.0) mmol/L Calcium (8.4-10.2) mg/dL Magnesium (1.6-2.6) mg/dL Total Bilirubin (0.0-1.0) mg/dL AST (5-37) U/L ALT (0-40) U/L Alkaline Phosphatase (39-117) U/L Total Creatine Kinase (38-174) U/L Total Protein (6.5-8.0) g/dL Albumin (3.5-5.0) g/dL 03/24/25 03/24/25 03/24/25 Range/Units 20:39 20:39 20:39 WBC (4.8-10.8) X10*3/uL RBC (4.60-5.80) X10*6/uL Hgb (14.0-18.0) g/dl Hct (42.0-52.0) % MCV (80.0-98.0) fL MCH (27.0-33.0) pg MCHC (31.0-36.0) g/dl RDW (11.0-16.0) % Plt Count (160-400) X10*3/uL MPV (9.4-12.4) fL Immature Gran % (Auto) (0.0-0.4) % Neut % (Auto) (45-73) % Lymph % (Auto) (20-40) % [place] % (Auto) (2-11) % Eos % (Auto) (0-4) % Baso % (Auto) (0-2) % Lymph # (Auto) 1.4 (1.2-4.9) X10*3/uL [place] # (Auto) 0.9 0.9 (0.1-1.2) X10*3/uL Eos # (Auto) 0.1 0.1 (0.0-0.4) X10*3/uL Baso # (Auto) 0.1 (0.0-0.2) X10*3/uL Abs Immat Gran (auto) (0.00-0.03) X10*3/uL Absolute Neuts (auto) (2.0-8.3) x10*3/uL Absolute Nucleated RBC (0.0-0.012) X10*3/uL Nucleated RBC % (auto) (0.0-0.2) /100WBC O2 Saturation % ABG pH at Pt Temp (7.35-7.45) ABG pCO2 at Pt Temp (32-45) mmHg ABG pO2 at Pt Temp (83-108) mmHg ABG HCO3 (22-26) mmol/L ABG Base Excess (Actual) mmol/L Sodium (135-145) mmol/L Potassium (3.3-5.1) mmol/L Chloride (96-108) mmol/L Carbon Dioxide (22-29) mmol/L Anion Gap (12-20) BUN (9-16) mg/dL Creatinine (0.5-1.4) mg/dL Estim Creat Clear Calc Estimated GFR Random Glucose (60-115) mg/dL Lactic Acid (0.5-2.0) mmol/L Calcium (8.4-10.2) mg/dL Magnesium (1.6-2.6) mg/dL Total Bilirubin (0.0-1.0) mg/dL AST (5-37) U/L ALT (0-40) U/L Alkaline Phosphatase (39-117) U/L Total Creatine Kinase (38-174) U/L Total Protein (6.5-8.0) g/dL Albumin (3.5-5.0) g/dL 03/24/25 03/24/25 03/24/25 Range/Units 20:39 20:39 20:39 WBC (4.8-10.8) X10*3/uL RBC (4.60-5.80) X10*6/uL Hgb (14.0-18.0) g/dl Hct (42.0-52.0) % MCV (80.0-98.0) fL MCH (27.0-33.0) pg MCHC (31.0-36.0) g/dl RDW (11.0-16.0) % Plt Count (160-400) X10*3/uL MPV (9.4-12.4) fL Immature Gran % (Auto) (0.0-0.4) % Neut % (Auto) (45-73) % Lymph % (Auto) (20-40) % [place] % (Auto) (2-11) % Eos % (Auto) (0-4) % Baso % (Auto) (0-2) % Lymph # (Auto) (1.2-4.9) X10*3/uL [place] # (Auto) (0.1-1.2) X10*3/uL Eos # (Auto) (0.0-0.4) X10*3/uL Baso # (Auto) 0.0 (0.0-0.2) X10*3/uL Abs Immat Gran (auto) 0.08 H 0.10 H (0.00-0.03) X10*3/uL Absolute Neuts (auto) 10.6 H 10.4 H (2.0-8.3) x10*3/uL Absolute Nucleated RBC 0.000 (0.0-0.012) X10*3/uL Nucleated RBC % (auto) (0.0-0.2) /100WBC O2 Saturation % ABG pH at Pt Temp (7.35-7.45) ABG pCO2 at Pt Temp (32-45) mmHg ABG pO2 at Pt Temp (83-108) mmHg ABG HCO3 (22-26) mmol/L ABG Base Excess (Actual) mmol/L Sodium (135-145) mmol/L Potassium (3.3-5.1) mmol/L Chloride (96-108) mmol/L Carbon Dioxide (22-29) mmol/L Anion Gap (12-20) BUN (9-16) mg/dL Creatinine (0.5-1.4) mg/dL Estim Creat Clear Calc Estimated GFR Random Glucose (60-115) mg/dL Lactic Acid (0.5-2.0) mmol/L Calcium (8.4-10.2) mg/dL Magnesium (1.6-2.6) mg/dL Total Bilirubin (0.0-1.0) mg/dL AST (5-37) U/L ALT (0-40) U/L Alkaline Phosphatase (39-117) U/L Total Creatine Kinase (38-174) U/L Total Protein (6.5-8.0) g/dL Albumin (3.5-5.0) g/dL 03/24/25 03/24/25 03/24/25 Range/Units 20:39 20:39 20:39 WBC (4.8-10.8) X10*3/uL RBC (4.60-5.80) X10*6/uL Hgb (14.0-18.0) g/dl Hct (42.0-52.0) % MCV (80.0-98.0) fL MCH (27.0-33.0) pg MCHC (31.0-36.0) g/dl RDW (11.0-16.0) % Plt Count (160-400) X10*3/uL MPV (9.4-12.4) fL Immature Gran % (Auto) (0.0-0.4) % Neut % (Auto) (45-73) % Lymph % (Auto) (20-40) % [place] % (Auto) (2-11) % Eos % (Auto) (0-4) % Baso % (Auto) (0-2) % Lymph # (Auto) (1.2-4.9) X10*3/uL [place] # (Auto) (0.1-1.2) X10*3/uL Eos # (Auto) (0.0-0.4) X10*3/uL Baso # (Auto) (0.0-0.2) X10*3/uL Abs Immat Gran (auto) (0.00-0.03) X10*3/uL Absolute Neuts (auto) (2.0-8.3) x10*3/uL Absolute Nucleated RBC 0.000 (0.0-0.012) X10*3/uL Nucleated RBC % (auto) 0.0 0.0 (0.0-0.2) /100WBC O2 Saturation % ABG pH at Pt Temp (7.35-7.45) ABG pCO2 at Pt Temp (32-45) mmHg ABG pO2 at Pt Temp (83-108) mmHg ABG HCO3 (22-26) mmol/L ABG Base Excess (Actual) mmol/L Sodium 146 H Cancelled (135-145) mmol/L Potassium 4.0 (3.3-5.1) mmol/L Chloride (96-108) mmol/L Carbon Dioxide (22-29) mmol/L Anion Gap (12-20) BUN (9-16) mg/dL Creatinine (0.5-1.4) mg/dL Estim Creat Clear Calc Estimated GFR Random Glucose (60-115) mg/dL Lactic Acid (0.5-2.0) mmol/L Calcium (8.4-10.2) mg/dL Magnesium (1.6-2.6) mg/dL Total Bilirubin (0.0-1.0) mg/dL AST (5-37) U/L ALT (0-40) U/L Alkaline Phosphatase (39-117) U/L Total Creatine Kinase (38-174) U/L Total Protein (6.5-8.0) g/dL Albumin (3.5-5.0) g/dL 03/24/25 03/24/25 03/24/25 Range/Units 20:39 20:39 20:39 WBC (4.8-10.8) X10*3/uL RBC (4.60-5.80) X10*6/uL Hgb (14.0-18.0) g/dl Hct (42.0-52.0) % MCV (80.0-98.0) fL MCH (27.0-33.0) pg MCHC (31.0-36.0) g/dl RDW (11.0-16.0) % Plt Count (160-400) X10*3/uL MPV (9.4-12.4) fL Immature Gran % (Auto) (0.0-0.4) % Neut % (Auto) (45-73) % Lymph % (Auto) (20-40) % [place] % (Auto) (2-11) % Eos % (Auto) (0-4) % Baso % (Auto) (0-2) % Lymph # (Auto) (1.2-4.9) X10*3/uL [place] # (Auto) (0.1-1.2) X10*3/uL Eos # (Auto) (0.0-0.4) X10*3/uL Baso # (Auto) (0.0-0.2) X10*3/uL Abs Immat Gran (auto) (0.00-0.03) X10*3/uL Absolute Neuts (auto) (2.0-8.3) x10*3/uL Absolute Nucleated RBC (0.0-0.012) X10*3/uL Nucleated RBC % (auto) (0.0-0.2) /100WBC O2 Saturation % ABG pH at Pt Temp (7.35-7.45) ABG pCO2 at Pt Temp (32-45) mmHg ABG pO2 at Pt Temp (83-108) mmHg ABG HCO3 (22-26) mmol/L ABG Base Excess (Actual) mmol/L Sodium (135-145) mmol/L Potassium Cancelled (3.3-5.1) mmol/L Chloride 111 H Cancelled (96-108) mmol/L Carbon Dioxide 28 Cancelled (22-29) mmol/L Anion Gap 11 L (12-20) BUN (9-16) mg/dL Creatinine (0.5-1.4) mg/dL Estim Creat Clear Calc Estimated GFR Random Glucose (60-115) mg/dL Lactic Acid (0.5-2.0) mmol/L Calcium (8.4-10.2) mg/dL Magnesium (1.6-2.6) mg/dL Total Bilirubin (0.0-1.0) mg/dL AST (5-37) U/L ALT (0-40) U/L Alkaline Phosphatase (39-117) U/L Total Creatine Kinase (38-174) U/L Total Protein (6.5-8.0) g/dL Albumin (3.5-5.0) g/dL 03/24/25 03/24/25 03/24/25 Range/Units 20:39 20:39 20:39 WBC (4.8-10.8) X10*3/uL RBC (4.60-5.80) X10*6/uL Hgb (14.0-18.0) g/dl Hct (42.0-52.0) % MCV (80.0-98.0) fL MCH (27.0-33.0) pg MCHC (31.0-36.0) g/dl RDW (11.0-16.0) % Plt Count (160-400) X10*3/uL MPV (9.4-12.4) fL Immature Gran % (Auto) (0.0-0.4) % Neut % (Auto) (45-73) % Lymph % (Auto) (20-40) % [place] % (Auto) (2-11) % Eos % (Auto) (0-4) % Baso % (Auto) (0-2) % Lymph # (Auto) (1.2-4.9) X10*3/uL [place] # (Auto) (0.1-1.2) X10*3/uL Eos # (Auto) (0.0-0.4) X10*3/uL Baso # (Auto) (0.0-0.2) X10*3/uL Abs Immat Gran (auto) (0.00-0.03) X10*3/uL Absolute Neuts (auto) (2.0-8.3) x10*3/uL Absolute Nucleated RBC (0.0-0.012) X10*3/uL Nucleated RBC % (auto) (0.0-0.2) /100WBC O2 Saturation % ABG pH at Pt Temp (7.35-7.45) ABG pCO2 at Pt Temp (32-45) mmHg ABG pO2 at Pt Temp (83-108) mmHg ABG HCO3 (22-26) mmol/L ABG Base Excess (Actual) mmol/L Sodium (135-145) mmol/L Potassium (3.3-5.1) mmol/L Chloride (96-108) mmol/L Carbon Dioxide (22-29) mmol/L Anion Gap Cancelled (12-20) BUN 18 H Cancelled (9-16) mg/dL Creatinine 1.27 Cancelled (0.5-1.4) mg/dL Estim Creat Clear Calc 89.1 Estimated GFR Random Glucose (60-115) mg/dL Lactic Acid (0.5-2.0) mmol/L Calcium (8.4-10.2) mg/dL Magnesium (1.6-2.6) mg/dL Total Bilirubin (0.0-1.0) mg/dL AST (5-37) U/L ALT (0-40) U/L Alkaline Phosphatase (39-117) U/L Total Creatine Kinase (38-174) U/L Total Protein (6.5-8.0) g/dL Albumin (3.5-5.0) g/dL 03/24/25 03/24/25 03/24/25 Range/Units 20:39 20:39 20:39 WBC (4.8-10.8) X10*3/uL RBC (4.60-5.80) X10*6/uL Hgb (14.0-18.0) g/dl Hct (42.0-52.0) % MCV (80.0-98.0) fL MCH (27.0-33.0) pg MCHC (31.0-36.0) g/dl RDW (11.0-16.0) % Plt Count (160-400) X10*3/uL MPV (9.4-12.4) fL Immature Gran % (Auto) (0.0-0.4) % Neut % (Auto) (45-73) % Lymph % (Auto) (20-40) % [place] % (Auto) (2-11) % Eos % (Auto) (0-4) % Baso % (Auto) (0-2) % Lymph # (Auto) (1.2-4.9) X10*3/uL [place] # (Auto) (0.1-1.2) X10*3/uL Eos # (Auto) (0.0-0.4) X10*3/uL Baso # (Auto) (0.0-0.2) X10*3/uL Abs Immat Gran (auto) (0.00-0.03) X10*3/uL Absolute Neuts (auto) (2.0-8.3) x10*3/uL Absolute Nucleated RBC (0.0-0.012) X10*3/uL Nucleated RBC % (auto) (0.0-0.2) /100WBC O2 Saturation % ABG pH at Pt Temp (7.35-7.45) ABG pCO2 at Pt Temp (32-45) mmHg ABG pO2 at Pt Temp (83-108) mmHg ABG HCO3 (22-26) mmol/L ABG Base Excess (Actual) mmol/L Sodium (135-145) mmol/L Potassium (3.3-5.1) mmol/L Chloride (96-108) mmol/L Carbon Dioxide (22-29) mmol/L Anion Gap (12-20) BUN (9-16) mg/dL Creatinine (0.5-1.4) mg/dL Estim Creat Clear Calc Cancelled Estimated GFR > 60 Cancelled Random Glucose 103 Cancelled (60-115) mg/dL Lactic Acid 1.3 (0.5-2.0) mmol/L Calcium 9.0 D (8.4-10.2) mg/dL Magnesium (1.6-2.6) mg/dL Total Bilirubin (0.0-1.0) mg/dL AST (5-37) U/L ALT (0-40) U/L Alkaline Phosphatase (39-117) U/L Total Creatine Kinase (38-174) U/L Total Protein (6.5-8.0) g/dL Albumin (3.5-5.0) g/dL 03/24/25 03/24/25 03/24/25 Range/Units 20:39 20:39 20:39 WBC (4.8-10.8) X10*3/uL RBC (4.60-5.80) X10*6/uL Hgb (14.0-18.0) g/dl Hct (42.0-52.0) % MCV (80.0-98.0) fL MCH (27.0-33.0) pg MCHC (31.0-36.0) g/dl RDW (11.0-16.0) % Plt Count (160-400) X10*3/uL MPV (9.4-12.4) fL Immature Gran % (Auto) (0.0-0.4) % Neut % (Auto) (45-73) % Lymph % (Auto) (20-40) % [place] % (Auto) (2-11) % Eos % (Auto) (0-4) % Baso % (Auto) (0-2) % Lymph # (Auto) (1.2-4.9) X10*3/uL [place] # (Auto) (0.1-1.2) X10*3/uL Eos # (Auto) (0.0-0.4) X10*3/uL Baso # (Auto) (0.0-0.2) X10*3/uL Abs Immat Gran (auto) (0.00-0.03) X10*3/uL Absolute Neuts (auto) (2.0-8.3) x10*3/uL Absolute Nucleated RBC (0.0-0.012) X10*3/uL Nucleated RBC % (auto) (0.0-0.2) /100WBC O2 Saturation % ABG pH at Pt Temp (7.35-7.45) ABG pCO2 at Pt Temp (32-45) mmHg ABG pO2 at Pt Temp (83-108) mmHg ABG HCO3 (22-26) mmol/L ABG Base Excess (Actual) mmol/L Sodium (135-145) mmol/L Potassium (3.3-5.1) mmol/L Chloride (96-108) mmol/L Carbon Dioxide (22-29) mmol/L Anion Gap (12-20) BUN (9-16) mg/dL Creatinine (0.5-1.4) mg/dL Estim Creat Clear Calc Estimated GFR Random Glucose (60-115) mg/dL Lactic Acid (0.5-2.0) mmol/L Calcium Cancelled (8.4-10.2) mg/dL Magnesium 3.3 H Cancelled (1.6-2.6) mg/dL Total Bilirubin 0.5 Cancelled (0.0-1.0) mg/dL AST 53 H (5-37) U/L ALT (0-40) U/L Alkaline Phosphatase (39-117) U/L Total Creatine Kinase (38-174) U/L Total Protein (6.5-8.0) g/dL Albumin (3.5-5.0) g/dL 03/24/25 03/24/25 03/24/25 Range/Units 20:39 20:39 20:39 WBC (4.8-10.8) X10*3/uL RBC (4.60-5.80) X10*6/uL Hgb (14.0-18.0) g/dl Hct (42.0-52.0) % MCV (80.0-98.0) fL MCH (27.0-33.0) pg MCHC (31.0-36.0) g/dl RDW (11.0-16.0) % Plt Count (160-400) X10*3/uL MPV (9.4-12.4) fL Immature Gran % (Auto) (0.0-0.4) % Neut % (Auto) (45-73) % Lymph % (Auto) (20-40) % [place] % (Auto) (2-11) % Eos % (Auto) (0-4) % Baso % (Auto) (0-2) % Lymph # (Auto) (1.2-4.9) X10*3/uL [place] # (Auto) (0.1-1.2) X10*3/uL Eos # (Auto) (0.0-0.4) X10*3/uL Baso # (Auto) (0.0-0.2) X10*3/uL Abs Immat Gran (auto) (0.00-0.03) X10*3/uL Absolute Neuts (auto) (2.0-8.3) x10*3/uL Absolute Nucleated RBC (0.0-0.012) X10*3/uL Nucleated RBC % (auto) (0.0-0.2) /100WBC O2 Saturation % ABG pH at Pt Temp (7.35-7.45) ABG pCO2 at Pt Temp (32-45) mmHg ABG pO2 at Pt Temp (83-108) mmHg ABG HCO3 (22-26) mmol/L ABG Base Excess (Actual) mmol/L Sodium (135-145) mmol/L Potassium (3.3-5.1) mmol/L Chloride (96-108) mmol/L Carbon Dioxide (22-29) mmol/L Anion Gap (12-20) BUN (9-16) mg/dL Creatinine (0.5-1.4) mg/dL Estim Creat Clear Calc Estimated GFR Random Glucose (60-115) mg/dL Lactic Acid (0.5-2.0) mmol/L Calcium (8.4-10.2) mg/dL Magnesium (1.6-2.6) mg/dL Total Bilirubin (0.0-1.0) mg/dL AST Cancelled (5-37) U/L ALT 40 Cancelled (0-40) U/L Alkaline Phosphatase 59 Cancelled (39-117) U/L Total Creatine Kinase 1430 H (38-174) U/L Total Protein 6.8 (6.5-8.0) g/dL Albumin (3.5-5.0) g/dL 03/24/25 03/24/25 Range/Units 20:39 20:39 WBC (4.8-10.8) X10*3/uL RBC (4.60-5.80) X10*6/uL Hgb (14.0-18.0) g/dl Hct (42.0-52.0) % MCV (80.0-98.0) fL MCH (27.0-33.0) pg MCHC (31.0-36.0) g/dl RDW (11.0-16.0) % Plt Count (160-400) X10*3/uL MPV (9.4-12.4) fL Immature Gran % (Auto) (0.0-0.4) % Neut % (Auto) (45-73) % Lymph % (Auto) (20-40) % [place] % (Auto) (2-11) % Eos % (Auto) (0-4) % Baso % (Auto) (0-2) % Lymph # (Auto) (1.2-4.9) X10*3/uL [place] # (Auto) (0.1-1.2) X10*3/uL Eos # (Auto) (0.0-0.4) X10*3/uL Baso # (Auto) (0.0-0.2) X10*3/uL Abs Immat Gran (auto) (0.00-0.03) X10*3/uL Absolute Neuts (auto) (2.0-8.3) x10*3/uL Absolute Nucleated RBC (0.0-0.012) X10*3/uL Nucleated RBC % (auto) (0.0-0.2) /100WBC O2 Saturation % ABG pH at Pt Temp (7.35-7.45) ABG pCO2 at Pt Temp (32-45) mmHg ABG pO2 at Pt Temp (83-108) mmHg ABG HCO3 (22-26) mmol/L ABG Base Excess (Actual) mmol/L Sodium (135-145) mmol/L Potassium (3.3-5.1) mmol/L Chloride (96-108) mmol/L Carbon Dioxide (22-29) mmol/L Anion Gap (12-20) BUN (9-16) mg/dL Creatinine (0.5-1.4) mg/dL Estim Creat Clear Calc Estimated GFR Random Glucose (60-115) mg/dL Lactic Acid (0.5-2.0) mmol/L Calcium (8.4-10.2) mg/dL Magnesium (1.6-2.6) mg/dL Total Bilirubin (0.0-1.0) mg/dL AST (5-37) U/L ALT (0-40) U/L Alkaline Phosphatase (39-117) U/L Total Creatine Kinase (38-174) U/L Total Protein Cancelled (6.5-8.0) g/dL Albumin 4.2 Cancelled (3.5-5.0) g/dL Independent Interpretation I performed an independent interpretation of an: CT Scan Radiology Impression Discussion of test interpretation with radiology: I have reviewed the radiologist's reading. Independent Historian Clinical information obtained from an independent historian. History obtained from or confirmed by: EMS and Other (Bj DAILY ) External Record Review External record reviewed: Inpatient record, Office record, Outpatient record, Prior outpatient labs, Prior outpatient radiology, Primary care record and Outside ED record Chronic Conditions Patient?s care impacted by: Other (see HPI ) Social Determinants Patient?s care significantly limited by Social Determinants of Health including: Inadequate housing, Low income, Alcoholism and drug addiction in family, Problems related to primary support group, Unemployment, Problems related to employment and Other Social Determinant of Health Attestation Attending Attestation: I was personally present and available for consultation in the ED. I have reviewed everything on the chart that is available and agree with the documentation provided by the MINNIE including discussion about the assessment, treatment plan and discussion. Based on medical record the care appears appropriate. Denys Burton MD [facility] Emergency Medicine Critical Care Time Critical Care Time Critical Care Time: Yes Total Critical Care Time: 60 Attestation: I attest to this time spent taking care of the patient, obtaining history, physical, reviewing labs, imaging, treatment of patients condition +/- specialist/hospitalist consult +/- procedure ED Critical Care: Authorized and Performed by: Denys Burton MD Total critical care time: Approximately 60 min Due to a high probability of clinically significant, life threatening deterioration, the patient required my highest level of preparedness to intervene emergently and I personally spent this critical care time directly and personally managing the patient. This critical care time included obtaining a history; examining the patient; pulse oximetry; ordering and review of studies; arranging urgent treatment with development of a management plan; evaluation of patient's response to treatment; frequent reassessment; and, discussions with other providers. This critical care time was performed to assess and manage the high probability of imminent, life-threatening deterioration that could result in multi-organ failure. It was exclusive of separately billable procedures and treating other patients and teaching time. Discharge Plan Discharge Clinical Impression: IVDU (intravenous drug user), Aggression, Violent behavior, Substance or medication-induced psychotic disorder, Rhabdomyolysis Patient Disposition: Admitted As Inpatient Print Language: Cymro
[2025-03-24] MEDS: SODIUM CHLORIDE 2727 ML IV (20:36)
[2025-03-24 20:42] LABS: ABG HCO3 28 mmol/L (22-26); ABG O2 % Saturation 100.0 %
[2025-03-24 20:44] LABS: MANUAL DIFF FLAG NO
[2025-03-24 20:46] LABS: Hematocrit 37.4 % (42.0-52.0); Hematocrit 38.5 % (42.0-52.0); Hemoglobin 12.9 g/dl (14.0-18.0); Hemoglobin 13.0 g/dl (14.0-18.0); Imm Gran Abs Auto 0.08 X10*3/uL (0.00-0.03); Imm Gran Abs Auto 0.10 X10*3/uL (0.00-0.03); Imm Gran Pct Auto 0.6 % (0.0-0.4); Imm Gran Pct Auto 0.8 % (0.0-0.4); Lymphocytes Absolute Auto 1.4 X10*3/uL (1.2-4.9); Mean Corpuscular HGB Conc 33.5 g/dl (31.0-36.0); Mean Corpuscular HGB Conc 34.8 g/dl (31.0-36.0); Mean Corpuscular Hemoglobin 30.9 pg (27.0-33.0); Mean Corpuscular Hemoglobin 31.8 pg (27.0-33.0); Mean Corpuscular Volume 91.4 fL (80.0-98.0); Mean Corpuscular Volume 92.1 fL (80.0-98.0); NRBC Abs Auto 0.000 X10*3/uL (0.0-0.012); NRBC Pct Auto 0.0 /100WBC (0.0-0.2); Platelet Count 271 X10*3/uL (160-400); Platelet Count 280 X10*3/uL (160-400); Red Blood Count 4.09 X10*6/uL (4.60-5.80); Red Blood Count 4.18 X10*6/uL (4.60-5.80); White Blood Count 13.0 X10*3/uL (4.8-10.8); White Blood Count 13.2 X10*3/uL (4.8-10.8)
--- OUTSIDE RECORDS SUMMARY | 2025-03-24 20:55 | XMS_ITS | Clinical Summary ---
Author Organization [facility] Facility Address [address] [address] Care Team Providers Care Assistant Facility Manager Name Role Phone Nelda Lawson MD Primary Care Provider + [phone] Social History Tobacco Use Types Packs/Day Years [...] - 19+ 3-dose series) 2008 Influenza Vaccine (#1) 2025 Pneumococcal Vaccine: Peds ( 0 to 5 Years) and At-Risk Patients (6 to 49 Years) Aged Out No longer eligible b ased on patient's age to complete this topic [place] [place] [address] [employer]ions 1,2,3 ([employer]AC[employer]) Care Teams Assistant Facility Manager Relationship Specialty Start Date End Date Nelda Lawson MD [address] [place] [id number] PCP - General Family Medicine 01/23/22
[2025-03-24 21:00] LABS: Alanine Aminotransferase 40 U/L (0-40); Albumin Level 4.2 g/dL (3.5-5.0); Alkaline Phosphatase 59 U/L (39-117); Anion Gap 11 (12-20); Aspartate Amino Transferase 53 U/L (5-37); Blood Urea Nitrogen 18 mg/dL (9-16); Calcium 9.0 mg/dL (8.4-10.2); Carbon Dioxide 28 mmol/L (22-29); Chloride 111 mmol/L (96-108); Creatinine Clr Calc Pharmacy 89.1; Estimated Glomerular Filt Rate > 60; Magnesium 3.3 mg/dL (1.6-2.6); Potassium 4.0 mmol/L (3.3-5.1); Sodium 146 mmol/L (135-145); Total Protein 6.8 g/dL (6.5-8.0)
[2025-03-24] MEDS: iohexoL 350 MG/ML 100 ML INFUS..BTL 85 ML IV (21:30)
--- NOTE | 2025-03-24 21:49 | PM.CCHP ---
History of Present Illness Date of Service: 03/24/25 Attending physician on admission: Phill Us Chief Complaint: Erratic behavior ?The patient is a 34-year-old male with a past medical history of IV drug abuse, hepatitis-C and recently release from? incarceration who presented to the emergency department via ambulance accompanied by police and EMS with erratic behavior.? According to EMS patient?s neighbors called police after patient was noted to be running in and out of the ?wood?, hallucinating and yelling. He was found down near his house in a wooded area.? He was also noted to have anabolic steroids injections with him and other drugs paraphernalia. .? ?On arrival to the emergency department the patient is extremely combative,? biting,? and attempting to hit multiple staff members.? Despite multiple sedative agents, the patient required emergent intubation for airway protection and sedation.? ?Laboratory data was significant for WBC 13, sodium 146, BUN 18, creatinine 1.27, phos 1, CK 14 30 ?ABG post intubation:? 7.51/35/206/28 IMAGING:? Head/ Cervical spine CT:? no acute findings? Chest CT:? bibasilar dependent subsegmental atelectasis,? concerning aspiration event. ED course:? ?Patient received diazepam 10 mg, total of 15 of Haldol IM, IM Benadryl 50 mg, 200 MG og ketamine IM,? empiric dose of Zosyn, and started on 30 mL/kg per mL bolus. Review of Systems Review of Systems: Yes unobtainable due to endotracheal tube PMFSH Past Medical History Medical History Hepatitis C IVDU (intravenous drug user) PTSD (post-traumatic stress disorder) Anxiety Anxiety Social History Social History Household Members: Unknown / Unable to assess Housing: Unknown / Unable to assess Do you presently have visiting nurse or other home services: No Alcohol intake: current Alcohol intake frequency: does not drink Comment: counts correct Patient Tobacco Use Status: Tobacco use Unknown Tobacco use type: Cigarette e-Cigarette/Vaping Use: Currently Using Second Hand Smoke Exposure: No Substance Use Type: Marijuana Currently Displaying Signs/Symptoms of Drug Intoxication Withdrawal: No Advance Directives: No Advance Directives Information Provided: No Nutrition Risks: On aspiration precautions Current occupational status: student Meds Allergies Allergy/AdvReac Type Severity Reaction Status Date / Time Unable to Assess Allergy Verified 03/24/25 21:14 Active Medications: Current Medications Chlorhexidine Gluconate (Chlorhexidine Gluc Oral Rinse 15 Ml Mouthwash) 15 ml BUCCAL Q8H [facility] Heparin Sodium (Porcine) (Heparin Sodium,Porcine 5,000 Unit/Ml Vial) 5,000 unit SUBCUT Q8H [facility] Dexmedetomidine HCl (Precedex) 400 mcg in 100 mls @ 0 mls/hr IVCONT .Q0M [facility]; Protocol Last Titration: 03/24/25 21:02 Dose: Infused Fentanyl (Sublimaze/Ns) 1,000 mcg in 100 mls @ 0 mls/hr IVCONT .Q0M [facility]; Protocol Last Titration: 03/24/25 20:10 Dose: 50 mcg/hr, 5 mls/hr Propofol (Diprivan) 1,000 mg in 100 mls @ 0 mls/hr IVCONT .Q0M [facility]; Protocol Last Titration: 03/24/25 21:18 Dose: 40 mcg/kg/min, 21.82 mls/hr Norepinephrine Bitartrate (Levophed) 8 mg in 250 mls @ 0 mls/hr IVCONT .Q0M [facility]; Protocol Vancomycin HCl 1,250 mg/ (Sodium Chloride) 250 mls @ 166.667 mls/hr IV ONCE ONE Stop: 03/24/25 22:07 Lactated Ringer's (Lr) 1,000 mls @ 150 mls/hr IVCONT .Q6H40M [facility] Potassium Phosphate (Kphos) 15 mmol in 250 mls @ 62.5 mls/hr IV Q4H [facility] Stop: 03/25/25 05:44 Piperacillin Sod/Tazobactam (Sod 4.5 gm/ Sodium Chloride) 100 mls @ 200 mls/hr IV Q6H [facility] Naloxone HCl (Naloxone Hcl 0.4 Mg/Ml Vial) 0.2 mg IVPUSH Q2M PRN PRN Reason: Excessive sedation or RR < 8 Pantoprazole Sodium (Pantoprazole Sodium 40 Mg/10 Ml Vial) 40 mg IVPUSH DAILY@0630 [facility] Home Medications ?Medication ?Instructions ?Recorded ?Confirmed ?Last Taken ?Type methadone 10 mg/mL oral concentrate 150 mg PO DAILY 10/06/24 10/06/24 10/04/24 History Physical Exam Exam: Exam: ?General: Patient intubated ?HEENT:? Head is normocephalic, atraumatic, pupils equal round reactive to light accommodation bilaterally.? Buccal mucosa is dry, Neck is supple ?Cardiac:? Clear S1-S2, no murmurs rubs or gallops. ?Pulmonary:? Diminished at bases no wheezes, rales or rhonchi. ?Abdomen:? ?Abdomen soft, non-tender, non-distended. Normal bowel sounds. No pulsatile mass. No hepatosplenomegaly. ?Musculoskeletal:? Moving all 4 extremities randomly and to pain appropiately.? The strength is 5/5 bilaterally and throughout all 4 extremities.? Gait not assessed at this point. ?Neurologic:? cranial nerves 2-12 are grossly intact.? No focal deficits noted.Motor strength as above.?? ?Skin:? Multiple skin lacerations on bilateral lower extremity. Ecchymosis throughout. Drug Track gamez in bilateral upper extremity Vascular:? 2+ pulses upper and lower extremities distally.? Vital Signs: Vital Signs: Last Vital Signs Temp 99.8 F 03/24/25 21:03 FiO2 100 03/24/25 20:25 BMI result Body Mass Index 27.2 Results Labs 03/25/25 05:24 03/25/25 05:24 Labs: Laboratory Results - last 24 hr 03/24/25 03/24/25 03/24/25 20:37 20:39 20:39 MCV 92.1 91.4 MCH 30.9 MCHC RDW Plt Count MPV Immature Gran % (Auto) Neut % (Auto) Lymph % (Auto) Butts % (Auto) Eos % (Auto) Baso % (Auto) Lymph # (Auto) Butts # (Auto) Eos # (Auto) Baso # (Auto) Abs Immat Gran (auto) Absolute Neuts (auto) Absolute Nucleated RBC Nucleated RBC % (auto) O2 Saturation 100.0 ABG pH at Pt Temp 7.51 H ABG pCO2 at Pt Temp 35 ABG pO2 at Pt Temp 206 H ABG HCO3 28 H ABG Base Excess (Actual) 6.0 Anion Gap Estim Creat Clear Calc Estimated GFR Random Glucose Lactic Acid Calcium Phosphorus Magnesium Total Bilirubin AST ALT Alkaline Phosphatase Total Creatine Kinase Total Protein Albumin 03/24/25 03/24/25 03/24/25 20:39 20:39 20:39 MCV MCH 31.8 MCHC 33.5 34.8 RDW 14.7 14.6 Plt Count 280 MPV Immature Gran % (Auto) Neut % (Auto) Lymph % (Auto) Butts % (Auto) Eos % (Auto) Baso % (Auto) Lymph # (Auto) Butts # (Auto) Eos # (Auto) Baso # (Auto) Abs Immat Gran (auto) Absolute Neuts (auto) Absolute Nucleated RBC Nucleated RBC % (auto) O2 Saturation ABG pH at Pt Temp ABG pCO2 at Pt Temp ABG pO2 at Pt Temp ABG HCO3 ABG Base Excess (Actual) Anion Gap Estim Creat Clear Calc Estimated GFR Random Glucose Lactic Acid Calcium Phosphorus Magnesium Total Bilirubin AST ALT Alkaline Phosphatase Total Creatine Kinase Total Protein Albumin 03/24/25 03/24/25 03/24/25 20:39 20:39 20:39 MCV MCH MCHC RDW Plt Count 271 MPV 9.7 9.6 Immature Gran % (Auto) 0.6 H 0.8 H Neut % (Auto) 80.9 H Lymph % (Auto) Butts % (Auto) Eos % (Auto) Baso % (Auto) Lymph # (Auto) Butts # (Auto) Eos # (Auto) Baso # (Auto) Abs Immat Gran (auto) Absolute Neuts (auto) Absolute Nucleated RBC Nucleated RBC % (auto) O2 Saturation ABG pH at Pt Temp ABG pCO2 at Pt Temp ABG pO2 at Pt Temp ABG HCO3 ABG Base Excess (Actual) Anion Gap Estim Creat Clear Calc Estimated GFR Random Glucose Lactic Acid Calcium Phosphorus Magnesium Total Bilirubin AST ALT Alkaline Phosphatase Total Creatine Kinase Total Protein Albumin 03/24/25 03/24/25 03/24/25 20:39 20:39 20:39 MCV MCH MCHC RDW Plt Count MPV Immature Gran % (Auto) Neut % (Auto) 80.3 H Lymph % (Auto) 10.8 L 11.0 L Butts % (Auto) 6.8 7.0 Eos % (Auto) 0.5 Baso % (Auto) Lymph # (Auto) Butts # (Auto) Eos # (Auto) Baso # (Auto) Abs Immat Gran (auto) Absolute Neuts (auto) Absolute Nucleated RBC Nucleated RBC % (auto) O2 Saturation ABG pH at Pt Temp ABG pCO2 at Pt Temp ABG pO2 at Pt Temp ABG HCO3 ABG Base Excess (Actual) Anion Gap Estim Creat Clear Calc Estimated GFR Random Glucose Lactic Acid Calcium Phosphorus Magnesium Total Bilirubin AST ALT Alkaline Phosphatase Total Creatine Kinase Total Protein Albumin 03/24/25 03/24/25 03/24/25 20:39 20:39 20:39 MCV MCH MCHC RDW Plt Count MPV Immature Gran % (Auto) Neut % (Auto) Lymph % (Auto) Butts % (Auto) Eos % (Auto) 0.6 Baso % (Auto) 0.4 0.3 Lymph # (Auto) 1.4 1.4 Butts # (Auto) 0.9 Eos # (Auto) Baso # (Auto) Abs Immat Gran (auto) Absolute Neuts (auto) Absolute Nucleated RBC Nucleated RBC % (auto) O2 Saturation ABG pH at Pt Temp ABG pCO2 at Pt Temp ABG pO2 at Pt Temp ABG HCO3 ABG Base Excess (Actual) Anion Gap Estim Creat Clear Calc Estimated GFR Random Glucose Lactic Acid Calcium Phosphorus Magnesium Total Bilirubin AST ALT Alkaline Phosphatase Total Creatine Kinase Total Protein Albumin 03/24/25 03/24/25 03/24/25 20:39 20:39 20:39 MCV MCH MCHC RDW Plt Count MPV Immature Gran % (Auto) Neut % (Auto) Lymph % (Auto) Butts % (Auto) Eos % (Auto) Baso % (Auto) Lymph # (Auto) Butts # (Auto) 0.9 Eos # (Auto) 0.1 0.1 Baso # (Auto) 0.1 0.0 Abs Immat Gran (auto) 0.08 H Absolute Neuts (auto) Absolute Nucleated RBC Nucleated RBC % (auto) O2 Saturation ABG pH at Pt Temp ABG pCO2 at Pt Temp ABG pO2 at Pt Temp ABG HCO3 ABG Base Excess (Actual) Anion Gap Estim Creat Clear Calc Estimated GFR Random Glucose Lactic Acid Calcium Phosphorus Magnesium Total Bilirubin AST ALT Alkaline Phosphatase Total Creatine Kinase Total Protein Albumin 03/24/25 03/24/25 03/24/25 20:39 20:39 20:39 MCV MCH MCHC RDW Plt Count MPV Immature Gran % (Auto) Neut % (Auto) Lymph % (Auto) Butts % (Auto) Eos % (Auto) Baso % (Auto) Lymph # (Auto) Butts # (Auto) Eos # (Auto) Baso # (Auto) Abs Immat Gran (auto) 0.10 H Absolute Neuts (auto) 10.6 H 10.4 H Absolute Nucleated RBC 0.000 0.000 Nucleated RBC % (auto) 0.0 O2 Saturation ABG pH at Pt Temp ABG pCO2 at Pt Temp ABG pO2 at Pt Temp ABG HCO3 ABG Base Excess (Actual) Anion Gap Estim Creat Clear Calc Estimated GFR Random Glucose Lactic Acid Calcium Phosphorus Magnesium Total Bilirubin AST ALT Alkaline Phosphatase Total Creatine Kinase Total Protein Albumin 03/24/25 03/24/25 03/24/25 20:39 20:39 20:39 MCV MCH MCHC RDW Plt Count MPV Immature Gran % (Auto) Neut % (Auto) Lymph % (Auto) Butts % (Auto) Eos % (Auto) Baso % (Auto) Lymph # (Auto) Butts # (Auto) Eos # (Auto) Baso # (Auto) Abs Immat Gran (auto) Absolute Neuts (auto) Absolute Nucleated RBC Nucleated RBC % (auto) 0.0 O2 Saturation ABG pH at Pt Temp ABG pCO2 at Pt Temp ABG pO2 at Pt Temp ABG HCO3 ABG Base Excess (Actual) Anion Gap 11 L Cancelled Estim Creat Clear Calc 89.1 Cancelled Estimated GFR > 60 Random Glucose Lactic Acid Calcium Phosphorus Magnesium Total Bilirubin AST ALT Alkaline Phosphatase Total Creatine Kinase Total Protein Albumin 03/24/25 03/24/25 03/24/25 20:39 20:39 20:39 MCV MCH MCHC RDW Plt Count MPV Immature Gran % (Auto) Neut % (Auto) Lymph % (Auto) Butts % (Auto) Eos % (Auto) Baso % (Auto) Lymph # (Auto) Butts # (Auto) Eos # (Auto) Baso # (Auto) Abs Immat Gran (auto) Absolute Neuts (auto) Absolute Nucleated RBC Nucleated RBC % (auto) O2 Saturation ABG pH at Pt Temp ABG pCO2 at Pt Temp ABG pO2 at Pt Temp ABG HCO3 ABG Base Excess (Actual) Anion Gap Estim Creat Clear Calc Estimated GFR Cancelled Random Glucose 103 Cancelled Lactic Acid 1.3 Calcium 9.0 D Cancelled Phosphorus 1.0 L* Magnesium 3.3 H Total Bilirubin AST ALT Alkaline Phosphatase Total Creatine Kinase Total Protein Albumin 03/24/25 03/24/25 03/24/25 20:39 20:39 20:39 MCV MCH MCHC RDW Plt Count MPV Immature Gran % (Auto) Neut % (Auto) Lymph % (Auto) Butts % (Auto) Eos % (Auto) Baso % (Auto) Lymph # (Auto) Butts # (Auto) Eos # (Auto) Baso # (Auto) Abs Immat Gran (auto) Absolute Neuts (auto) Absolute Nucleated RBC Nucleated RBC % (auto) O2 Saturation ABG pH at Pt Temp ABG pCO2 at Pt Temp ABG pO2 at Pt Temp ABG HCO3 ABG Base Excess (Actual) Anion Gap Estim Creat Clear Calc Estimated GFR Random Glucose Lactic Acid Calcium Phosphorus Magnesium Cancelled Total Bilirubin 0.5 Cancelled AST 53 H Cancelled ALT 40 Alkaline Phosphatase Total Creatine Kinase Total Protein Albumin 03/24/25 03/24/25 03/24/25 20:39 20:39 20:39 MCV MCH MCHC RDW Plt Count MPV Immature Gran % (Auto) Neut % (Auto) Lymph % (Auto) Butts % (Auto) Eos % (Auto) Baso % (Auto) Lymph # (Auto) Butts # (Auto) Eos # (Auto) Baso # (Auto) Abs Immat Gran (auto) Absolute Neuts (auto) Absolute Nucleated RBC Nucleated RBC % (auto) O2 Saturation ABG pH at Pt Temp ABG pCO2 at Pt Temp ABG pO2 at Pt Temp ABG HCO3 ABG Base Excess (Actual) Anion Gap Estim Creat Clear Calc Estimated GFR Random Glucose Lactic Acid Calcium Phosphorus Magnesium Total Bilirubin AST ALT Cancelled Alkaline Phosphatase 59 Cancelled Total Creatine Kinase 1430 H Total Protein 6.8 Cancelled Albumin 4.2 03/24/25 20:39 MCV MCH MCHC RDW Plt Count MPV Immature Gran % (Auto) Neut % (Auto) Lymph % (Auto) Butts % (Auto) Eos % (Auto) Baso % (Auto) Lymph # (Auto) Butts # (Auto) Eos # (Auto) Baso # (Auto) Abs Immat Gran (auto) Absolute Neuts (auto) Absolute Nucleated RBC Nucleated RBC % (auto) O2 Saturation ABG pH at Pt Temp ABG pCO2 at Pt Temp ABG pO2 at Pt Temp ABG HCO3 ABG Base Excess (Actual) Anion Gap Estim Creat Clear Calc Estimated GFR Random Glucose Lactic Acid Calcium Phosphorus Magnesium Total Bilirubin AST ALT Alkaline Phosphatase Total Creatine Kinase Total Protein Albumin Cancelled Assessment and Plan (1) IVDU (intravenous drug user): Status: Acute (2) Hepatitis C: Status: Acute (3) Toxic encephalopathy: Status: Acute (4) Hypotension: Status: Acute (5) ROWAN (acute kidney injury): Status: Acute (6) Rhabdomyolysis: Status: Acute (7) Aspiration into airway: Status: Acute (8) Sepsis: Status: Acute Plan 34-year-old male with a past medical history of IV drug abuse? and hepatitis-C admitted to ICU for toxic encephalopathy requiring mechanical ventilation Neuro:?? ?Toxic encephalopathy:? likely from drug induced psychosis,? patient has history of IV drug abuse,? released from incarceration x 1 day ago.? Urine toxicology positive for cocaine and opiates. ? Patient is now intubated.? Wean off ventilator as tolerated.? Monitor signs for? opiate withdrawal Cardiac:?? ?Hypotension:? hypotension related to sedation for intubation,? no evidence of severe sepsis. Lactic is negative.? Pulmonary:? ?Aspiration:? ? patient extremely agitated/ encephalopathy requiring intubation for? safety.? Chest CT noted to have? signs of aspiration event.? This is likely due to toxic encephalopathy.? Received Zosyn in the emergency department, Will continue.? No evidence of septic shock.? Wean off ventilator as tolerated.? Renal:? ?Rhabdomyolysis:? CK was noted to be elevated, patient was found? down,? unsure how long patient was out in the elements.? No acute changes in EKG. Urine output apropiate. Will cont fluid hydration. Trend CK? ROWAN:? nonoliguric,? due to hypoperfusion /rhabdomyolysis.? Received appropriate hydration in the emergency department, we will continue with continuous fluids.? Trend renal indices and I?s and O?s Endo:? ??No acute issues GI:?? ?No acute issues ID:? ?No acute issues Heme/Onc:? ?leukocytosis/? aspiration:? no evidence of severe septic shock.? Patient has had aspiration event during intubation, covered with Zosyn in the emergency department.? Due to history of substance abuse we will give an empiric dose of vancomycin.? Blood cultures obtained in the emergency department.? Urine studies pending.? Psych: substance abuse:? history of IV drug use,? urine drug positive for cocaine opiates,fentanyl, benzos and methadone. Did reeceive fentanyl and benzos in the ED prior to urine collection. Will consult addiction med when pt is extubated. Resume methadone? Miscellaneous: ? no acute issues Prophylaxis:? subQ heparin/? IV Protonix ? Critical care time:? X 75 minutes of critical care time Code? status:? FULL CODE? I called Lori Ash who listed as patient spouse in the chart, she states she actively has a restraining order against the patient, but is okay to stay as emergency contact as of right now. Lori advises to call Katty (patient friend/mentor) at [phone]. I called Katty, and informed him of pt condition. He will come visit patient tomorrow?
--- NOTE | 2025-03-24 21:56 | PC.NURSE ---
late entry. pt arrived via [facility] ems with [employer] police escort cuffed to the stretcher d/t erratic/aggressive behavior. per ems/pd call was made by neighbor who reported patient was outside of home in the backyard/[facility] area shirtless yelling/hallucinating. once PD got there the patient became aggressive/combative with PD and EMS was called and patient was transported to ED d/t hallucinations. patient was yelling on arrival, yelling about a dog in the corner, etc. profusely sweating. Geneva SOLANO at bedside on arrival and gave verbal order for 5mg IM Valium, 5mg IM Haldol, 50mg IM Benadryl which was administered at 1900 prior to transferring pt onto ED stretcher. upon transferring patient placed in physical restraints by security BUE & BLE. patient became very aggressive while attempting to obtain BP and started thrashing in stretcher needing multiple security guards, staff and PD to hold patient down. following meds given per Geneva SOLANO verbal: 1906 5mg Haldol IM 1909 5mg Haldol IM 1915 100mg Ketamine IM 1916 100mg Ketamine IM 1923 4mg Midazolam IM respiratory at bedside. at that time iv established to LUE after multiple attempts and plan to intubate. Geneva SOLANO and Micheal GARSIA at bedside as well as RT. 1935 50mg IVP Rocuronium given. 1937 intubated 21 @lip 7.5 tube. sats 96% HR 168. 1942 precedex drip started at 1mcg/kg/hr. 1943 Fentanyl drip started at 25mcg/hr. verbal order from Geneva SOLANO to place barker; temp sensing barker inserted and temp was 102F. ice packs were on patient, switched over to cooling blanket and suggested to XIOMARA for IV tylenol. 2nd access to RUE. 1999 physical restraints removed and nonbehaivoral soft restraints placed. 2009 patient is bucking the vent, opening eyes and moving. precedex drip and fentanyl drip increased. verbal order from Geneva SOLANO for 25mg Rocuronium IVP given at 2011. difficult to obtain labs/ekg at ordered time d/t events. 2101 Young FIELD TRAFFIC INVESTIGATOR at bedside and verbal to stop precedex drip, started Propofol per aug. labs obtained and upon result patient was taken to CT scan with this RN, Julianna CONSERVATION TECHNICIAN and RT. in CT patient began bucking vent and moving Propofol was increased to 40mcg/kg/min at 2117. then transported to ICU and care handover to Julianna HUTCHINSON approx 2134.
--- NOTE | 2025-03-24 22:14 | PHA.MEDREC ---
Pharmacy Consult ? Medication Reconciliation Pharmacy attempted to complete med rec. Pt intubated and unable to contact pt spouse at this time. Claims shows pt has not filled anything since 06/2024; will have Am team follow up in morning with spouse to see if pt taking any medications.
[2025-03-24 22:24] LABS: Appearance Urine Turbid; Glucose Urine UA Negative (Negative); PH 5.0 (5.0-9.0); Specific Gravity - Urine 1.025 (1.005-1.025); UMIC TRIGGER UACC YES
[2025-03-24] MEDS: Lactated Ringers 1,000 ML 150 ML IVCONT (22:26)
[2025-03-24] MEDS: Chlorhexidine Gluc Oral Rinse 15 ML MOUTHWASH BUCCAL (22:26)
[2025-03-24] MEDS: Potassium Phosphate/NS 15 MMOL/250 ML PLAST..BAG 62.5 MMOL IV (22:27)
[2025-03-24 22:34] LABS: Cannabinoid Screen Urine POSITIVE (Not Detect)
[2025-03-24 22:41] LABS: NT Pro B Type Natriuretic Pept 110.6 pg/mL (<300); Troponin-I High Sensitivity 41.9 ng/L (<3.5-35.0)
[2025-03-24 23:01] LABS: ABG Refer to POC result
[2025-03-24 23:20] LABS: Venous Blood Gas Refer to POC result
[2025-03-24 23:25] LABS: VBG HCO3 23 mmol/L (22-26); VBG O2 % Saturation 100.0 %
[2025-03-25] VITALS (33 sets, daily range): BP systolic 97–133; BP diastolic 45–72; PULSE 59–77; RESP 13–18; TEMP 31–36.9; O2SAT 94–99; BMI 29.1
[2025-03-25] MEDS: Potassium Phosphate/NS 15 MMOL/250 ML PLAST..BAG 62.5 MMOL IV (03:11)
[2025-03-25] MEDS: Lactated Ringers 1,000 ML 200 ML IVCONT ×3 (03:13→14:05)
--- NOTE | 2025-03-25 03:33 | HO.SKINPHOTO ---
Addendum entered by Julianna Ram RN 03/25/25 04:14: Location: Left great toe and left lateral ankle abrasions Location: Right great toe laceration Location: Left great toe abrasion Original Note: Location: Rash to left buttock; coccyx reddened but blanchable
--- NOTE | 2025-03-25 03:40 | PC.ADMIT ---
Pt admitted to ICU from ED at approx 2130. On initial assessment- pt sedated on propofol and fentanyl infusions. RASS -3/-4 with intermittent emergence and agitation; not following commands. Afebrile. NSR on tele, HR 60s. Levophed infusion initiated and titrated to maintain MAP >65. IV fluids and electrolytes infusing per AUG. ETT #7.5 at 23 cm at lip. On VCV; FiO2 titrated down as tolerated. Occasional breath stacking, but overall synchronous with vent. NPO at this time. No BM. Indwelling urinary catheter in place; UOP as charted, Skin overall intact; IV injection sites noted to BUE, possible rash to L buttock, and open areas to both feet. Repositioned q2h with pillows. Bed locked in lowest position with alarm on. Pt's friend/mentor, Katty, updated on pt status and plan of care by ISH Ruvalcaba. See EMR/flowsheet for further details.
--- NOTE | 2025-03-25 05:00 | ECG_ITS ---
Test Reason : QTC monitoring Blood Pressure : */* mmHG Vent. Rate : 62 BPM Atrial Rate : 62 BPM P-R Int : 178 ms QRS Dur : 100 ms QT Int : 452 ms P-R-T Axes : 51 47 34 degrees QTcB Int : 458 ms Normal sinus rhythm Normal ECG When compared with ECG of 24-Mar-2025 20:22, Vent. rate has decreased by 36 bpm Referred By: Young Ruvalcaba Electronically Signed By: Shaq Fletcher
[2025-03-25 05:30] LABS: VBG HCO3 22 mmol/L (22-26); VBG O2 % Saturation 99.0 %
[2025-03-25 05:31] LABS: Venous Blood Gas Refer to POC result
[2025-03-25 05:39] LABS: MANUAL DIFF FLAG NO
[2025-03-25 05:42] LABS: Hematocrit 36.0 % (42.0-52.0); Hemoglobin 11.7 g/dl (14.0-18.0); Imm Gran Abs Auto 0.08 X10*3/uL (0.00-0.03); Imm Gran Pct Auto 0.7 % (0.0-0.4); Lymphocytes Absolute Auto 3.2 X10*3/uL (1.2-4.9); Mean Corpuscular HGB Conc 32.5 g/dl (31.0-36.0); Mean Corpuscular Hemoglobin 31.3 pg (27.0-33.0); Mean Corpuscular Volume 96.3 fL (80.0-98.0); NRBC Abs Auto 0.000 X10*3/uL (0.0-0.012); NRBC Pct Auto 0.0 /100WBC (0.0-0.2); Platelet Count 244 X10*3/uL (160-400); Red Blood Count 3.74 X10*6/uL (4.60-5.80); White Blood Count 11.4 X10*3/uL (4.8-10.8)
[2025-03-25 05:58] LABS: Alanine Aminotransferase 37 U/L (0-40); Albumin Level 3.4 g/dL (3.5-5.0); Alkaline Phosphatase 52 U/L (39-117); Anion Gap 11 (12-20); Aspartate Amino Transferase 109 U/L (5-37); Blood Urea Nitrogen 18 mg/dL (9-16); Calcium 7.8 mg/dL (8.4-10.2); Carbon Dioxide 22 mmol/L (22-29); Chloride 116 mmol/L (96-108); Creatinine Clr Calc Pharmacy 102.2; Estimated Glomerular Filt Rate > 60; Magnesium 3.1 mg/dL (1.6-2.6); Potassium 4.6 mmol/L (3.3-5.1); Sodium 144 mmol/L (135-145); Total Protein 5.7 g/dL (6.5-8.0)
--- NOTE | 2025-03-25 07:00 | CA_ITS ---
Transthoracic Echocardiogram Patient (Last, First, Middle): Angelito Gillespie, Gender: Male Date of : 1990 Age: 34 Procedure Date: 03/25/2025 Procedure Type: Transthoracic Echocardiogram Location: ICU Height: 182.88 cm Weight: 97.07 kg BSA: 2.19 m2 Heart Rate: 61 bpm BP: 103 / 45 mmHg Equity Manager: SB Referring MD: Young Ruvalcaba NP Symptoms: IV drug user Study Quality: Adequate ECG Rhythm: Sinus Conclusions: - Normal left ventricular size and systolic function. There is mildly increased left ventricular wall thickness. The visually estimated ejection fraction is between 55-60%. There is evidence of regional wall motion abnormalities. Diastolic function is normal for age. - The basal anteroseptal and mid anteroseptal segments are hypokinetic. - Mobile structure attached to the tricuspid valve leaflet. Differential include vegetation vs torn chordae. Findings Left Ventricle Normal left ventricular size and systolic function. There is mildly increased left ventricular wall thickness. The visually estimated ejection fraction is between 55-60%. There is evidence of regional wall motion abnormalities. Diastolic function is normal for age. Wall Motion Rest Echo Findings The basal anteroseptal and mid anteroseptal segments are hypokinetic. Right Ventricle Normal right ventricular cavity size and systolic function. Atria The left atrium is normal in size. The right atrium was not well visualized. Aortic Valve There is a normal trileaflet aortic valve. There is no aortic valve stenosis. There is no aortic valve regurgitation. Mitral Valve Normal mitral valve structure and function. There is no mitral valve regurgitation. There is no mitral valve stenosis. Pulmonic Valve The pulmonic valve is normal. There is no pulmonic valve regurgitation. Tricuspid Valve Normal tricuspid valve structure. There is no tricuspid valve regurgitation. Tricuspid regurgitation envelope is inadequate for calculation of right ventricular systolic pressure. Indeterminate right atrial pressure. Mobile structure attached to the tricuspid valve leaflet. Differential include vegetation vs torn chordae. Great Vessels The visualized portions of the pulmonary artery and branches are normal. Venous The inferior vena cava is dilated and does not collapse with inspiration. Pericardium/Pleural There is no evidence of pericardial effusion. Prior Study Comparison No prior study available for comparison. Measurements 2D Linear Measurements IVSd: 1.15 0.6-0.9/0.6-1.0 cm LVIDd: 5.50 3.9-5.3/4.2-5.9 cm LVIDd Index: 2.51 2.4-3.2/2.2-3.1 cm/m2 LVIDs: 3.47 2.0-3.6 cm LVPWd: 1.25 0.7-1.1 cm LA Diam: 3.90 2.7-3.8/3.0-4.0 cm LAIDs Index: 1.78 1.5-2.3 cm/m2 LV Mass: 339.73 67-162/88-224 g LV Mass Index: 155.13 43-95/49-115 g/m2 LVOT Diam: 2.40 3.0+(-)1.3 cm 2D Systolic Function EF 4C: 53.10 >55% EF 2C: 58.70 >55% EF BiP: 57.10 >55% Mitral Valve MV Pk E: 0.67 MV PK A: 0.42 MV Decel Time: 246.00 E/A: 1.60 E'Lateral: 14.60 E'Medial: 11.40 E/E' Med: 5.90 E/E' Lat: 4.60 PHT: 72.00 MVA PHT: 3.06 Decel [place]um: 2.72 Aortic Valve AoV Pk Reg: 1.43 AoV Mn Reg: 0.99 AoV VTI: 0.28 AoV Pk Grad: 8.00 Aov Mn Grad: 5.00 YVES Cont.VTI: 3.70 LVOT LVOT Pk Reg: 1.18 LVOT Mn Reg: 0.83 LVOT VTI: 0.23 LVOT Pk Grad: 6.00 LVOT Mn Grad: 4.00 LVOT Diam: 2.40 LVOT Area: 4.52 Diastolic Function MV Pk E: 0.67 MV Pk A: 0.42 E/A: 1.60 E'Medial: 11.40 E/E' Med: 5.90 E' Laterial: 14.60 E/E' Lat: 4.60 Right Ventricle TAPSE (mm): 28.20 TVS' Reg: 16.20 Tricuspid Valve TR Pk Reg: 2.26 TR Pk Grad: 20.00 Great Vessels Aorta Sinus of Valsalva: 3.10 2.0-3.5 cm Ao Asc: 3.00 2.1-3.4 cm Pulmonary Veins Pulm Vein S/D 0.70 Pulmonary Valve PV Pk Reg: 1.22 Peak PV Grad: 6.00 Updated in Other Vendor System with Status of Final Shaq Fletcher MD electronically signed on 03/25/2025 3:09:18 PM with status of Final
[2025-03-25] MEDS: Albumin Human 25 % 100 ML IV ×2 (08:10→13:24)
[2025-03-25] MEDS: 0.9 % Sodium Chloride Flush 3 ML SYRINGE IVFLUSH ×2 (08:10→15:16)
[2025-03-25] MEDS: Calcium Gluconate/NaCl,Iso-Osm 1 GM/50 ML PLAST..BAG IV ×2 (08:10→20:59)
[2025-03-25] MEDS: Chlorhexidine Gluc Oral Rinse 15 ML MOUTHWASH BUCCAL ×3 (08:11→21:00)
[2025-03-25] MEDS: Ketamine HCl/NS 50 MG/5 ML SYRINGE 100 MG IV (09:32)
--- NOTE | 2025-03-25 09:55 | MHC.CM.PN ---
Addendum entered by Deanne Goodman 03/25/25 11:14: This CM called and spoke with pts friend Katty Arriaga. Per Katty, pt lives alone at home in [place], was recently released from incarceration after 90 days related to a domestic dispute. Per Katty, pt has been getting drugs in [place] and Katty has been encouraging him to stay with his father in [place] to avoid that. He states he was recently staying with his father but they started not getting along and he went back to [place]. Per Katty pt did not want his father notified of him being here yesterday. Pts mother lives in [place]. Of note, Katty will be leaving to [facility] this upcoming Sunday, however he states he would like to help facilitate him staying in [place] with his father if able to prior to him leaving. Original Note: Pt is intubated/sedated due to aggressive/violent behavior due to drug overdose/toxic encephalopathy. This CM placed call to pts primary contact Lori, she states she has a restraining order against him and can't be in contact with him, she requests her name be removed from the pts contact information. Lori provided this CM with the name and number for pts sponsor/mentor Katty #[phone].
--- NOTE | 2025-03-25 10:21 | PM.CCPN ---
Subjective Subjective Date of Service: 03/25/25 Interval History: 34-year-old gentleman with underlying history of IV drug abuse, hepatitis-C admitted on 03/24/2025 with vegetations encephalopathy requiring intubation for airway protection secondary to need for multiple sedative drips. On ER evaluation patient also with acute kidney injury with rhabdomyolysis started on IV fluid support and admitted to the intensive care. No events overnight. Still with significant breakthrough agitation despite high-dose sedative drips. Critical Care Time (minutes): 60 Physical Exam Vital Signs: Vital Signs: Last Vital Signs Temp 97.1 F 03/25/25 08:00 Pulse 68 03/25/25 10:00 Resp 15 03/25/25 10:00 BP 124/52 L 03/25/25 10:00 Pulse Ox 96 03/25/25 10:00 O2 Del Method Room Air 03/25/25 10:00 FiO2 21 03/25/25 09:00 BMI result Body Mass Index 29.1 Const: General: no acute distress and other (Sedated on ventilatory support) Eyes: Sclerae: sclerae normal Neck: Neck: Yes no lymphadenopathy, Yes trachea midline and Yes supple Resp: Auscultation: clear to auscultation bilaterally Cardio: Rate: regular rate Rhythm: regular rhythm Heart sounds: no gallops, no murmurs and no rubs GI: Palpation (GI): Soft to palpation and Other GI palpation findings present ( Nontender) Auscultation: normal bowel sounds Extrem: General: Yes no pedal edema, No clubbing and No cyanosis Objective Data Labs 03/25/25 05:24 03/25/25 05:24 Labs: Laboratory Results - last 24 hr 03/24/25 03/24/25 03/24/25 20:37 20:39 20:39 WBC 13.2 H 13.0 H RBC 4.18 L Hgb Hct MCV MCH MCHC RDW Plt Count MPV Immature Gran % (Auto) Neut % (Auto) Lymph % (Auto) [place] % (Auto) Eos % (Auto) Baso % (Auto) Lymph # (Auto) [place] # (Auto) Eos # (Auto) Baso # (Auto) Abs Immat Gran (auto) Absolute Neuts (auto) Absolute Nucleated RBC Nucleated RBC % (auto) O2 Saturation 100.0 ABG pH at Pt Temp 7.51 H ABG pCO2 at Pt Temp 35 ABG pO2 at Pt Temp 206 H ABG HCO3 28 H ABG Base Excess (Actual) 6.0 VBG pH VBG pCO2 VBG pO2 VBG HCO3 VBG O2 Saturation VBG Base Excess Sodium Potassium Chloride Carbon Dioxide Anion Gap BUN Creatinine Estim Creat Clear Calc Estimated GFR Random Glucose Lactic Acid Calcium Phosphorus Magnesium Total Bilirubin AST ALT Alkaline Phosphatase Total Creatine Kinase Troponin I High Sens NT-Pro-B Natriuret Pep Total Protein Albumin Urine Color Urine Appearance Urine pH Ur Specific [place] Urine Protein Urine Glucose (UA) Urine Ketones Urine Blood Urine Nitrite Ur Leukocyte Esterase Urine RBC Urine WBC Ur Squamous Epith Cells Urine Bacteria Hyaline Casts Urine Opiates Screen Ur Buprenorphine Scrn Ur Oxycodone Screen Urine Methadone Screen Urine Fentanyl Screen Ur Barbiturates Screen Ur Phencyclidine Scrn Ur Amphetamines Screen U Benzodiazepines Scrn Urine Cocaine Screen U Marijuana (THC) Screen 03/24/25 03/24/25 03/24/25 20:39 20:39 20:39 WBC RBC 4.09 L Hgb 12.9 L 13.0 L Hct 38.5 L 37.4 L MCV 92.1 MCH MCHC RDW Plt Count MPV Immature Gran % (Auto) Neut % (Auto) Lymph % (Auto) [place] % (Auto) Eos % (Auto) Baso % (Auto) Lymph # (Auto) [place] # (Auto) Eos # (Auto) Baso # (Auto) Abs Immat Gran (auto) Absolute Neuts (auto) Absolute Nucleated RBC Nucleated RBC % (auto) O2 Saturation ABG pH at Pt Temp ABG pCO2 at Pt Temp ABG pO2 at Pt Temp ABG HCO3 ABG Base Excess (Actual) VBG pH VBG pCO2 VBG pO2 VBG HCO3 VBG O2 Saturation VBG Base Excess Sodium Potassium Chloride Carbon Dioxide Anion Gap BUN Creatinine Estim Creat Clear Calc Estimated GFR Random Glucose Lactic Acid Calcium Phosphorus Magnesium Total Bilirubin AST ALT Alkaline Phosphatase Total Creatine Kinase Troponin I High Sens NT-Pro-B Natriuret Pep Total Protein Albumin Urine Color Urine Appearance Urine pH Ur Specific [place] Urine Protein Urine Glucose (UA) Urine Ketones Urine Blood Urine Nitrite Ur Leukocyte Esterase Urine RBC Urine WBC Ur Squamous Epith Cells Urine Bacteria Hyaline Casts Urine Opiates Screen Ur Buprenorphine Scrn Ur Oxycodone Screen Urine Methadone Screen Urine Fentanyl Screen Ur Barbiturates Screen Ur Phencyclidine Scrn Ur Amphetamines Screen U Benzodiazepines Scrn Urine Cocaine Screen U Marijuana (THC) Screen 03/24/25 03/24/25 03/24/25 20:39 20:39 20:39 WBC RBC Hgb Hct MCV 91.4 MCH 30.9 31.8 MCHC 33.5 34.8 RDW 14.7 Plt Count MPV Immature Gran % (Auto) Neut % (Auto) Lymph % (Auto) [place] % (Auto) Eos % (Auto) Baso % (Auto) Lymph # (Auto) [place] # (Auto) Eos # (Auto) Baso # (Auto) Abs Immat Gran (auto) Absolute Neuts (auto) Absolute Nucleated RBC Nucleated RBC % (auto) O2 Saturation ABG pH at Pt Temp ABG pCO2 at Pt Temp ABG pO2 at Pt Temp ABG HCO3 ABG Base Excess (Actual) VBG pH VBG pCO2 VBG pO2 VBG HCO3 VBG O2 Saturation VBG Base Excess Sodium Potassium Chloride Carbon Dioxide Anion Gap BUN Creatinine Estim Creat Clear Calc Estimated GFR Random Glucose Lactic Acid Calcium Phosphorus Magnesium Total Bilirubin AST ALT Alkaline Phosphatase Total Creatine Kinase Troponin I High Sens NT-Pro-B Natriuret Pep Total Protein Albumin Urine Color Urine Appearance Urine pH Ur Specific [place] Urine Protein Urine Glucose (UA) Urine Ketones Urine Blood Urine Nitrite Ur Leukocyte Esterase Urine RBC Urine WBC Ur Squamous Epith Cells Urine Bacteria Hyaline Casts Urine Opiates Screen Ur Buprenorphine Scrn Ur Oxycodone Screen Urine Methadone Screen Urine Fentanyl Screen Ur Barbiturates Screen Ur Phencyclidine Scrn Ur Amphetamines Screen U Benzodiazepines Scrn Urine Cocaine Screen U Marijuana (THC) Screen 03/24/25 03/24/25 03/24/25 20:39 20:39 20:39 WBC RBC Hgb Hct MCV MCH MCHC RDW 14.6 Plt Count 280 271 MPV 9.7 9.6 Immature Gran % (Auto) 0.6 H Neut % (Auto) Lymph % (Auto) [place] % (Auto) Eos % (Auto) Baso % (Auto) Lymph # (Auto) [place] # (Auto) Eos # (Auto) Baso # (Auto) Abs Immat Gran (auto) Absolute Neuts (auto) Absolute Nucleated RBC Nucleated RBC % (auto) O2 Saturation ABG pH at Pt Temp ABG pCO2 at Pt Temp ABG pO2 at Pt Temp ABG HCO3 ABG Base Excess (Actual) VBG pH VBG pCO2 VBG pO2 VBG HCO3 VBG O2 Saturation VBG Base Excess Sodium Potassium Chloride Carbon Dioxide Anion Gap BUN Creatinine Estim Creat Clear Calc Estimated GFR Random Glucose Lactic Acid Calcium Phosphorus Magnesium Total Bilirubin AST ALT Alkaline Phosphatase Total Creatine Kinase Troponin I High Sens NT-Pro-B Natriuret Pep Total Protein Albumin Urine Color Urine Appearance Urine pH Ur Specific [place] Urine Protein Urine Glucose (UA) Urine Ketones Urine Blood Urine Nitrite Ur Leukocyte Esterase Urine RBC Urine WBC Ur Squamous Epith Cells Urine Bacteria Hyaline Casts Urine Opiates Screen Ur Buprenorphine Scrn Ur Oxycodone Screen Urine Methadone Screen Urine Fentanyl Screen Ur Barbiturates Screen Ur Phencyclidine Scrn Ur Amphetamines Screen U Benzodiazepines Scrn Urine Cocaine Screen U Marijuana (THC) Screen 03/24/25 03/24/25 03/24/25 20:39 20:39 20:39 WBC RBC Hgb Hct MCV MCH MCHC RDW Plt Count MPV Immature Gran % (Auto) 0.8 H Neut % (Auto) 80.9 H 80.3 H Lymph % (Auto) 10.8 L 11.0 L [place] % (Auto) 6.8 Eos % (Auto) Baso % (Auto) Lymph # (Auto) [place] # (Auto) Eos # (Auto) Baso # (Auto) Abs Immat Gran (auto) Absolute Neuts (auto) Absolute Nucleated RBC Nucleated RBC % (auto) O2 Saturation ABG pH at Pt Temp ABG pCO2 at Pt Temp ABG pO2 at Pt Temp ABG HCO3 ABG Base Excess (Actual) VBG pH VBG pCO2 VBG pO2 VBG HCO3 VBG O2 Saturation VBG Base Excess Sodium Potassium Chloride Carbon Dioxide Anion Gap BUN Creatinine Estim Creat Clear Calc Estimated GFR Random Glucose Lactic Acid Calcium Phosphorus Magnesium Total Bilirubin AST ALT Alkaline Phosphatase Total Creatine Kinase Troponin I High Sens NT-Pro-B Natriuret Pep Total Protein Albumin Urine Color Urine Appearance Urine pH Ur Specific [place] Urine Protein Urine Glucose (UA) Urine Ketones Urine Blood Urine Nitrite Ur Leukocyte Esterase Urine RBC Urine WBC Ur Squamous Epith Cells Urine Bacteria Hyaline Casts Urine Opiates Screen Ur Buprenorphine Scrn Ur Oxycodone Screen Urine Methadone Screen Urine Fentanyl Screen Ur Barbiturates Screen Ur Phencyclidine Scrn Ur Amphetamines Screen U Benzodiazepines Scrn Urine Cocaine Screen U Marijuana (THC) Screen 03/24/25 03/24/25 03/24/25 20:39 20:39 20:39 WBC RBC Hgb Hct MCV MCH MCHC RDW Plt Count MPV Immature Gran % (Auto) Neut % (Auto) Lymph % (Auto) [place] % (Auto) 7.0 Eos % (Auto) 0.5 0.6 Baso % (Auto) 0.4 0.3 Lymph # (Auto) 1.4 [place] # (Auto) Eos # (Auto) Baso # (Auto) Abs Immat Gran (auto) Absolute Neuts (auto) Absolute Nucleated RBC Nucleated RBC % (auto) O2 Saturation ABG pH at Pt Temp ABG pCO2 at Pt Temp ABG pO2 at Pt Temp ABG HCO3 ABG Base Excess (Actual) VBG pH VBG pCO2 VBG pO2 VBG HCO3 VBG O2 Saturation VBG Base Excess Sodium Potassium Chloride Carbon Dioxide Anion Gap BUN Creatinine Estim Creat Clear Calc Estimated GFR Random Glucose Lactic Acid Calcium Phosphorus Magnesium Total Bilirubin AST ALT Alkaline Phosphatase Total Creatine Kinase Troponin I High Sens NT-Pro-B Natriuret Pep Total Protein Albumin Urine Color Urine Appearance Urine pH Ur Specific [place] Urine Protein Urine Glucose (UA) Urine Ketones Urine Blood Urine Nitrite Ur Leukocyte Esterase Urine RBC Urine WBC Ur Squamous Epith Cells Urine Bacteria Hyaline Casts Urine Opiates Screen Ur Buprenorphine Scrn Ur Oxycodone Screen Urine Methadone Screen Urine Fentanyl Screen Ur Barbiturates Screen Ur Phencyclidine Scrn Ur Amphetamines Screen U Benzodiazepines Scrn Urine Cocaine Screen U Marijuana (THC) Screen 03/24/25 03/24/25 03/24/25 20:39 20:39 20:39 WBC RBC Hgb Hct MCV MCH MCHC RDW Plt Count MPV Immature Gran % (Auto) Neut % (Auto) Lymph % (Auto) [place] % (Auto) Eos % (Auto) Baso % (Auto) Lymph # (Auto) 1.4 [place] # (Auto) 0.9 0.9 Eos # (Auto) 0.1 0.1 Baso # (Auto) 0.1 Abs Immat Gran (auto) Absolute Neuts (auto) Absolute Nucleated RBC Nucleated RBC % (auto) O2 Saturation ABG pH at Pt Temp ABG pCO2 at Pt Temp ABG pO2 at Pt Temp ABG HCO3 ABG Base Excess (Actual) VBG pH VBG pCO2 VBG pO2 VBG HCO3 VBG O2 Saturation VBG Base Excess Sodium Potassium Chloride Carbon Dioxide Anion Gap BUN Creatinine Estim Creat Clear Calc Estimated GFR Random Glucose Lactic Acid Calcium Phosphorus Magnesium Total Bilirubin AST ALT Alkaline Phosphatase Total Creatine Kinase Troponin I High Sens NT-Pro-B Natriuret Pep Total Protein Albumin Urine Color Urine Appearance Urine pH Ur Specific [place] Urine Protein Urine Glucose (UA) Urine Ketones Urine Blood Urine Nitrite Ur Leukocyte Esterase Urine RBC Urine WBC Ur Squamous Epith Cells Urine Bacteria Hyaline Casts Urine Opiates Screen Ur Buprenorphine Scrn Ur Oxycodone Screen Urine Methadone Screen Urine Fentanyl Screen Ur Barbiturates Screen Ur Phencyclidine Scrn Ur Amphetamines Screen U Benzodiazepines Scrn Urine Cocaine Screen U Marijuana (THC) Screen 03/24/25 03/24/25 03/24/25 20:39 20:39 20:39 WBC RBC Hgb Hct MCV MCH MCHC RDW Plt Count MPV Immature Gran % (Auto) Neut % (Auto) Lymph % (Auto) [place] % (Auto) Eos % (Auto) Baso % (Auto) Lymph # (Auto) [place] # (Auto) Eos # (Auto) Baso # (Auto) 0.0 Abs Immat Gran (auto) 0.08 H 0.10 H Absolute Neuts (auto) 10.6 H 10.4 H Absolute Nucleated RBC 0.000 Nucleated RBC % (auto) O2 Saturation ABG pH at Pt Temp ABG pCO2 at Pt Temp ABG pO2 at Pt Temp ABG HCO3 ABG Base Excess (Actual) VBG pH VBG pCO2 VBG pO2 VBG HCO3 VBG O2 Saturation VBG Base Excess Sodium Potassium Chloride Carbon Dioxide Anion Gap BUN Creatinine Estim Creat Clear Calc Estimated GFR Random Glucose Lactic Acid Calcium Phosphorus Magnesium Total Bilirubin AST ALT Alkaline Phosphatase Total Creatine Kinase Troponin I High Sens NT-Pro-B Natriuret Pep Total Protein Albumin Urine Color Urine Appearance Urine pH Ur Specific [place] Urine Protein Urine Glucose (UA) Urine Ketones Urine Blood Urine Nitrite Ur Leukocyte Esterase Urine RBC Urine WBC Ur Squamous Epith Cells Urine Bacteria Hyaline Casts Urine Opiates Screen Ur Buprenorphine Scrn Ur Oxycodone Screen Urine Methadone Screen Urine Fentanyl Screen Ur Barbiturates Screen Ur Phencyclidine Scrn Ur Amphetamines Screen U Benzodiazepines Scrn Urine Cocaine Screen U Marijuana (THC) Screen 03/24/25 03/24/25 03/24/25 20:39 20:39 20:39 WBC RBC Hgb Hct MCV MCH MCHC RDW Plt Count MPV Immature Gran % (Auto) Neut % (Auto) Lymph % (Auto) [place] % (Auto) Eos % (Auto) Baso % (Auto) Lymph # (Auto) [place] # (Auto) Eos # (Auto) Baso # (Auto) Abs Immat Gran (auto) Absolute Neuts (auto) Absolute Nucleated RBC 0.000 Nucleated RBC % (auto) 0.0 0.0 O2 Saturation ABG pH at Pt Temp ABG pCO2 at Pt Temp ABG pO2 at Pt Temp ABG HCO3 ABG Base Excess (Actual) VBG pH VBG pCO2 VBG pO2 VBG HCO3 VBG O2 Saturation VBG Base Excess Sodium 146 H Cancelled Potassium 4.0 Chloride Carbon Dioxide Anion Gap BUN Creatinine Estim Creat Clear Calc Estimated GFR Random Glucose Lactic Acid Calcium Phosphorus Magnesium Total Bilirubin AST ALT Alkaline Phosphatase Total Creatine Kinase Troponin I High Sens NT-Pro-B Natriuret Pep Total Protein Albumin Urine Color Urine Appearance Urine pH Ur Specific [place] Urine Protein Urine Glucose (UA) Urine Ketones Urine Blood Urine Nitrite Ur Leukocyte Esterase Urine RBC Urine WBC Ur Squamous Epith Cells Urine Bacteria Hyaline Casts Urine Opiates Screen Ur Buprenorphine Scrn Ur Oxycodone Screen Urine Methadone Screen Urine Fentanyl Screen Ur Barbiturates Screen Ur Phencyclidine Scrn Ur Amphetamines Screen U Benzodiazepines Scrn Urine Cocaine Screen U Marijuana (THC) Screen 03/24/25 03/24/25 03/24/25 20:39 20:39 20:39 WBC RBC Hgb Hct MCV MCH MCHC RDW Plt Count MPV Immature Gran % (Auto) Neut % (Auto) Lymph % (Auto) [place] % (Auto) Eos % (Auto) Baso % (Auto) Lymph # (Auto) [place] # (Auto) Eos # (Auto) Baso # (Auto) Abs Immat Gran (auto) Absolute Neuts (auto) Absolute Nucleated RBC Nucleated RBC % (auto) O2 Saturation ABG pH at Pt Temp ABG pCO2 at Pt Temp ABG pO2 at Pt Temp ABG HCO3 ABG Base Excess (Actual) VBG pH VBG pCO2 VBG pO2 VBG HCO3 VBG O2 Saturation VBG Base Excess Sodium Potassium Cancelled Chloride 111 H Cancelled Carbon Dioxide 28 Cancelled Anion Gap 11 L BUN Creatinine Estim Creat Clear Calc Estimated GFR Random Glucose Lactic Acid Calcium Phosphorus Magnesium Total Bilirubin AST ALT Alkaline Phosphatase Total Creatine Kinase Troponin I High Sens NT-Pro-B Natriuret Pep Total Protein Albumin Urine Color Urine Appearance Urine pH Ur Specific [place] Urine Protein Urine Glucose (UA) Urine Ketones Urine Blood Urine Nitrite Ur Leukocyte Esterase Urine RBC Urine WBC Ur Squamous Epith Cells Urine Bacteria Hyaline Casts Urine Opiates Screen Ur Buprenorphine Scrn Ur Oxycodone Screen Urine Methadone Screen Urine Fentanyl Screen Ur Barbiturates Screen Ur Phencyclidine Scrn Ur Amphetamines Screen U Benzodiazepines Scrn Urine Cocaine Screen U Marijuana (THC) Screen 03/24/25 03/24/25 03/24/25 20:39 20:39 20:39 WBC RBC Hgb Hct MCV MCH MCHC RDW Plt Count MPV Immature Gran % (Auto) Neut % (Auto) Lymph % (Auto) [place] % (Auto) Eos % (Auto) Baso % (Auto) Lymph # (Auto) [place] # (Auto) Eos # (Auto) Baso # (Auto) Abs Immat Gran (auto) Absolute Neuts (auto) Absolute Nucleated RBC Nucleated RBC % (auto) O2 Saturation ABG pH at Pt Temp ABG pCO2 at Pt Temp ABG pO2 at Pt Temp ABG HCO3 ABG Base Excess (Actual) VBG pH VBG pCO2 VBG pO2 VBG HCO3 VBG O2 Saturation VBG Base Excess Sodium Potassium Chloride Carbon Dioxide Anion Gap Cancelled BUN 18 H Cancelled Creatinine 1.27 Cancelled Estim Creat Clear Calc 89.1 Estimated GFR Random Glucose Lactic Acid Calcium Phosphorus Magnesium Total Bilirubin AST ALT Alkaline Phosphatase Total Creatine Kinase Troponin I High Sens NT-Pro-B Natriuret Pep Total Protein Albumin Urine Color Urine Appearance Urine pH Ur Specific [place] Urine Protein Urine Glucose (UA) Urine Ketones Urine Blood Urine Nitrite Ur Leukocyte Esterase Urine RBC Urine WBC Ur Squamous Epith Cells Urine Bacteria Hyaline Casts Urine Opiates Screen Ur Buprenorphine Scrn Ur Oxycodone Screen Urine Methadone Screen Urine Fentanyl Screen Ur Barbiturates Screen Ur Phencyclidine Scrn Ur Amphetamines Screen U Benzodiazepines Scrn Urine Cocaine Screen U Marijuana (THC) Screen 03/24/25 03/24/25 03/24/25 20:39 20:39 20:39 WBC RBC Hgb Hct MCV MCH MCHC RDW Plt Count MPV Immature Gran % (Auto) Neut % (Auto) Lymph % (Auto) [place] % (Auto) Eos % (Auto) Baso % (Auto) Lymph # (Auto) [place] # (Auto) Eos # (Auto) Baso # (Auto) Abs Immat Gran (auto) Absolute Neuts (auto) Absolute Nucleated RBC Nucleated RBC % (auto) O2 Saturation ABG pH at Pt Temp ABG pCO2 at Pt Temp ABG pO2 at Pt Temp ABG HCO3 ABG Base Excess (Actual) VBG pH VBG pCO2 VBG pO2 VBG HCO3 VBG O2 Saturation VBG Base Excess Sodium Potassium Chloride Carbon Dioxide Anion Gap BUN Creatinine Estim Creat Clear Calc Cancelled Estimated GFR > 60 Cancelled Random Glucose 103 Cancelled Lactic Acid 1.3 Calcium 9.0 D Phosphorus Magnesium Total Bilirubin AST ALT Alkaline Phosphatase Total Creatine Kinase Troponin I High Sens NT-Pro-B Natriuret Pep Total Protein Albumin Urine Color Urine Appearance Urine pH Ur Specific [place] Urine Protein Urine Glucose (UA) Urine Ketones Urine Blood Urine Nitrite Ur Leukocyte Esterase Urine RBC Urine WBC Ur Squamous Epith Cells Urine Bacteria Hyaline Casts Urine Opiates Screen Ur Buprenorphine Scrn Ur Oxycodone Screen Urine Methadone Screen Urine Fentanyl Screen Ur Barbiturates Screen Ur Phencyclidine Scrn Ur Amphetamines Screen U Benzodiazepines Scrn Urine Cocaine Screen U Marijuana (THC) Screen 03/24/25 03/24/25 03/24/25 20:39 20:39 20:39 WBC RBC Hgb Hct MCV MCH MCHC RDW Plt Count MPV Immature Gran % (Auto) Neut % (Auto) Lymph % (Auto) [place] % (Auto) Eos % (Auto) Baso % (Auto) Lymph # (Auto) [place] # (Auto) Eos # (Auto) Baso # (Auto) Abs Immat Gran (auto) Absolute Neuts (auto) Absolute Nucleated RBC Nucleated RBC % (auto) O2 Saturation ABG pH at Pt Temp ABG pCO2 at Pt Temp ABG pO2 at Pt Temp ABG HCO3 ABG Base Excess (Actual) VBG pH VBG pCO2 VBG pO2 VBG HCO3 VBG O2 Saturation VBG Base Excess Sodium Potassium Chloride Carbon Dioxide Anion Gap BUN Creatinine Estim Creat Clear Calc Estimated GFR Random Glucose Lactic Acid Calcium Cancelled Phosphorus 1.0 L* Magnesium 3.3 H Cancelled Total Bilirubin 0.5 Cancelled AST 53 H ALT Alkaline Phosphatase Total Creatine Kinase Troponin I High Sens NT-Pro-B Natriuret Pep Total Protein Albumin Urine Color Urine Appearance Urine pH Ur Specific [place] Urine Protein Urine Glucose (UA) Urine Ketones Urine Blood Urine Nitrite Ur Leukocyte Esterase Urine RBC Urine WBC Ur Squamous Epith Cells Urine Bacteria Hyaline Casts Urine Opiates Screen Ur Buprenorphine Scrn Ur Oxycodone Screen Urine Methadone Screen Urine Fentanyl Screen Ur Barbiturates Screen Ur Phencyclidine Scrn Ur Amphetamines Screen U Benzodiazepines Scrn Urine Cocaine Screen U Marijuana (THC) Screen 03/24/25 03/24/25 03/24/25 20:39 20:39 20:39 WBC RBC Hgb Hct MCV MCH MCHC RDW Plt Count MPV Immature Gran % (Auto) Neut % (Auto) Lymph % (Auto) [place] % (Auto) Eos % (Auto) Baso % (Auto) Lymph # (Auto) [place] # (Auto) Eos # (Auto) Baso # (Auto) Abs Immat Gran (auto) Absolute Neuts (auto) Absolute Nucleated RBC Nucleated RBC % (auto) O2 Saturation ABG pH at Pt Temp ABG pCO2 at Pt Temp ABG pO2 at Pt Temp ABG HCO3 ABG Base Excess (Actual) VBG pH VBG pCO2 VBG pO2 VBG HCO3 VBG O2 Saturation VBG Base Excess Sodium Potassium Chloride Carbon Dioxide Anion Gap BUN Creatinine Estim Creat Clear Calc Estimated GFR Random Glucose Lactic Acid Calcium Phosphorus Magnesium Total Bilirubin AST Cancelled ALT 40 Cancelled Alkaline Phosphatase 59 Cancelled Total Creatine Kinase 1430 H Troponin I High Sens NT-Pro-B Natriuret Pep Total Protein 6.8 Albumin Urine Color Urine Appearance Urine pH Ur Specific [place] Urine Protein Urine Glucose (UA) Urine Ketones Urine Blood Urine Nitrite Ur Leukocyte Esterase Urine RBC Urine WBC Ur Squamous Epith Cells Urine Bacteria Hyaline Casts Urine Opiates Screen Ur Buprenorphine Scrn Ur Oxycodone Screen Urine Methadone Screen Urine Fentanyl Screen Ur Barbiturates Screen Ur Phencyclidine Scrn Ur Amphetamines Screen U Benzodiazepines Scrn Urine Cocaine Screen U Marijuana (THC) Screen 03/24/25 03/24/25 03/24/25 20:39 20:39 22:10 WBC RBC Hgb Hct MCV MCH MCHC RDW Plt Count MPV Immature Gran % (Auto) Neut % (Auto) Lymph % (Auto) [place] % (Auto) Eos % (Auto) Baso % (Auto) Lymph # (Auto) [place] # (Auto) Eos # (Auto) Baso # (Auto) Abs Immat Gran (auto) Absolute Neuts (auto) Absolute Nucleated RBC Nucleated RBC % (auto) O2 Saturation ABG pH at Pt Temp ABG pCO2 at Pt Temp ABG pO2 at Pt Temp ABG HCO3 ABG Base Excess (Actual) VBG pH VBG pCO2 VBG pO2 VBG HCO3 VBG O2 Saturation VBG Base Excess Sodium Potassium Chloride Carbon Dioxide Anion Gap BUN Creatinine Estim Creat Clear Calc Estimated GFR Random Glucose Lactic Acid Calcium Phosphorus Magnesium Total Bilirubin AST ALT Alkaline Phosphatase Total Creatine Kinase 2629 H Troponin I High Sens 41.9 H NT-Pro-B Natriuret Pep 110.6 Total Protein Cancelled Albumin 4.2 Cancelled Urine Color Urine Appearance Urine pH Ur Specific [place] Urine Protein Urine Glucose (UA) Urine Ketones Urine Blood Urine Nitrite Ur Leukocyte Esterase Urine RBC Urine WBC Ur Squamous Epith Cells Urine Bacteria Hyaline Casts Urine Opiates Screen Ur Buprenorphine Scrn Ur Oxycodone Screen Urine Methadone Screen Urine Fentanyl Screen Ur Barbiturates Screen Ur Phencyclidine Scrn Ur Amphetamines Screen U Benzodiazepines Scrn Urine Cocaine Screen U Marijuana (THC) Screen 03/24/25 03/24/25 03/25/25 22:12 23:20 05:24 WBC 11.4 H RBC 3.74 L Hgb 11.7 L Hct 36.0 L MCV 96.3 MCH 31.3 MCHC 32.5 RDW 15.4 Plt Count 244 MPV 9.8 Immature Gran % (Auto) 0.7 H Neut % (Auto) 59.0 Lymph % (Auto) 28.1 [place] % (Auto) 11.2 H Eos % (Auto) 0.6 Baso % (Auto) 0.4 Lymph # (Auto) 3.2 [place] # (Auto) 1.3 H Eos # (Auto) 0.1 Baso # (Auto) 0.1 Abs Immat Gran (auto) 0.08 H Absolute Neuts (auto) 6.7 Absolute Nucleated RBC 0.000 Nucleated RBC % (auto) 0.0 O2 Saturation ABG pH at Pt Temp ABG pCO2 at Pt Temp ABG pO2 at Pt Temp ABG HCO3 ABG Base Excess (Actual) VBG pH 7.35 VBG pCO2 40 VBG pO2 213 VBG HCO3 23 VBG O2 Saturation 100.0 VBG Base Excess -2.3 Sodium 144 Potassium 4.6 Chloride 116 H Carbon Dioxide 22 Anion Gap 11 L BUN 18 H Creatinine 1.22 Estim Creat Clear Calc 102.2 Estimated GFR > 60 Random Glucose 85 Lactic Acid Calcium 7.8 L D Phosphorus 4.7 H Magnesium 3.1 H Total Bilirubin 0.6 AST 109 H ALT 37 Alkaline Phosphatase 52 Total Creatine Kinase 7984 H Troponin I High Sens NT-Pro-B Natriuret Pep Total Protein 5.7 L Albumin 3.4 L Urine Color Yellow Urine Appearance Turbid Urine pH 5.0 Ur Specific [place] 1.025 Urine Protein 100 (2+) H Urine Glucose (UA) Negative Urine Ketones Negative Urine Blood Large (3+) H Urine Nitrite Negative Ur Leukocyte Esterase Negative Urine RBC 0-2 Urine WBC 0-5 Ur Squamous Epith Cells 0-2 Urine Bacteria None Seen Hyaline Casts >20 Urine Opiates Screen POSITIVE H Ur Buprenorphine Scrn Not Detected Ur Oxycodone Screen Not Detected Urine Methadone Screen Positive H Urine Fentanyl Screen POSITIVE H Ur Barbiturates Screen Not Detected Ur Phencyclidine Scrn Not Detected Ur Amphetamines Screen Not Detected U Benzodiazepines Scrn POSITIVE H Urine Cocaine Screen POSITIVE H U Marijuana (THC) Screen POSITIVE H 03/25/25 05:25 WBC RBC Hgb Hct MCV MCH MCHC RDW Plt Count MPV Immature Gran % (Auto) Neut % (Auto) Lymph % (Auto) [place] % (Auto) Eos % (Auto) Baso % (Auto) Lymph # (Auto) [place] # (Auto) Eos # (Auto) Baso # (Auto) Abs Immat Gran (auto) Absolute Neuts (auto) Absolute Nucleated RBC Nucleated RBC % (auto) O2 Saturation ABG pH at Pt Temp ABG pCO2 at Pt Temp ABG pO2 at Pt Temp ABG HCO3 ABG Base Excess (Actual) VBG pH 7.42 VBG pCO2 33 VBG pO2 99 VBG HCO3 22 VBG O2 Saturation 99.0 VBG Base Excess -1.4 Sodium Potassium Chloride Carbon Dioxide Anion Gap BUN Creatinine Estim Creat Clear Calc Estimated GFR Random Glucose Lactic Acid Calcium Phosphorus Magnesium Total Bilirubin AST ALT Alkaline Phosphatase Total Creatine Kinase Troponin I High Sens NT-Pro-B Natriuret Pep Total Protein Albumin Urine Color Urine Appearance Urine pH Ur Specific [place] Urine Protein Urine Glucose (UA) Urine Ketones Urine Blood Urine Nitrite Ur Leukocyte Esterase Urine RBC Urine WBC Ur Squamous Epith Cells Urine Bacteria Hyaline Casts Urine Opiates Screen Ur Buprenorphine Scrn Ur Oxycodone Screen Urine Methadone Screen Urine Fentanyl Screen Ur Barbiturates Screen Ur Phencyclidine Scrn Ur Amphetamines Screen U Benzodiazepines Scrn Urine Cocaine Screen U Marijuana (THC) Screen Progress Note: A&P Assessment and plan (1) IVDU (intravenous drug user): Status: Acute (2) Hepatitis C: Status: Acute (3) Rhabdomyolysis: Status: Acute (4) ROWAN (acute kidney injury): Status: Acute Plan Assessment: 34-year-old gentleman admitted with acute agitation on background of polysubstance abuse requiring intubation for airway protection secondary to need for multiple high-dose sedative drips further complicated by acute kidney injury with rhabdomyolysis. Plan: Neuro: Toxic encephalopathy secondary to underlying IV drug abuse, continue to titrate off sedative drips as tolerated. Cardiac: No acute issues. Pulmonary: Intubated for airway protection, continue to titrate off as tolerated. Renal: Acute kidney injury with rhabdomyolysis, continue to trend CPK. Non oliguric. Continue IV fluid support. Continue to monitor renal indices and urine output. Endo: No acute issues. GI: No acute issues. ID: No acute issues Heme/Onc: No acute issues. Psych: No acute issues. Miscellaneous: No acute issues. Prophylaxis: Heparin, ppi Diet: NPO Critical care time spent: 60 minutes Quality Stroke Does the patient have a stroke diagnosis?: No VTE Prior VTE?: No VTE Risk Level:: Medical - moderate - high VTE Device Contraindication: N/A - Device Ordered VTE Drug Contraindication: N/A - Med Ordered
--- NOTE | 2025-03-25 11:14 | MHC.CLN ---
PT IS INTUBATED AND SEDATED DISCUSSED AT ROUNDS WITH MD CURRENTLY NPO IF TF NEEDED; RECOMMEND JEVITY 1.2 AT MAX GOAL RATE 45ML/HR TO PROVIDE 1296KCALS (2016KCALS WITH SEDATION; 23KCALS/KG), 60G PROTEIN, 872ML FREE WATER MONITOR TOLERANCE AND LYTES SEE FULL ASSESSMENT
--- NOTE | 2025-03-25 11:20 | HE.PHANOTE ---
RE: METHADONE DOSING Last dose of methadone 190 mg was given on 03/23/25 @1137 at [facility] [phone] per Imani SUTTON.
[2025-03-25] MEDS: methADONE HCl 20 MG/2 ML ORAL.CONC 190 MG PO (11:33)
[2025-03-25] MEDS: fentaNYL citrate/NS 1,000 MCG/100 ML PLAST..BAG 7.5 MCG IVCONT (12:37)
--- NOTE | 2025-03-25 14:58 | PHA.MEDREC ---
Pharmacy Consult ? Medication Reconciliation Pharmacy has completed the medication reconciliation. Unable to talk to patient due to him being intubated. Called and spoke to primary contact Lori [phone] who could only say that patient is taking adderall and methadone. PDMP said that adderall 20 mg #60 for 30 day supply was last filled on 10/21/24 at the [facility] [place]. Got med list from [facility] which only has the miralax prn order as active.
[2025-03-25 18:47] LABS: Anion Gap 12 (12-20); Blood Urea Nitrogen 14 mg/dL (9-16); Calcium 8.2 mg/dL (8.4-10.2); Carbon Dioxide 25 mmol/L (22-29); Chloride 114 mmol/L (96-108); Creatinine Clr Calc Pharmacy 112.4; Estimated Glomerular Filt Rate > 60; Potassium 3.8 mmol/L (3.3-5.1); Sodium 147 mmol/L (135-145)
[2025-03-25 19:30] LABS: Glucose, Whole Blood 102 mg/dL (60-115)
[2025-03-25] MEDS: Dextrose 5 % and Lactated Ring 1,000 ML 200 ML IVCONT (19:31)
[2025-03-25 19:44] LABS: Albumin Level 3.7 g/dL (3.5-5.0)
--- NOTE | 2025-03-25 19:52 | PC.NURSE ---
Patient sedated and intubated, patient very agitated this AM, Ketamine 100mg X1 given as ordered, fentanyl increase per protocol, see MAR for full detail, patient nods to answer questions at times, Levophed titrated off and tolerated, Glucose 52 this evening, Provider aware, D50 given as ordered and POC rechecked, Martines removed and patient voided 650 immediately after, condom catheter in place requested to remove and re voided in urinal 750ml.
[2025-03-26] VITALS (19 sets, daily range): BP systolic 115–138; BP diastolic 53–77; PULSE 62–85; RESP 12–23; TEMP 34.9–36.7; O2SAT 42–99
[2025-03-26 00:01] LABS: Glucose, Whole Blood 98 mg/dL (60-115)
[2025-03-26] MEDS: 0.9 % Sodium Chloride Flush 3 ML SYRINGE IVFLUSH ×2 (00:12→07:54)
[2025-03-26] MEDS: Dextrose 5 % and Lactated Ring 1,000 ML 200 ML IVCONT ×3 (01:03→11:29)
[2025-03-26] MEDS: fentaNYL citrate/NS 1,000 MCG/100 ML PLAST..BAG 7.5 MCG IVCONT (01:55)
[2025-03-26 05:47] LABS: MANUAL DIFF FLAG NO
[2025-03-26 05:49] LABS: VBG HCO3 26 mmol/L (22-26); VBG O2 % Saturation 93.0 %
[2025-03-26 05:49] LABS: Hematocrit 34.6 % (42.0-52.0); Hemoglobin 11.4 g/dl (14.0-18.0); Imm Gran Abs Auto 0.04 X10*3/uL (0.00-0.03); Imm Gran Pct Auto 0.4 % (0.0-0.4); Lymphocytes Absolute Auto 2.5 X10*3/uL (1.2-4.9); Mean Corpuscular HGB Conc 32.9 g/dl (31.0-36.0); Mean Corpuscular Hemoglobin 31.5 pg (27.0-33.0); Mean Corpuscular Volume 95.6 fL (80.0-98.0); NRBC Abs Auto 0.000 X10*3/uL (0.0-0.012); NRBC Pct Auto 0.0 /100WBC (0.0-0.2); Platelet Count 184 X10*3/uL (160-400); Red Blood Count 3.62 X10*6/uL (4.60-5.80); White Blood Count 9.3 X10*3/uL (4.8-10.8)
[2025-03-26 05:50] LABS: Venous Blood Gas Refer to POC result
[2025-03-26 06:01] LABS: Albumin Level 3.4 g/dL (3.5-5.0); Anion Gap 11 (12-20); Blood Urea Nitrogen 9 mg/dL (9-16); Calcium 8.1 mg/dL (8.4-10.2); Carbon Dioxide 25 mmol/L (22-29); Chloride 115 mmol/L (96-108); Creatinine Clr Calc Pharmacy 126.0; Estimated Glomerular Filt Rate > 60; Magnesium 2.3 mg/dL (1.6-2.6); Potassium 3.7 mmol/L (3.3-5.1); Sodium 147 mmol/L (135-145)
--- NOTE | 2025-03-26 07:19 | PC.NURSE ---
Critical Care Nursing Note Assumed care of the patient at 1900. The patient remained intubated and sedated throughout the shift. Patient has breaks in sedation, at these times he opens his eyes, tracks and attempts to speak. Versed 4mg IVP administered as needed. Patient was bladder scanned for >700, straight cath performed at 0130 for 750ml of dark yellow/brown urine, due to void at 0730. Patient became clearer throughout the shift, following commands and able to write a small note.
[2025-03-26] MEDS: Potassium Phosphate/NS 15 MMOL/250 ML PLAST..BAG 62.5 MMOL IV (07:53)
[2025-03-26] MEDS: Calcium Gluconate/NaCl,Iso-Osm 1 GM/50 ML PLAST..BAG IV (07:53)
[2025-03-26] MEDS: Chlorhexidine Gluc Oral Rinse 15 ML MOUTHWASH BUCCAL (07:53)
[2025-03-26] MEDS: methADONE HCl 20 MG/2 ML ORAL.CONC 190 MG PO (07:54)
[2025-03-26] MEDS: dexmedeTOMIDine HCL/NS 400 MCG/100 ML PLAST..BAG 34.09 MCG IVCONT (09:23)
--- NOTE | 2025-03-26 10:34 | P.PNCC_ITS ---
Subjective Subjective Date of Service: 03/26/25 Interval History: 34-year-old gentleman with underlying history of IV drug abuse, hepatitis-C admitted on 03/24/2025 with vegetations encephalopathy requiring intubation for airway protection secondary to need for multiple sedative drips. On ER evaluation patient also with acute kidney injury with rhabdomyolysis started on IV fluid support and admitted to the intensive care. No events overnight. Now tolerating pressor support trial. Critical Care Time (minutes): 60 Physical Exam 2 Vital Signs: Vital Signs: Last Vital Signs Temp 98.1 F 03/26/25 08:00 Pulse 63 03/26/25 10:00 Resp 15 03/26/25 10:00 BP 125/63 03/26/25 10:00 Pulse Ox 95 03/26/25 10:00 O2 Del Method Mechanical Ventil ation 03/26/25 10:00 FiO2 21 03/26/25 10:00 BMI result Body Mass Index 30.0 Const: General: no acute distress and other (Sedated on ventilatory support) Eyes: Sclerae: sclerae normal EOM: EOMs intact bilaterally Neck: Neck: Yes no lymphadenopathy, Yes trachea midline and Yes supple Resp: Effort & Inspection: normal respiratory effort and no respiratory distress Auscultation: clear to auscultation bilaterally Cardio: Rate: regular rate Rhythm: regular rhythm Heart sounds: no gallops, no murmurs and no rubs GI: Palpation (GI): Soft to palpation and Other GI palpation findings present ( Nontender) Auscultation: normal bowel sounds Extrem: General: Yes no pedal edema, No clubbing and No cyanosis Objective Data Labs 03/26/25 05:39 03/26/25 05:39 Labs: Laboratory Results - last 24 hr 03/25/25 03/25/25 03/25/25 10:52 17:56 19:27 WBC RBC Hgb Hct MCV MCH MCHC RDW Plt Count MPV Immature Gran % (Auto) Neut % (Auto) Lymph % (Auto) [place] % (Auto) Eos % (Auto) Baso % (Auto) Lymph # (Auto) [place] # (Auto) Eos # (Auto) Baso # (Auto) Abs Immat Gran (auto) Absolute Neuts (auto) Absolute Nucleated RBC Nucleated RBC % (auto) VBG pH VBG pCO2 VBG pO2 VBG HCO3 VBG O2 Saturation VBG Base Excess Sodium 147 H Potassium 3.8 Chloride 114 H Carbon Dioxide 25 Anion Gap 12 BUN 14 Creatinine 1.11 Estim Creat Clear Calc 112.4 Estimated GFR > 60 POC Glucose 102 Random Glucose 51 L* Calcium 8.2 L Phosphorus Magnesium Total Creatine Kinase 56687 H 63375 H Albumin 3.7 03/25/25 03/26/25 03/26/25 23:58 05:39 05:45 WBC 9.3 RBC 3.62 L Hgb 11.4 L Hct 34.6 L MCV 95.6 MCH 31.5 MCHC 32.9 RDW 15.9 Plt Count 184 MPV 9.6 Immature Gran % (Auto) 0.4 Neut % (Auto) 60.0 Lymph % (Auto) 26.9 [place] % (Auto) 10.0 Eos % (Auto) 2.4 Baso % (Auto) 0.3 Lymph # (Auto) 2.5 [place] # (Auto) 0.9 Eos # (Auto) 0.2 Baso # (Auto) 0.0 Abs Immat Gran (auto) 0.04 H Absolute Neuts (auto) 5.6 Absolute Nucleated RBC 0.000 Nucleated RBC % (auto) 0.0 VBG pH 7.46 H VBG pCO2 37 VBG pO2 66 VBG HCO3 26 VBG O2 Saturation 93.0 VBG Base Excess 3.2 Sodium 147 H Potassium 3.7 Chloride 115 H Carbon Dioxide 25 Anion Gap 11 L BUN 9 Creatinine 0.99 Estim Creat Clear Calc 126.0 Estimated GFR > 60 POC Glucose 98 Random Glucose 96 Calcium 8.1 L Phosphorus 2.4 L Magnesium 2.3 Total Creatine Kinase 9036 H Albumin 3.4 L Microbiology Microbiology Results: Microbiology 03/24/25 20:39 Blood - Venous Blood Culture - Preliminary No growth after 24 hours. 03/24/25 20:39 Blood - Venous Blood Culture - Preliminary No growth after 24 hours. Progress Note: A&P Assessment and plan (1) IVDU (intravenous drug user): Status: Acute (2) Hepatitis C: Status: Acute (3) Toxic encephalopathy: Status: Acute Plan Assessment: 34-year-old gentleman admitted with acute agitation on background of polysubstance abuse requiring intubation for airway protection secondary to need for multiple high-dose sedative drips further complicated by acute kidney injury with rhabdomyolysis. Plan: Neuro: Toxic encephalopathy secondary to underlying IV drug abuse, continue to titrate off sedative drips as tolerated. Cardiac: No acute issues. Pulmonary: Intubated for airway protection, continue to titrate off as tolerated. Renal: Acute kidney injury with rhabdomyolysis, improving. Non oliguric. Continue IV fluid support. Continue to monitor renal indices and urine output. Endo: No acute issues. GI: No acute issues. ID: No acute issues Heme/Onc: No acute issues. Psych: No acute issues. Miscellaneous: No acute issues. Prophylaxis: Heparin, ppi Diet: NPO Critical care time spent: 60 minutes Quality Stroke Does the patient have a stroke diagnosis?: No VTE Prior VTE?: No VTE Risk Level:: Medical - moderate - high VTE Device Contraindication: N/A - Device Ordered VTE Drug Contraindication: N/A - Med Ordered
[2025-03-26 11:33] LABS: Glucose, Whole Blood 122 mg/dL (60-115)
--- NOTE | 2025-03-26 11:40 | PC.NURSE ---
Addendum entered by Josette Ram RN 03/26/25 12:38: Patient requesting to leave AMA. MD notified and at bedside - informed patient about risks of leaving AMA - patient still requesting to leave AMA. Monitor and IVs removed. Friend at bedside and agreeable to accompany patient. Original Note: Assumed care at 0700 - patient intubated and sedated. Sedation vacation initiated at 0932. Patient arousable, tolerating PSV 6/5 21%, following commands. Patient extubated to RA at 1110 w/o incident per MD order. NGT removed per MD order. Patients friend at bedside orientating to situation. Patient A&O x3, requesting to leave AMA at 1119. MD notified and at bedside. Patient agreeable to stay at this time due to previous medication administration. Tolerating thin liquids without signs of aspiration. VSS. Care ongoing.
--- NOTE | 2025-03-26 14:53 | P.DS_ITS ---
DS: Providers Provider Date of Service: 03/26/25 Date of admission: 03/24/25 21:01 Date of discharge: 03/26/25 Primary care physician: Unknown Physician DS: Diagnosis Discharge Diagnosis (1) IVDU (intravenous drug user): Status: Acute (2) Hepatitis C: Status: Acute (3) Toxic encephalopathy: Status: Acute DS: Summary Hospital Course Hospital Course: 34-year-old gentleman with underlying history of IV drug abuse, hepatitis-C admitted on 03/24/2025 with vegetations encephalopathy requiring intubation for airway protection secondary to need for multiple sedative drips. On ER evaluation patient also with acute kidney injury with rhabdomyolysis started on IV fluid support and admitted to the intensive care. Patient extubated uneventfully on 03/24/2025 in the morning. Thereafter patient decided to leave hospital against medical advice understanding repercussions of the decision including early . Status at Discharge Functional status at discharge: independent ambulation Time Attestation Total time managing care of this patient today: 90 mintues. Discharge Coordination Time (in mins): 25 Quality: Safe Use of Opioids Does Pt have an Active Cancer Diagnosis on the Problem List?: No Quality: Stroke Does the patient have a stroke diagnosis?: No Physical Exam Vital Signs: Vital Signs: Last Vital Signs Temp 98.1 F 03/26/25 08:00 Pulse 64 03/26/25 12:00 Resp 13 03/26/25 12:00 BP 115/59 L 03/26/25 12:00 Pulse Ox 97 03/26/25 12:00 O2 Del Method Room Air 03/26/25 12:00 FiO2 21 03/26/25 11:10 BMI result Body Mass Index 30.0 Const: General: no acute distress, alert and awake Eyes: Sclerae: sclerae normal EOM: EOMs intact bilaterally Neck: Neck: Yes no lymphadenopathy, Yes trachea midline and Yes supple Resp: Effort & Inspection: normal respiratory effort and no respiratory distress Auscultation: clear to auscultation bilaterally Cardio: Rate: regular rate Rhythm: regular rhythm Heart sounds: no gallops, no murmurs and no rubs GI: Palpation (GI): Soft to palpation and Other GI palpation findings present ( Nontender) Auscultation: normal bowel sounds Extrem: General: Yes no pedal edema, No clubbing and No cyanosis DS: Data Data Completed and Pending Completed studies during hospitalization [Text1]: Procedures Drainage of Right Hand Tendon, Open Approach (10/05/24) Labs on day of discharge: Laboratory Results - last 24 hr 03/25/25 03/25/25 03/25/25 17:56 19:27 23:58 WBC RBC Hgb Hct MCV MCH MCHC RDW Plt Count MPV Immature Gran % (Auto) Neut % (Auto) Lymph % (Auto) [place] % (Auto) Eos % (Auto) Baso % (Auto) Lymph # (Auto) [place] # (Auto) Eos # (Auto) Baso # (Auto) Abs Immat Gran (auto) Absolute Neuts (auto) Absolute Nucleated RBC Nucleated RBC % (auto) VBG pH VBG pCO2 VBG pO2 VBG HCO3 VBG O2 Saturation VBG Base Excess Sodium 147 H Potassium 3.8 Chloride 114 H Carbon Dioxide 25 Anion Gap 12 BUN 14 Creatinine 1.11 Estim Creat Clear Calc 112.4 Estimated GFR > 60 POC Glucose 102 98 Random Glucose 51 L* Calcium 8.2 L Phosphorus Magnesium Total Creatine Kinase 55798 H Albumin 3.7 03/26/25 03/26/25 03/26/25 05:39 05:45 11:30 WBC 9.3 RBC 3.62 L Hgb 11.4 L Hct 34.6 L MCV 95.6 MCH 31.5 MCHC 32.9 RDW 15.9 Plt Count 184 MPV 9.6 Immature Gran % (Auto) 0.4 Neut % (Auto) 60.0 Lymph % (Auto) 26.9 [place] % (Auto) 10.0 Eos % (Auto) 2.4 Baso % (Auto) 0.3 Lymph # (Auto) 2.5 [place] # (Auto) 0.9 Eos # (Auto) 0.2 Baso # (Auto) 0.0 Abs Immat Gran (auto) 0.04 H Absolute Neuts (auto) 5.6 Absolute Nucleated RBC 0.000 Nucleated RBC % (auto) 0.0 VBG pH 7.46 H VBG pCO2 37 VBG pO2 66 VBG HCO3 26 VBG O2 Saturation 93.0 VBG Base Excess 3.2 Sodium 147 H Potassium 3.7 Chloride 115 H Carbon Dioxide 25 Anion Gap 11 L BUN 9 Creatinine 0.99 Estim Creat Clear Calc 126.0 Estimated GFR > 60 POC Glucose 122 H Random Glucose 96 Calcium 8.1 L Phosphorus 2.4 L Magnesium 2.3 Total Creatine Kinase 9036 H Albumin 3.4 L Preliminary micro results at discharge 03/24/25 20:39 Blood Culture - Preliminary Blood - Venous No growth after 24 hours. 03/24/25 20:39 Blood Culture - Preliminary Blood - Venous No growth after 24 hours. Discharge Plan Discharge Patient Disposition: Left Against Medical Advice Discharge Diagnosis: Toxic encephalopathy Referrals: Physician,Unknown J [Primary Care Provider, Medical] - 1 Week Discharge Medications: No Action methadone 10 mg/mL Concentrate 190 mg PO DAILY polyethylene glycol 3350 17 gram/dose Powder 17 g PO DAILY PRN (Reason: Constipation) Discharge Orders: Discharge Order (Routine); Ordered 03/26/25 Ordered By: Phill Us Print Language: Swedish Care Plan Goals: Left against medical advice Health Concerns: Left against medical advice Plan of Treatment: Left against medical advice Assessment: Awake alert and competent to make his own decisions. Discharge Date/Time: 03/26/25 12:43
== END 2025-03-26 12:43 | disposition left against medical advice (07) | DRG 917 ==
LOC: HO.ED 21:01 → HO.EDOVER 21:20 → HO.ICU 21:24
PROVIDERS: Physician Assistant; Admitting Provider Registered Nurse Community Health; Emergency Provider Emergency Medicine; Visit Provider Internal Medicine Pulmonary Disease
DX: T65.91XA Toxic effect of unspecified substance, accidental (unintentional), initial encounter (principal); G92.8 Other toxic encephalopathy; M62.82 Rhabdomyolysis; N17.9 Acute kidney failure, unspecified; F19.10 Other psychoactive substance abuse, uncomplicated; F11.20 Opioid dependence, uncomplicated
CPT/HCPCS: 36415; 70450; 71045; 71260; 72125; 74177; 80048; 80053; 80307; 81001; 82040; 82550; 82803; 82947; 83605; 83735; 83880; 84100; 84484; 85025; 87040; 93005; 93306; 94002; 94003; 99284; J0131; J0613; J1200; J1308; J1630; J1644; J2250; J2470; J2543; J2704; J3010; J3360; J3374; J7120; P9047; Q9967

== ENCOUNTER → 2025-03-24 19:46 | Outpatient (BNV) | payer OTHER, SELFPAY | PROVIDERS: Admitting Provider Registered Nurse Community Health; Emergency Provider Emergency Medicine; Visit Provider Radiology Diagnostic Radiology | DX: K59.00 Constipation, unspecified (principal); J98.11 Atelectasis; M54.2 Cervicalgia; Z97.8 Presence of other specified devices; R41.82 Altered mental status, unspecified; Z93.0 Tracheostomy status | CPT/HCPCS: 70450; 71260; 72125; 74177 ==

== ENCOUNTER → 2025-03-24 19:48 | Outpatient (BNV) | payer OTHER, SELFPAY | PROVIDERS: Admitting Provider Registered Nurse Community Health; Emergency Provider Emergency Medicine; Visit Provider Internal Medicine Cardiovascular Disease | DX: R94.31 Abnormal electrocardiogram [ECG] [EKG] (principal); R41.82 Altered mental status, unspecified | CPT/HCPCS: 93010 ==

== ENCOUNTER 2025-03-24 21:01 | Outpatient (BNV) | payer OTHER, SELFPAY | END 2025-03-25 09:53 | PROVIDERS: Admitting Provider Registered Nurse Community Health; Emergency Provider Emergency Medicine; Visit Provider Radiology Diagnostic Radiology | DX: T50.901A Poisoning by unspecified drugs, medicaments and biological substances, accidental (unintentional), initial encounter (principal) | CPT/HCPCS: 71045 ==

== ENCOUNTER 2025-03-24 21:01 | Outpatient (BNV) | payer OTHER, SELFPAY | END 2025-03-25 07:00 | PROVIDERS: Admitting Provider Registered Nurse Community Health; Emergency Provider Emergency Medicine; Visit Provider Internal Medicine Cardiovascular Disease | DX: I36.8 Other nonrheumatic tricuspid valve disorders (principal); I51.89 Other ill-defined heart diseases | CPT/HCPCS: 93306 ==

== ENCOUNTER → 2025-03-24 21:01 | Outpatient (BNV) | payer OTHER, SELFPAY | PROVIDERS: Admitting Provider Registered Nurse Community Health; Emergency Provider Emergency Medicine; Visit Provider Registered Nurse Community Health | DX: F19.90 Other psychoactive substance use, unspecified, uncomplicated (principal); B19.20 Unspecified viral hepatitis C without hepatic coma; G92.9 Unspecified toxic encephalopathy; I95.9 Hypotension, unspecified; N17.9 Acute kidney failure, unspecified; M62.82 Rhabdomyolysis; T17.908A Unspecified foreign body in respiratory tract, part unspecified causing other injury, initial encounter; A41.9 Sepsis, unspecified organism | CPT/HCPCS: 99291 ==

== ENCOUNTER → 2025-03-24 21:01 | Outpatient (BNV) | payer OTHER, SELFPAY | PROVIDERS: Admitting Provider Registered Nurse Community Health; Emergency Provider Emergency Medicine; Visit Provider Internal Medicine Pulmonary Disease | DX: F19.90 Other psychoactive substance use, unspecified, uncomplicated (principal); B19.20 Unspecified viral hepatitis C without hepatic coma; G92.9 Unspecified toxic encephalopathy | CPT/HCPCS: 99238; 99291 ==